=== PATIENT | female | born 1965 | race Caucasian/White ===

== ENCOUNTER 2019-11-20 12:14 | Observation (INO) | payer OTHER, MEDICARE, SELFPAY ==
[2019-09-19 11:06] VITALS: BMI 29.0
[2019-11-15 15:40] VITALS: BMI 29.0
--- NOTE | 2019-11-19 19:29 | HP.PCM_ITS ---
History and Physical Date of Admission: 11/20/19 HISTORY OF PRESENT ILLNESS 53 year old woman presents with complaints of bilateral macromastia as well as associated painful symptomatology of neck pain, thoracic back pain, bilateral shoulder pain from shoulder grooving from the weight of her breasts on her bra straps, and inframammary intertrigo for which she uses powders for relief. She denies any trauma to her breasts. Denies any nipple discharge. She has seen a Chiropractor in the past without much relief in her back pain. She has seen a Physical Therapist in the past without much relief in her back pain. She has a family history of breast cancer. The breast reduction mammaplasty procedure was approved by her insurance company. She had a recent mammogram on 09/25/19. She had a benign density in the right breast. There also are benign calcifications in both breasts. No significant masses, calcifications, or other findings are seen in either breast. Recommend 1 year screening next year. Her insurance company has approved the surgery. It is scheduled for 11/20/19. She presents today for a preop visit to answer any remaining questions and to sign her consent. PAST MEDICAL HISTORY Asthma COPD (chronic obstructive pulmonary disease) PAST SURGICAL HISTORY excision of lesion ALLERGIES No Known Allergies MEDICATIONS Albuterol Inhaler [Ventolin Hfa] Aspirin FAMILY HISTORY Other - Asthma SOCIAL HISTORY Smoking Status: Never smoker alcohol intake: never substance use type: does not use REVIEW OF SYSTEMS General - Denies fever, fatigue, and weight loss. Eyes - Denies cataracts and glaucoma. ENT - Denies nasal congestion and sore throat. Endocrine - Denies excessive thirst and urination. Skin - Denies suspicious lesions and skin cancer. Has inframammary intertrigo for which she uses powders for relief. Musculoskeletal - Denies joint pain, joint stiffness, weakness of muscles and joints, and arthritis. Has neck pain and back pain. Her neck and back pain involve cervical and thoracic area. Has bilateral shoulder pain from shoulder grooving from the weight of her breasts on her bra straps. Neuro - Denies headaches. Cardiovascular - Denies chest pain, fatigue, and shortness of breath with exertion. Psych - Denies anxiety. Has depression. Respiratory - Denies shortness of breath and chronic cough. Gastrointestinal - Denies nausea, vomiting, diarrhea, and constipation. Hematologic - Denies abnormal bruising and bleeding. Genitourinary - Denies hematuria and urinary frequency. PHYSICAL EXAMINATION General - Alert and oriented. Patient's bra size is DDD. HEENT - PERRL. EOMI. Throat is clear. Neck - Supple. No bony tenderness. There is some pericervical soft tissue tenderness. Lungs- Clear to auscultation. Heart - Regular rate and rhythm. Breasts - Patient has bilateral macromastia. No breast masses palpable. No axillary adenopathy noted. Distance from midclavicular line on the left to the nipple is 31 cm and from the nipple to the inframammary fold is 10 cm. Distance from midclavicular line on the right to the nipple is 30 cm and from nipple to the inframammary fold is 11 cm. Nipple areolar complex diameter is 7 cm bilaterally. No active inframammary int ertrigo noted at this time. Abdomen - Soft and non distended. Back - No bony tenderness noted. There is perivertebral soft tissue tenderness in the upper thoracic area. Extremities - FROM. No axillary adenopathy. Radial pulses are palpable. There is some bilateral shoulder tenderness with shoulder grooving from the weight of her breasts on her bra straps. Neuro - CN II-XII grossly intact. Psych - Normal and mood and affect. ASSESSMENT 1. Bilateral macromastia. 2. Neck pain. 3. Thoracic back pain. 4. Bilateral shoulder pain from shoulder grooving from the weight of the breasts on her bra straps. 5. Inframammary intertrigo. 6. Family history of breast cancer. PLAN Discussed with the patient the procedure of breast reduction mammoplasty. I feel this procedure would be beneficial in this patient as it would help relieve her painful symptomatology. Her insurance company has approved the surgery. It is scheduled for 11/20/2019. Her last mammogram was 09/25/19 which was negative for malignancy. I would remove approximately 500 g of breast tissue per side. We will send the tissue to pathology for analysis to rule out carcinoma. Discussed with patient the extent of scarring for this procedure. The biggest risk for wound healing problems is the T-zone area. Usually wound care and sometimes antibiotics are necessary for healing in this area. She would have drains in for a few days depending on the amount of tissue that is removed. She will be on antibiotics until the drains are removed. In general, the final breast size ranges from a high B to a low C cup. Patient voices understanding. Surgery will be done under general anesthesia with a surgical observation overnight stay in the hospital. Patient was informed of the risks and complications of the procedure including alternatives to surgery. These were discussed with her personally. She voices understanding and wishes to proceed. Some of the risks and complications were included in a form from the [employer]. She had some preop questions that were answered personally and to her satisfaction. Her office breast reduction consent was signed.
[2019-11-20] VITALS (14 sets, daily range): BP systolic 96–156; BP diastolic 54–99; PULSE 65–80; RESP 14–18; TEMP 36.1–36.9; O2SAT 16–100; BMI 29.0
--- NOTE | 2019-11-20 05:32 | EKG12_ITS ---
Test Reason : PRE OP Blood Pressure : / mmHG Vent. Rate : 075 BPM Atrial Rate : 075 BPM P-R Int : 148 ms QRS Dur : 086 ms QT Int : 396 ms P-R-T Axes : 050 060 055 degrees QTc Int : 442 ms Normal sinus rhythm with sinus arrhythmia Normal ECG Confirmed by PILAR ANGELA, JONN ([id number]), assignment desk editor PEPPER DIAMOND ([id number]) on 11/21/2019 11:14:46 AM Referred By: Diallo Bañuelos Confirmed By:JONN QUEZADA MD
[2019-11-20 06:05] LABS: Bedside Glucose 108 mg/dL (70-110)
[2019-11-20] MEDS: Lactated Ringers 1,000 ML 60 ML IV ×3 (06:15→13:01)
[2019-11-20] MEDS: Acetaminophen 500 MG Tablet 1000 MG PO ×2 (06:19→17:11)
[2019-11-20] MEDS: Scopolamine 1mg/72hr Patch 1 PATCH TD (06:30)
[2019-11-20] MEDS: Cefazolin 2 GM in 0.9% Normal Saline 100 ML IV (07:30)
--- NOTE | 2019-11-20 07:30 | BR_PTH ---
PATIENT: LUCIANO LOCO LOC: MS3 U#:[id number] AGE/SX: 53/F ROOM: [facility] [place] RE11/20/[address]: Dr. Diallo Bañuelos MD : 1965 BED: 1 DIS: 11/21/2019 SPEC #: [id number] RECD: 11/20/19 13:57 STATUS: VERÓNICA PAGE #: [id number] JESSICA: 11/20/19 07:[address]: Diallo Bañuelos DEPT: SURGICAL PATHOLOGY RECD BY: Ovi Lang ENTERED: 11/21/19 10:43 SP TYPE: MAMOPLASTY OTHR DR: Dr. Nayely Villalobos, DO Tissues: A - Right breast, NOS B - Left breast, NOS Procedures: Surgery Specimen Level IV HEADER OPERATION: Breast reduction mammoplasty PRE-OP DIAGNOSIS: Bilateral macromastia, neck pain, thoracic back pain, bilateral shoulder pain, inframammary intertrigo TISSUE SUBMITTED: A. Right breast tissue, B. Left breast tissue MICROSCOPIC DIAGNOSIS A. Right breast tissue, reduction mammoplasty: Fragments of benign breast tissue (535 gm). Skin, no pathologic diagnosis. B. Left breast tissue, reduction mammoplasty: Fragments of benign breast tissue (561 gm). Skin, no pathologic diagnosis. SJ:garret 11/22/19 MICROSCOPIC DESCRIPTION Slides are reviewed. GROSS DESCRIPTION A - Received in fixative is one container labeled with the patient's name and designated right breast. The specimen consists of 12 fragments of segura-yellow fibrofatty tissue ranging in size from 1 cm to 13 cm and weighing 535 gm. The larger fragment contains grossly unremarkable skin. The fragments are segura-yellow in appearance. Cut surfaces reveal mostly yellow tissue with focal white, firm tissue. No distinct mass lesion is identified. [employer] Worker sections are submitted in five cassettes. / AM:garret 11/21/19 B - Received in fixative is one container labeled with the patient's name and designated left breast tissue. The specimen consists of pieces of fibroadipose tissue with a few of the pieces showing overlying skin piece weighing in aggregate 561 gm and measuring 23 x 21 x 8 cm. Sections reveal yellow adipose cut surfaces mixed with segura-white fibrous area. No obvious mass lesion is identified. No skin lesion is identified. [employer] Worker sections are submitted in six cassettes. Cassette 6 contains the skin piece. / SJ:garret 11/21/19 TC:5 CPT: 56067 x2
--- NOTE | 2019-11-20 12:07 | OP.PCM_ITS ---
Report of Operation Date of Procedure: 11/20/19 Pre-Operative Diagnosis: 1. Bilateral macromastia. 2. Neck pain. 3. T horacic back pain. 4. Bilateral shoulder pain from shoulder grooving from the weight of the breasts on her bra straps. 5. Inframammary intertrigo. 6. Family history of breast cancer. Post-Operative Diagnosis: Same. Surgery/Procedure Performed:: Bilateral breast reduction mammaplasty. Description of Surgical Findings:: 53 year old woman presents with complaints of bilateral macromastia as well as associated painful symptomatology of neck pain, thoracic back pain, bilateral shoulder pain from shoulder grooving from the weight of her breasts on her bra straps, and inframammary intertrigo for which she uses powders for relief. She denies any trauma to her breasts. Denies any nipple discharge. She has seen a Chiropractor in the past without much relief in her back pain. She has seen a Physical Therapist in the past without much relief in her back pain. She has a family history of breast cancer. The breast reduction mammaplasty procedure was approved by her insurance company. She had a recent mammogram on 09/25/19. She had a benign density in the right breast. There also are benign calcifications in both breasts. No significant masses, calcifications, or other findings are seen in either breast. Recommend 1 year screening next year. Her insurance company has approved the surgery. Patient was informed of the risks and complications of the procedure including alternatives to surgery. These were discussed with the patient personally. Patient voices understanding and wishes to proceed. Some of the risks and complications were included in a form from the [place] [employer] [employer]. IV Fluids - 2000 ml. Urine Output - 600 ml. Tissue removed from the left breast - 544 grams. Tissue removed from the right breast - 542 grams. I used David absorbable hemostat, (I used 4 vials, 2 in each breast). Reference Number - [id number]. Lot Number - [id number]. Expiration - July 11, 2024, (2 vials in left breast). Reference Number - [id number]. Lot Number - [id number]. Expiration - September 10, 2023, (2 vials in right breast). pilot fuel engineer: Aj Pride. Type of Anesthesia:: General Specimen's removed: 1. Left breast tissue to Pathology. 2. Right breast tissue to Pathology. Drains: Sameer x2 (one in each breast). Estimated Blood Loss (mL): 250 ml. Fluids Replaced: 2600 ml (IV Fluids 2000 ml, Urine Output 600 ml). Description of Procedure: In the preop area, the patient was placed in the sitting position and preoperative markings were made. The sternum midline was marked down to the umbilicus. The inframammary folds were marked bilaterally. The midclavicular line was then marked down to the nipple, then from the nipple to the inframammary fold. The inframammary fold was then superimposed on the midclavicular line and I made a point 1 cm below that to be the new position of the nipple-areolar complex. 7 cm lines were then drawn divergent from that point to encompass the nipple-areolar complex. The distance between the divergent lines was 9 cm. The patient was then placed in the supine position and taken to the operating room and placed under general anesthesia and her breasts were prepped and draped in usual fashion. Ioban draping was also used. SCDs were placed for DVT prophylaxis. Perioperative antibiotics were given intravenously. A Girard catheter was also placed. I then tattooed the preoperative markings with methylene blue and 25-gauge needle. I also tattooed the 12 o'clock position of the nipple-areolar complex to help with positioning of the nipple-areolar complex when it is brought through the keyhole incision at the end of the procedure to minimize kinking and twisting of the central breast mound pedicle. I then bandar straight lines down from the lines drawn divergent around the nipple-areolar complex down to the inframammary fold. The width of the pedicle is 9 cm. I then used a 42 mm circular template for a new size of the nipple-areolar complex. The central markings were infiltrated with Xylocaine and epinephrine. The central skin was then deepithelialized. I started on the right side first and then went to the left side. I then mobilized medial and lateral breast flaps at the level of Naheed's fascia down to within a centimeter of the chest wall. This was met in the midline of the breast with dissection at the level of Naheed's fascia down to within a centimeter of the chest wall. Once the central breast mound pedicle was from the skin envelope, the reduction was then begun. Most of the tissue was removed from the superior aspect of the breast and the lateral aspect of the breast. I then sutured the leading edge of the medial and lateral breast flaps to the midline of the inframammary fold with 2-0 Vicryl suture. The vertical incision was approximated using surgical clips. The excess tissue from the medial and lateral breast flaps were excised and the horizontal incision was approximated using surgical clips. The patient was then placed in a sitting position. Using a vertical limb length of 4.5 cm, I bandar the new position of the new nipple-areolar complexes on both breasts. They were in good position on the central aspect of the breast mound. Good symmetry was noted between the left breast and the right breast. Good shape and contour and projection was noted and appeared clinically to be a C cup. The patient was then placed back in the supine position and the surgical clips were removed. The breast wounds were then irrigated with Irrisept 0.05% Chlorhexidine solution which was followed by saline irrigation. Hemostasis was obtained using electrocautery. The tissue removed from the left breast was 544 grams. The tissue removed from the right breast was 542 grams. The tissue that was removed from the breasts was sent to Pathology for analysis to rule out carcinoma. After hemostasis was obtained using electrocautery, I then sprayed David absorbable hemostat into both breast wounds. I used two vials for each side. I then placed a size 15 Sameer drain into each breast wound to be brought through the lateral aspect of the horizontal incision. I then closed the breast wounds by first approximating the leading edge of the medial and lateral breast flaps to the midline of the inframammary fold with 2-0 Vicryl suture. The deep dermis and subcutaneous tissue of the vertical incision and the horizontal incisions were approximated using 3-0 Monocryl interrupted sutures. The horizontal incision was then approximated using 4-0 V-Loc unidirectional barbed running subcuticular suture. I also placed a few 4-0 Prolene vertical mattress interrupted sutures at the level of the Tzone. The vertical incision was then closed on the skin with 4-0 Prolene interrupted sutures. With a vertical limb length of 4.5 cm, I bandar a circular incision where the nipple-areolar complex would be brought through this keyhole incision. Incisions were made and the nipple areolar complex was brought through the keyhole incision. The 12 o'clock position of the nipple- areolar complex was lined up with the 12 o'clock position of the breast skin. The nipple-areolar complex was secured to the breast skin using 3-0 Monocryl interrupted sutures for deep dermis and subcutaneous tissue. The skin was approximated using 4-0 Prolene simple interrupted sutures. This was then covered with Histoacryl skin tissue adhesive. I sutured the drain to the skin using 3-0 nylon suture. At the end of the procedure, the breasts were soft with no evidence of vascular compromise. No evidence of hematomas were noted. The nipples were viable. I then dressed the breasts with a Kerlix gauze and a surgical bra. The patient tolerated the procedure well and will be sent to the recovery room in satisfactory condition. She will be admitted for surgical observation overnight stay. She will go home tomorrow once she is tolerating oral pain medication. I will remove the drains in a few days. She will be maintained on antibiotics until the drains are removed. She will keep her head elevated during the initial postoperative period. She will be maintained on a lifting restriction and keep her head elevated during the initial postoperative period. Postoperatively, she may get a compression sports bra as well. She will have the Girard removed in the morning. She will be sent home on antibiotics and pain medicine. Sutures will be removed in 1-2 weeks. Grafts/Implants Used: None. - Complications None. - Admit VTE Documentation VTE Present on Admission: No VTE Mechan Device Prophylaxis: SCD's VTE Pharm Prophylaxis ordered?: Yes Code Visit Surgery Charges CPT - 53463 ICD-10 - N62, M54.2, M54.6, M25.519, L30.4, Z80.3 40254-52 N62, M54.2, M54.6, M25.519, L30.4, Z80.3
[2019-11-20] MEDS: Cefazolin 1 GM/50 ML BAG IV ×2 (15:32→21:22)
[2019-11-20] MEDS: Ensure Surgery 237 ML LIQUID PO (17:10)
[2019-11-20] MEDS: Docusate Sodium 100 MG Capsule PO (21:22)
[2019-11-21] MEDS: Acetaminophen 500 MG Tablet 1000 MG PO ×3 (00:17→11:58)
[2019-11-21 02:15] VITALS: BP 98/59; PULSE 88; RESP 18; TEMP 36.8; O2SAT 94
[2019-11-21] MEDS: oxyCODONE 5 MG Tablet PO (02:19)
[2019-11-21] MEDS: Lactated Ringers 1,000 ML 60 ML IV (02:20)
[2019-11-21] MEDS: Cefazolin 1 GM/50 ML BAG IV (05:04)
[2019-11-21 05:17] LABS: Hemoglobin 9.8 g/dL (12.0-15.0); Mean Corp Hgb Conc 31.6 g/dL (32-36); Mean Corpuscular Hgb 28.4 pg (27.0-32.0); Mean Corpuscular Volume 89.9 fL (81-99); Mean Platelet Vol. 9.8 fl (6.2-12.0); Platelet Count 258 K/mm3 (150-450); RBC Distribution Width CV 13.2 % (11.6-14.6); RBC Distribution Width SD 42.9 fl (35.1-43.9); Red Blood Count 3.45 M/mm3 (4.2-5.4); White Blood Count 12.4 K/mm3 (4.4-11.0)
[2019-11-21 05:37] LABS: Anion Gap 4 (5-15); BUN 10 mg/dL (7-18); Calcium,Total 7.6 mg/dL (8.5-10.1); Chloride 106 mmol/L (98-107); EST Glomerular Filtration Rate 69 mL/min (>60); Est Glom Filt Rate - Afr Amer 84 mL/min (>60); Estimated Creatinine Clearance 57.83 ml/min; Glucose 117 mg/dL (74-106); Potassium 3.9 mmol/L (3.5-5.1); Prealbumin 18.2 mg/dL (20.0-40.0); Sodium Level 139 mmol/L (136-145)
[2019-11-21 07:50] VITALS: O2SAT 93
[2019-11-21] MEDS: Docusate Sodium 100 MG Capsule PO (08:19)
[2019-11-21] MEDS: Ensure Surgery 237 ML LIQUID PO ×2 (08:20→11:58)
[2019-11-21 08:24] VITALS: BP 112/72; PULSE 95; RESP 16; TEMP 36.8; O2SAT 96
[2019-11-21 11:54] VITALS: BP 105/65; PULSE 96; RESP 16; TEMP 37.1; O2SAT 96
--- NOTE | 2019-11-21 12:17 | PN.SURG_ITS ---
Subjective: Postop #1 Has incisional pain. Tolerating po analgesia. - Physical Exam Vitals/I&O's: Vital Signs Temp Pulse Resp BP Pulse Ox 98.7 F 96 16 105/65 96 11/21/19 11:54 11/21/19 11:54 11/21/19 11:54 11/21/19 11:54 11/21/19 11:54 Oxygen Flow Rate (L/min) 6 Oxygen Delivery Method Room Air Weight: 158 lb 15.253 oz Body Mass Index (BMI) 29.0 Intake and Output for Last 24 Hours 11/19/19 11/20/19 11/21/19 23:59 23:59 23:59 Intake Total 3063 / 3063 656 / 656 Output Total 959 / 1229 680 / 680 Balance 2104 / 1834 -24 / -24 Drainage from yesterday 134 ml, 180 ml today. General: Alert, Oriented x3 HEENT: PERRLA, EOMI Oral: Moist Mucosa Neck: Supple Abdomen: Soft, Non-Distended Skin: Incision - breast incisions are dry and intact. Breasts are soft and symmetrical. Good breast contour noted. Nipples are viable. Neurological: Cranial nerves II-XII grossly intact Psych/Mental Status: Normal Affect, Appropriate Laboratory Results 11/21/19 04:48: Sodium 139, Potassium 3.9, Chloride 106, Carbon Dioxide 29.0, A nion Gap 4 L, BUN 10, Creatinine 0.90, Estim Creat Clear Calc 57.83, Est GFR (MDRD) Af Amer 84, Est GFR (MDRD) Non-Af 69, BUN/Creatinine Ratio 11.0, Glucose 117 H, Calcium 7.6 L, Prealbumin 18.2 L 11/21/19 04:48: WBC 12.4 H, RBC 3.45 L, Hgb 9.8 L, Hct 31.0 L, MCV 89.9, MCH 28.4, MCHC 31.6 L, RDW Std Deviation 42.9, RDW Coeff of Ana Maria 13.2, Plt Count 258, MPV 9.8 Current Medications Acetaminophen (Tylenol) 1,000 mg PO Q6 CLARISA Last Admin: 11/21/19 11:58 Dose: 1,000 mg Documented by: Albuterol Sulfate (Ventolin Aerosols) 2.5 mg INHALATION Q4H PRN PRN Reason: Wheezing Docusate Sodium (Colace) 100 mg PO BID [facility] Last Admin: 11/21/19 08:19 Dose: 100 mg Documented by: Enteral Nutritional Formula (Ensure Surgery) 237 ml PO TIDCM [facility] Last Admin: 11/21/19 11:58 Dose: 237 ml Documented by: Gabapentin (Neurontin) 200 mg PO TIDCM [facility] Last Admin: 11/21/19 11:56 Dose: Not Given Documented by: Hydromorphone HCl (Dilaudid Inj) 0.5 - 1 mg IV Q3H PRN PRN PRN Reason: Pain Score 6-10/10 Cefazolin Sodium () 1 gm in 50 mls @ 100 mls/hr IV Q8 [facility] Last Infusion: 11/21/19 05:34 Dose: Infused Documented by: Magnesium Oxide (Mag-Ox 400) 400 mg PO BID PRN PRN PRN Reason: Constipation Ondansetron HCl (Zofran Odt) 4 mg PO Q6H PRN PRN PRN Reason: NAUSEA Oxycodone HCl (Oxyir) 5 - 10 mg PO Q4H PRN PRN PRN Reason: Pain Score 4-10/10 Last Admin: 11/21/19 02:19 Dose: 5 mg Documented by: Scopolamine HBr (Transderm-Scop) 1 patch TD Q3D [facility] Stop: 11/21/19 13:06 Last Admin: 11/20/19 06:30 Dose: 1 patch Documented by: Sodium Chloride () 10 - 40 ml IV UD PRN PRN Reason: SALINE FLUSH Medical Necessity - Tobacco Use Smoking Status: Never smoker Tobacco Use: Non-smoker Assessment/Plan 1. Bilateral macromastia. 2. Neck pain. 3. Thoracic back pain. 4. Bilateral shoulder pain from shoulder grooving from the weight of the breasts on her bra straps. 5. Inframammary intertrigo. 6. Family history of breast cancer. 7. s/p bilateral breast reduction mammaplasty. Has incisional pain. Tolerating po analgesia. Prealbumin was 18.2. Encourage nutritional supplementation with protein to help the healing process. Will remove the drains in the office. Discharge home today. Followup office Tuesday11/26/19. Keep head elevated and maintain lifting restriction. Continue surgical bra. Wrote script for Cefadroxil until the drains are removed. Wrote script for Percocet (40 tabs). Wrote scripts for Zofran for nausea (30 tabs) and a refill and for Colace for constipation (60 tabs).
--- NOTE | 2019-11-21 12:32 | DCINST_ITS ---
You will use the following diet at home:: No restrictions, Other - encourage nutritional supplementation with protein to help the healing process. Discharge Activity: May not drive while taking narcotic pain medications., May Not Shower - until the drains are removed., - - keep head elevated. no heavy lifting. May shower in (days): 5 - after the drains are removed in the office. May resume sexual activity in: No Restrictions Weight Bearing Status: Weight bearing as tolerated Lifting Restrictions: 20 lbs. Keep extremity elevated above heart level: - - elevate head. Call your doctor if your incision/area has: Continuous Slow Oozing, Sudden Increased Bleeding, Increased Pain/ Swelling, Increased Redness, Foul Smelling Discharge, Swelling at the incision site, - - black nipples. Call your doctor if you observe: Fever of 101 or Higher, Coldness, Increased Pain, Shortness of breath, Chest pain, Calf discomfort, Uncontrolled pain Suture Line Care: - - dry dressings every other day. Change Dressing in (Days):: 2 - dry dressings every other day. Cleanse incision/area with: - - may get incisions wet in the shower after the drains are removed in the office. Drain: Suction - jordyn drain x2 to bulb suction. empty and record drainage output daily. Allergies/Adverse Reactions: Allergies No Known Allergies Allergy (Verified 11/15/19 15:39) Medications to take at Discharge Albuterol Inhaler [Ventolin Hfa] 2 puff INHALATION Q6H PRN PRN 01/01/15 Cefadroxil [Duricef] 500 mg PO BID #10 cap 11/21/19 Docusate Sodium [Colace] 100 mg PO BID #60 cap 11/21/19 Ondansetron [Zofran Odt] 4 mg PO 4X/DAY PRN PRN #30 tab 11/21/19 Oxycodone HCl/Acetaminophen [Percocet 5/325] 1 tablet PO Q4H PRN PRN 7 Days #40 tablet 11/21/19 The following prescriptions were given: Docusate Sodium [Colace] 100 mg PO BID #60 cap Transmission Status: Pending to [facility]/pharmacy #[id number] Cefadroxil [Duricef] 500 mg PO BID #10 cap Transmission Status: Sent to [facility]/pharmacy #[id number] Oxycodone HCl/Acetaminophen [Percocet 5/325] 1 tablet PO Q4H PRN PRN 7 Days #40 tablet PRN Reason: Pain Score 4-5/10 Transmission Status: Received by [facility]/pharmacy #[id number] Ondansetron [Zofran Odt] 4 mg PO 4X/DAY PRN PRN #30 tab PRN Reason: NAUSEA Transmission Status: Pending to [facility]pharmacy #[id number] Primary Care Physician: Nayely Villalobos DO [Primary Care Provider] - Test Results: Test results from this visit will be discussed in further detail at your follow- up appointment, if applicable. Please Follow Up With: Diallo Bañuelos MD When: tuesday11/26/19. call [phone] for appt. Proposed Discharge Date: 11/21/19
--- NOTE | 2019-11-21 13:29 | CASEMGMT ---
ÁNGEL LOOMIS attempted to complete ANGUIANO form with patient. Patient has been discharged and has already left the hospital, unable to complete ANGUIANO form.
== END 2019-11-21 13:23 | disposition home or self-care (01) ==
LOC: MS3 20:27
PROVIDERS: Admitting Provider Surgery; Referring Provider Surgery; Visit Provider Surgery
PROC: 0H0U0ZZ Alteration of Left Breast, Open Approach (ICD-10-PCS; CPT 19318; principal; 2019-11-20 07:15)
DX: N62 Hypertrophy of breast (principal); M54.2 Cervicalgia; M54.6 Pain in thoracic spine; M25.512 Pain in left shoulder; M25.511 Pain in right shoulder; L30.4 Erythema intertrigo; Z80.3 Family history of malignant neoplasm of breast; Z79.82 Long term (current) use of aspirin; J44.9 Chronic obstructive pulmonary disease, unspecified
CPT/HCPCS: 19318; 36415; 80048; 82962; 84134; 85027; 88305; 93005; 96365; 96366; 99218; 99251; J7120; G0378; G0379; G0463; J2405; Q9968

== ENCOUNTER 2020-08-26 06:20 | Day surgery (SDC) | payer OTHER, MEDICARE, SELFPAY ==
[2020-07-24 15:31] VITALS: BMI 29.0
--- NOTE | 2020-08-25 21:18 | HP.PCM_ITS ---
History and Physical Date of Admission: 08/26/20 HISTORY OF PRESENT ILLNESS 54 year old woman presents with a painful actinic scar contour deformity right lower cheek after having surgery on 08/16/17 where she underwent excision 2.2 cm actinic lesion right lower cheek with rhomboid transposition skin flap reconstruction (12.5 cm2). At the medial edge of the healed incision there is a nodular scar contour deformity that has discomfort when she bumps it. She denies fever. She denies trauma. She presents at this time for further evaluation and treatment. PAST MEDICAL HISTORY Unspecified open wound of right cheek and temporomandibular area, sequela Actinic keratosis Intertrigo Shoulder pain Chronic thoracic back pain Chronic neck pain Macromastia Asthma COPD (chronic obstructive pulmonary disease) PAST SURGICAL HISTORY excision of lesion S/P bilateral breast reduction ALLERGIES No Known Allergies MEDICATIONS Albuterol Inhaler [Ventolin Hfa] Ondansetron [Zofran Odt] clopidogrel cyclobenzaprine metoprolol succinate FAMILY HISTORY Other - Asthma, Family history of skin cancer SOCIAL HISTORY Smoking Status: Never smoker alcohol intake: never substance use type: does not use REVIEW OF SYSTEMS General - Complains of fatigue, Denies fever and weight loss. Eyes - Denies eye pain, denies cataracts, denies glaucoma. ENT - Complains of decreased hearing, Denies nasal congestion and sore throat. CV - Complains of fatigue, Denies chest pain or discomfort, lightheadedness and shortness of breath with exertion. Resp - Denies cough and shortness of breath. GI - Denies nausea, vomiting, diarrhea and constipation. - Denies blood in urine and urinary frequency. MS - Denies joint pain, back pain, stiffness, muscle weakness and arthritis. Derm - Denies skin cancer. Has painful actinic scar contour deformity right lower cheek, has family history of skin cancer. Neuro - Denies headaches. Psych - Denies anxiety and depression. Endo - Denies excessive urination and excessive thirst. Heme - Denies bleeding and abnormal bruising. PHYSICAL EXAMINATION General - well developed, well nourished, in no acute distress. Head - normocephalic and atraumatic. on the right lower cheek is a 7 mm nodular scar contour deformity at the medial edge of previous scar from surgery in 08/30 where she underwent excision 2.2 cm actinic lesion right lower cheek with rhomboid transposition skin flap reconstruction (12.5 cm2). Slight discomfort when it is palpated. No ulceration. No discoloration noted. EENT - PERRL/EOM intact, conjunctiva and sclera clear. Throat is clear. She smiles symmetrically. No suspicious lesions noted Neck - no masses, thyromegaly, or abnormal cervical nodes. No suspicious lesions noted Lungs - clear bilaterally to auscultation. Heart - regular rate and rhythm. Pulses - radial pulses are palpable. Extremities - no clubbing, cyanosis, edema, or deformity noted with normal full range of motion of all joints. No suspicious lesions noted. Neurologic - cranial nerves II-XII grossly intact. Skin - no rashes. Cervical Nodes - no significant adenopathy. Axillary Nodes - no significant adenopathy. Psych - alert and cooperative; normal mood and affect; normal attention span and concentration. ASSESSMENT 1. 7 mm painful actinic scar contour deformity right lower cheek at medial edge of previous scar. 2. History of excision actinic keratosis right lower cheek with skin flap reconstruction. 3. Actinic keratosis right lower cheek. 4. Family history of skin cancer. PLAN Recommend excision of this painful actinic scar contour deformity right lower cheek at medial edge of previous scar and send the tissue to Pathology for analysis to rule out carcinoma. Surgery will be done under local anesthesia and IV sedation on an outpatient basis. She recently had cardiac stents placed and is on Plavix. Will check with her Bar Host/Hostess when it is safe to proceed with elective surgery after the stents were placed and if the Plavix can be stopped before the surgery. Patient was informed of the risks and complications of the procedure including alternatives to surgery. These were discussed with the patient personally. Patient voices understanding and wishes to proceed. Some of the risks and complications were included in a form from the [employer]. We discussed the current risks associated with COVID-19. While it is understood that there is a community spread of COVID-19, the risk of anna COVID-19 while at [facility] ([facility]) is very low; however, the risk cannot be completely mitigated because of the community spread of the disease. We discussed in detail the risk of exposure to and/or potential harm posed by the COVID-19 virus with having a surgery/procedure at this time versus the risk of delaying the surgery/procedure. It is not possible to know either the risk of delaying the surgery or procedure or chance of getting an infection with perfect accuracy, but a joint decision was made to proceed at this time with the scheduled surgery/procedure as indicated on the consent form. Patient was notified that we will need to comply with any screening or testing WC wishes to perform or that surgery may be delayed for any positive results. Discussed with the patient that I was tested for COVID-19 on 05/15/20 which was negative and on 05/29/20 which was negative and on 06/12/20 which was negative and on 06/26/20 which was negative and on 07/10/20 which was negative and on 07/31/20 which was negative and on 08/21/20 which was negative. My testing regimen at th is time is to be COVID-19 tested every 2 weeks or so. Procedure Criteria Procedure Type: Elective COVID Risk Discussion: The surgeon/proceduralist and patient have discussed in detail the risk of exposure to and/or potential harm posed by the COVID-19 virus with having a surgery/procedure at this time versus the risk of delaying the surgery/procedure. It is not possible to know either the risk of delaying the surgery or procedure or chance of getting an infection with perfect accuracy, but a joint decision was made between the patient and the surgeon/proceduralist to proceed at this time with the scheduled surgery/procedure as indicated on the consent form.
--- NOTE | 2020-08-26 | LES_PTH ---
PATIENT: LUCIANO LOCO LOC: [facility] [place] U#:[id number] AGE/SX: 54/F ROOM: RE08/26/[address]: Dr. Diallo Bañuelos MD : 1965 BED: DIS: 08/26/2020 SPEC #: [id number] RECD: 08/26/20 10:18 STATUS: VERÓNICA PAGE #: [id number] JESSICA: 08/26/20 00:[address]: Diallo Bañuelos DEPT: SURGICAL PATHOLOGY RECD BY: Rad Loaiza ENTERED: 08/26/20 10:19 SP TYPE: Lesion OTHR DR: Dr. Nayely Villalobos, Tissues: Skin of face, NOS Procedures: Surgery Specimen Level IV HEADER OPERATION: Excision painful scar contour deformity, medial cheek PRE-OP DIAGNOSIS: 7 mm painful actinic scar contour deformity right lower cheek at medial edge of previous scar TISSUE SUBMITTED: 7 mm painful actinic scar contour deformity right lower cheek at medial edge of previous scar, suture at 12 o'clock MICROSCOPIC DIAGNOSIS Right lower cheek, excision painful scar deformity: A piece of skin with focal dermal fibrosis consistent with scar and mild chronic inflammation. Negative for malignancy. MARCUS:garret 08/27/20 COMMENT Case has been reviewed in consultation with Dr. Herring who concurs with the above diagnosis. FAROOQ:SATINDER MICROSCOPIC DESCRIPTION Slides are reviewed. GROSS DESCRIPTION Received in fixative is one container labeled with the patient's name and designated right lower cheek. The specimen consists of an ellipse of light segura excised skin measuring 2 x 0.6 cm and a depth of excision measuring 0.5 cm. A suture is present at one tip. This tip and corresponding half is inked in yellow ink. The opposite half is inked in black ink. The specimen is serially sectioned and totally submitted in one cassette. / AM:garret 08/26/20 TC:5 CPT: 27990
[2020-08-26 06:48] VITALS: BP 146/92; PULSE 72; RESP 16; TEMP 36.6; O2SAT 96; BMI 29.0
[2020-08-26] MEDS: Lactated Ringers 1,000 ML 100 ML IV (07:10)
[2020-08-26] MEDS: Mupirocin Ointment 22gm Tube 1 APPLIC (09:43)
--- NOTE | 2020-08-26 09:49 | PCM.OPRPT ---
Report of Operation Date of Procedure: 08/26/20 Pre-Operative Diagnosis: 1. 7 mm painful actinic scar contour deformity right lower cheek at medial edge of previous scar. 2. History of excision actinic keratosis right lower cheek with skin flap reconstruction. 3. Actinic keratosis right lower cheek. 4. Family history of skin cancer. Post-Operative Diagnosis: Same. Surgery/Procedure Performed:: Surgical preparation right lower cheek at medial edge of previous scar with excisional debridement painful actinic scar contour deformity and 2.5 cm complex secondary wound closure. Description of Surgical Findings:: 54 year old woman presents with a painful actinic scar contour deformity right lower cheek after having surgery on 08/16/17 where she underwent excision 2.2 cm actinic lesion right lower cheek with rhomboid transposition skin flap reconstruction (12.5 cm2). At the medial edge of the healed incision there is a nodular scar contour deformity that has discomfort when she bumps it. She denies fever. She denies trauma. Patient was informed of the risks and complications of the procedure including alternatives to surgery. These were discussed with the patient personally. Patient voices understanding and wishes to proceed. Some of the risks and complications were included in a form from the [employer]. lead software developer: None Type of Anesthesia:: Local MAC - xylocaine with epinephrine and IV sedation. Specimen's removed: Painful actinic scar contour deformity right lower cheek at medial edge of previous scar to Pathology. Drains: None. Estimated Blood Loss (mL): 5 ml. Description of Procedure: Patient was taken to OR in supine position and was given IV sedation. The right face was prepped and draped in the usual fashion. SCD's were placed for DVT prophylaxis. Perioperative antibiotics were given intravenously. For the procedure, I wore an N95 mask and wore proper eyewear protection. The painful actinic scar contour deformity right lower cheek at medial edge of previous scar was infiltrated with xylocaine and epinephrine. After waiting 5 minutes for the anesthetic to take effect, I proceeded with surgical preparation right lower cheek at medial edge of previous scar with excisional debridement painful actinic scar contour deformity down into the subcutaneous tissue. A suture was marked at 12 oclock position for pathology orientation. The painful actinic scar contour deformity was sent to Pathology for analysis to rule out carcinoma. Hemostasis was obtained with electrocautery. A complex secondary wound closure was performed with 5-0 Monocryl interrupted sutures for the deep dermis and subcutaneous tissue. The skin was approximated with 6-0 Prolene simple interrupted sutures. Steri-strips were applied followed by antibiotic ointment. The length of the complex secondary wound closure was 2.5 cm. Patient tolerated the procedure well and was sent to PACU in satisfactory condition. Patient will be sent home on antibiotics and pain medication. She will keep her head elevated during the initial postoperative period. Patient will followup in a week for a wound check and for discussion of the pathology report and for removal of the sutures. Grafts/Implants Used: None. - Complications None. - Admit VTE Documentation VTE Present on Admission: No VTE Mechan Device Prophylaxis: SCD's VTE Pharm Prophylaxis ordered?: No Surgery Charges CPT - 81587 ICD-10 - S01.401S, L57.0, Z98.890, Z80.8 69188 S01.401S, L57.0, Z98.890, Z80.8
[2020-08-26 09:55] VITALS: BP 123/78; BP 146/92; PULSE 80; RESP 16; TEMP 36.6; O2SAT 97
[2020-08-26 10:00] VITALS: BP 133/80; BP 146/92; PULSE 74; RESP 16; O2SAT 95
--- NOTE | 2020-08-26 10:00 | DCINST_ITS ---
You will use the following diet at home:: No restrictions Discharge Activity: May not drive while taking narcotic pain medications., May Shower - in two days., - - keep head elevated. no heavy lifting. May shower in (days): 2 May resume sexual activity in: No Restrictions Ice area for (Minutes): 5 - as needed for facial swelling. Weight Bearing Status: Weight bearing as tolerated Lifting Restrictions: 20 lbs. Keep extremity elevated above heart level: - - elevate head. Call your doctor if your incision/area has: Continuous Slow Oozing, Sudden Increased Bleeding, Increased Pain/ Swelling, Increased Redness, Foul Smelling Discharge, Swelling at the incision site Call your doctor if you observe: Fever of 101 or Higher, Coldness, Increased Pain, Shortness of breath, Chest pain, Calf discomfort, Uncontrolled pain Suture Line Care: - - apply antibiotic ointment to suture line daily. Allergies/Adverse Reactions: Allergies No Known Allergies Allergy (Verified 08/26/20 06:46) Medications to take at Discharge Albuterol Inhaler [Ventolin Hfa] 2 puff INHALATION Q6H PRN PRN 01/01/15 Ondansetron [Zofran Odt] 4 mg PO 4X/DAY PRN PRN #30 tab 11/21/19 clopidogrel 75 mg tablet 75 mg PO DAILY 07/24/20 cyclobenzaprine 10 mg tablet 10 mg PO HS 07/24/20 metoprolol succinate 25 mg tablet,extended release 24 hr 25 mg PO DAILY 07/24/20 Clindamycin HCl [Cleocin] 300 mg PO TID #15 cap 08/26/20 Lactobacillus Acidophilus/Fos [Acidophilus Probiotic Tablet] 1 ea PO BID #20 tab 08/26/20 Oxycodone HCl/Acetaminophen [Percocet 5/325] 1 tablet PO Q6H PRN PRN 4 Days #20 tablet 08/26/20 The following prescriptions were given: Lactobacillus Acidophilus/Fos [Acidophilus Probiotic Tablet] 1 ea PO BID #20 tab Transmission Status: Pending to [id number] Clindamycin HCl [Cleocin] 300 mg PO TID #15 cap Transmission Status: Pending to [id number] Oxycodone HCl/Acetaminophen [Percocet 5/325] 1 tablet PO Q6H PRN PRN 4 Days #20 tablet PRN Reason: Pain Score 6-10 Transmission Status: Received by [id number] Primary Care Physician: Nayely Villalobos DO [Primary Care Provider] - Test Results: Test results from this visit will be discussed in further detail at your follow- up appointment, if applicable. Please Follow Up With: Diallo Bañuelos MD When: one week. call [phone] for appt. Proposed Discharge Date: 08/26/20
[2020-08-26 10:05] VITALS: BP 115/82; BP 146/92; PULSE 71; RESP 16; O2SAT 95
[2020-08-26 10:09] VITALS: BP 131/99; BP 146/92; PULSE 71; RESP 16; TEMP 36.2; O2SAT 96
[2020-08-26] MEDS: Acetaminophen 325 MG Tablet PO (10:45)
[2020-08-26] MEDS: oxyCODONE 5 MG Tablet PO (10:45)
[2020-08-26 11:10] VITALS: BP 142/83; BP 146/92; PULSE 72; RESP 16; TEMP 36.9; O2SAT 100
--- NOTE | 2020-08-27 16:48 | PCM.WORK.EX ---
Work/School Excuse Work/School Excuse for:: Caregiver/Parent/Family - Tl Hernandez, (spouse) Please excuse this person from:: Work From: 08/26/20 through: 08/27/20
== END 2020-08-26 11:10 | disposition home or self-care (01) ==
LOC: SDC 06:20 → AC 06:21
PROVIDERS: Anesthesiology; Referring Provider Surgery; Visit Provider Surgery
PROC: (CPT 13160; principal; 2020-08-26 08:30)
DX: L90.5 Scar conditions and fibrosis of skin (principal); S01.4 Open wound of cheek and temporomandibular area; L57.0 Actinic keratosis; Z98.890 Other specified postprocedural states; Z80.8 Family history of malignant neoplasm of other organs or systems; Z11.59 Encounter for screening for other viral diseases; I10 Essential (primary) hypertension; J44.9 Chronic obstructive pulmonary disease, unspecified; Z78.0 Asymptomatic menopausal state; Z95.5 Presence of coronary angioplasty implant and graft; Z79.02 Long term (current) use of antithrombotics/antiplatelets; Z79.899 Other long term (current) drug therapy
CPT/HCPCS: 00300; 13160; 15004; 87635; 88305; C9803; J7120; U0003

== ENCOUNTER 2021-08-10 06:52 | Day surgery (SDC) | payer MEDICARE, SELFPAY ==
[2021-08-10] VITALS (7 sets, daily range): BP systolic 119–155; BP diastolic 73–85; PULSE 59–66; RESP 18–20; TEMP 35.9–36.5; O2SAT 94–98; BMI 28.3
--- NOTE | 2021-08-10 | EGD_PTH ---
PATIENT: LUCIANO LOCO LOC: [facility] U#:[id number] AGE/SX: 55/F ROOM: RE08/10/[address]: Dr. Be Chapman DO : 1965 BED: DIS: 08/10/2021 SPEC #: [id number] RECD: 08/10/21 12:07 STATUS: VERÓNICA PAGE #: [id number] JESSICA: 08/10/21 00:[address]: Be Chapman DEPT: SURGICAL PATHOLOGY RECD BY: Rad Loaiza ENTERED: 08/10/21 12:07 SP TYPE: EGD BIOPSY MACI DR: Dr. Nayely Villalobos DO Tissues: A - Esophageal mucous membrane B - Gastric mucous membrane Procedures: Special Stain Group II Surgery Specimen Level IV Alcian Blue/PAS (control) HEADER OPERATION: EGD ([facility] [place]) PRE-OP DIAGNOSIS: GERD, hiatal hernia, dysphagia TISSUE SUBMITTED: A ? Distal esophagus biopsy, B ? Gastric body biopsy MICROSCOPIC DIAGNOSIS A. Distal esophagus, biopsy: Fragments of gastric mucosa with mild chronic inflammation. Intestinal metaplasia (goblet cell metaplasia) not identified. See comment. B. Gastric body, biopsy: Mild gastritis. See microscopic description and comment. SJ:garret 08/11/2021 COMMENT A. Alcian blue/PAS stain with matched control is used in the evaluation of the specimen. B. The results of immunohistochemistry for Helicobacter pylori will be reported separately ([id number]). MICROSCOPIC DESCRIPTION Slides are reviewed. GROSS DESCRIPTION A - Received in fixative is one container labeled with the patient's name and designated distal esophagus biopsy. The specimen consists of two irregular fragments of light segura soft tissue that in aggregate measure 0.6 x 0.3 x 0.1 cm. The specimen is totally submitted in one cassette. B - Received in fixative is one container labeled with the patient's name and designated gastric body biopsy. The specimen consists of multiple irregular fragments of light segura soft tissue that in aggregate measure 1.5 x 0.2 x 0.1 cm. The specimen is totally submitted in one cassette. / MARCUS:garret 08/10/21 TC:3 CPT: 86934 x2, 50785
[2021-08-10] MEDS: Lactated Ringers 1,000 ML 100 ML IV (07:22)
--- NOTE | 2021-08-10 08:25 | HP.PCM_ITS ---
HPI - General HPI Narrative HPI Details: LUCIANO LOCO, is a 55 F who presents to the office today for who presents to the office today for the evaluation of esophageal dysphagia. She has a history of a hiatal hernia resulting in a Schatzki's ring. She has undergone esophageal dilation 2 times. She also has a history of CAD status post PTCA with stents. She is not on Plavix or Brilinta. She does take a baby aspirin. She has no history of obstructive sleep apnea. She has no problems with anesthesia. She is mostly having her esophageal dysphagia with solids and pills. She has no esophageal dysphagia with liquids. She has no cough. She has no recent illnesses. She does take omeprazole 20 mg a day. She does not have any side effects from the medicine. She does on occasion have breakthrough heartburn. She denies any cough. She denies any abdominal pain. ROS Const Constitutional: No anorexia, fatigue, fever(s), weight change or sleep problems Eyes Eyes: No change in vision ENT ENT: No abnormal hearing, difficulty swallowing, mouth lesions, tongue swelling or throat swelling Resp Respiratory: No cough or shortness of breath Cardio Cardiology: No chest pain at rest, chest pain with exertion, shortness of breath or dyspnea on exertion Gastro GI: No difficulty swallowing Genitourinary-Female: No difficulty urinating or burning urination Musc Musculoskeletal: No joint pain, joint swelling, muscle weakness or decreased muscle mass Skin Skin: No hair loss in leg, yellowing of the eye, itchy eyes, rash, skin ulcer or skin swelling Neuro Neurology: No abnormal hearing, abnormal movements, confusion, unsteady gait/balance or memory loss Psych Psychiatric: No anxiety, No confusion and No memory loss Endo Endocrine: No fatigue or weight change Aller/Imm Allergy/Immunologic: No itchy eyes, throat swelling or tongue swelling Arsen/Lymp Hematologic/Lymphatic: No easy bleeding, easy bruising or enlarged lymph nodes Exam Const General: cooperative and comfortable Nutritional Appearance: average body habitus and well nourished HENND Head: normal to inspection Ears: hearing grossly normal bilaterally Nose: external nose normal Face and sinus: normal facial exam Mouth: oral mucosae normal Throat: posterior oropharynx normal Eyes General: appearance normal, both eyes and all related structures Neck Neck: normal visual inspection Chest Chest palpation & inspection: normal inspection of the chest and normal palpation of entire chest wall Resp Effort & Inspection: normal respiratory effort Auscultation: Bilateral: Clear to Auscultation Cardio Palpation: normal PMI Rate: regular rate Rhythm: regular rhythm GI Inspection: normal to inspection Auscultation: normal bowel sounds Percussion: normal to percussion Palpation: no hepatosplenomegaly Skin General: no rashes or lesions noted Neuro General: patient alert Extrem General: normal to inspection Psych Affect: normal affect Quality Reporting Tobacco Screening (CMS 138) Smoking Status: Never smoker Assessment and Plan Assessment and Plan (1) GERD (gastroesophageal reflux disease): Status: Acute Plan - Dr. Lr Friend, DO: Will not make any changes in her medications at this time. (2) Hiatal hernia: Status: Acute Plan - Dr. Lr Friend, DO: She will go endoscopic evaluation of her hiatal hernia. Regarding the size, depth and and if it is contributing to her esophageal dysphagia. (3) Dysphagia: Status: Acute Plan - Dr. Lr Friend, DO: She will undergo EGD with evaluation of her hiatal hernia and possible esophageal dilation. She was explained alternatives, risk, benefits including not withstanding bleeding, infection, sepsis, perforation, need for emergent surgery . She will have an ASA of 3. This is an updated H&P from when the patient was seen in office. Nothing has changed says that she was seen in the office. [facility] Medical History (Updated 08/05/21 @ 12:24 by Oneida Johnson) Actinic keratosis Asthma Cardiology follow-up encounter Chronic neck pain Chronic thoracic back pain COPD (chronic obstructive pulmonary disease) Difficulty chewing High cholesterol History of stress test Hypertension Intertrigo Macromastia Non-smoker Shoulder pain Status post placement of bone anchored hearing aid (BAHA) Unspecified open wound of right cheek and temporomandibular area, sequela Wears glasses Home Medications albuterol sulfate 2 puff INHALATION Q6H PRN PRN 01/01/15 [History Last Taken 08/26/20] metoprolol succinate 25 mg tablet,extended release 24 hr 25 mg PO DAILY 07/24/20 [History Last Taken 08/09/21] aspirin 81 mg PO DAILY 08/05/21 [History Last Taken 08/09/21] Allergy/AdvReac Type Severity Reaction Status Date / Time bee venom protein (honey bee) Allergy Intermediate Edema Verified 08/05/21 10:36 mushroom Allergy Intermediate Edema Verified 08/05/21 10:36 cat dander AdvReac Intermediate Itching Verified 08/05/21 10:36 and sneezing Family History Other Asthma Family history of skin cancer Surgical History (Updated 08/05/21 @ 12:24 by Oneida Johnson) History of bunionectomy History of cardiac catheterization History of coronary artery stent placement History of excision of lesion Hx of hysterectomy Hx of nasal septoplasty Hx of plastic surgery Hx of tonsillectomy S/P bilateral breast reduction Social History (Updated 09/07/20 @ 19:07 by Sneha Begum [employer]HE[employer]ICIAN [employer]GER [employer], [employer]HE[employer]IAN [employer]GER [employer]) Smoking Status: Never smoker alcohol intake: never substance use type: does not use additional social history: DOES NOT USE ASPIRIN DOES NOT USE IBUPROFEN Vital Signs Vital Signs Vital Signs: 08/10/21 07:24 08/10/21 07:26 Temperature 97.4 F L Temperature Source Temporal Pulse Rate 65 Respiratory Rate 20 H Respiratory Pattern Normal Blood Pressure 155/77 H Blood Pressure Mean 103 Blood Pressure Source Monitor Blood Pressure Position Semi-Fowlers Blood Pressure Location Left Arm Pulse Ox 97 Oxygen Delivery Method Room Air Weight Weight: 154 lb 15.759 oz Body Mass Index (BMI) 28.3
--- NOTE | 2021-08-10 08:30 | IMM_PTH ---
PATIENT: LUCIANO LOCO LOC: [facility] U#:[id number] AGE/SX: 55/F ROOM: RE08/10/[address]: Dr. Be Chapman DO : 1965 BED: DIS: 08/10/2021 SPEC #: [id number] RECD: 08/10/21 14:38 STATUS: VERÓNICA RESonia #: [id number] JESSICA: 08/10/21 08:[address]: Be Chapman DEPT: IMMUNOHISTOCHEMISTRY RECD BY: Nuria Minor ENTERED: 08/10/21 14:39 SP TYPE: IMMUNO OTHR DR: Dr. Nayely Villalobos DO Tissues: B - Stomach, NOS Procedures: H Pylori (initial) PHYSICIAN & INSTITUTION [place] [id number] SPECIMEN INFORMATION: Tissue Source: B ? Gastric body biopsy Clinical Info: GERD, hiatal hernia, dysphagia Specimen Number: [id number] CPT code: 01771 METHODOLOGY: Deparaffinized sections of prefer/formalin-fixed tissue or PAP/DQ stained slides are incubated with monoclonal/polyclonal antibodies/oligonucleotide probes. Localization is made via biotin free immunoperoxidase method. Appropriate controls are performed and reacted as expected. Results on target cell population are indicated in the following table: RESULTS: ANTIBODY / CLONE RESULT Block B H Pylori (polyclonal) negative These tests were developed and their performance characteristics determined by [facility]. They may not have been cleared or approved by the U.S. Food and Drug Administration. The FDA has determined that such clearance or approval is not necessary. INTERPRETATION: B. Gastric body, biopsy: Negative for Helicobacter pylori organisms. SJ:garret 08/11/2021
--- NOTE | 2021-08-10 08:54 | OP.EGD_ITS ---
Patient Name: Jazlyn Hernandez Procedure Date: 08/10/2021 8:26 AM Date of : 1965 Age: 55 Procedure: Upper GI endoscopy Indications: Dysphagia Providers: Be Chapman DO Referring MD: Be Chapman DO Medicines: Monitored Anesthesia Care Patient Profile: This is a 55 year old female. Refer to note in patient chart for documentation of history and physical. Patient has symptoms. The symptoms first began May. She is status post EGD for dilation within the past three years. Complications: No immediate complications. Procedure: Pre-Anesthesia Assessment: - Prior to the procedure, a History and Physical was performed, and patient medications and allergies were reviewed. The patient is competent. The risks and benefits of the procedure and the sedation options and risks were discussed with the patient. All questions were answered and informed consent was obtained. Patient identification and proposed procedure were verified by the physician in the pre-procedure area. Mental Status Examination: alert and oriented. Airway Examination: normal oropharyngeal airway and neck mobility. Respiratory Examination: clear to auscultation. CV Examination: normal. Prophylactic Antibiotics: The patient does not require prophylactic antibiotics. Prior Anticoagulants: The patient has taken no previous anticoagulant or antiplatelet agents. ASA Grade Assessment: II - A patient with mild systemic disease. After reviewing the risks and benefits, the patient was deemed in satisfactory condition to undergo the procedure. The anesthesia plan was to use moderate sedation / analgesia (conscious sedation). Immediately prior to administration of medications, the patient was re-assessed for adequacy to receive sedatives. The heart rate, respiratory rate, oxygen saturations, blood pressure, adequacy of pulmonary ventilation, and response to care were monitored throughout the procedure. The physical status of the patient was re-assessed after the procedure. After obtaining informed consent, the endoscope was passed under direct vision. Throughout the procedure, the patient's blood pressure, pulse, and oxygen saturations were monitored continuously. The Endoscope was introduced through the mouth, and advanced to the second part of duodenum. The upper GI endoscopy was accomplished without difficulty. The patient tolerated the procedure well. Moderate Sedation: Moderate (conscious) sedation was administered by the endoscopy nurse and supervised by the endoscopist. The patient's oxygen saturation, heart rate, blood pressure and response to care were monitored. Scope In: 8:37:15 AM Scope Out: 8:46:56 AM Total Procedure Duration Time 0 hours 9 minutes 41 seconds Findings: LA Grade B (one or more mucosal breaks greater than 5 mm, not extending between the tops of two mucosal folds) esophagitis was found. Biopsies were taken with a cold forceps for histology. Verification of patient identification for the specimen was done. Estimated blood loss was minimal. One benign-appearing, intrinsic stenosis was found 39 cm from the incisors. This stenosis was moderately severe and. The stenosis was traversed after dilation. The scope was withdrawn. Dilation was performed with a Sandoval dilator with mild resistance at 38 Fr. Segmental moderate inflammation characterized by erythema was found in the gastric body. Biopsies were taken with a cold forceps for histology. Verification of patient identification for the specimen was done. Estimated blood loss was minimal. The second portion of the duodenum was normal. Impression: - LA Grade B reflux esophagitis. Biopsied. - Benign-appearing esophageal stenosis. Dilated. - Chronic gastritis. Biopsied. - Normal second portion of the duodenum. - LA Grade B reflux esophagitis. Biopsied. - Benign-appearing esophageal stenosis. Dilated. - Chronic gastritis. Biopsied. - Normal second portion of the duodenum. [All Maneuvers]. Recommendation: - Discharge patient to home. - Resume previous diet. - Continue present medications. - Await pathology results. - Repeat upper endoscopy in 1 year for surveillance. - Return to GI office in 2 weeks. Procedure Code(s): --- Professional --- 61447, Esophagogastroduodenoscopy, flexible, transoral; with biopsy, single or multiple 74613, Dilation of esophagus, by unguided sound or bougie, single or multiple passes CPT copyright 2017 [employer]. All rights reserved. The codes documented in this report are preliminary and upon mash tub cooker review may be revised to meet current compliance requirements. Be Chapman DO 08/10/2021 8:54:11 AM This report has been signed electronically. Number of Addenda: 1 Note Initiated On: 08/10/2021 8:26 AM Addendum Number: 1 Addendum Date: 07/15/2022 4:04:52 PM MAC was used instead of moderate sedation for this patient. Be Chapman DO 07/15/2022 4:04:57 PM This report has been signed electronically.
--- NOTE | 2021-08-10 08:54 | OP.CCLET_ITS ---
07/15/2022 Nayely Villalobos Re : Upper GI endoscopy procedure for Jazlyn Hernandez Dear Wilfredo This procedure was performed on Tuesday, August 10, 2021. My impressions and recommendations are as follows: Impressions : - LA Grade B reflux esophagitis. Biopsied. - Benign-appearing esophageal stenosis. Dilated. - Chronic gastritis. Biopsied. - Normal second portion of the duodenum. - LA Grade B reflux esophagitis. Biopsied. - Benign-appearing esophageal stenosis. Dilated. - Chronic gastritis. Biopsied. - Normal second portion of the duodenum. [All Maneuvers]. Recommendations : - Discharge patient to home. - Resume previous diet. - Continue present medications. - Await pathology results. - Repeat upper endoscopy in 1 year for surveillance. - Return to GI office in 2 weeks. My findings are described in the full procedure note, which is enclosed. If I can be of further assistance, please feel free to contact me at . Sincerely, Be Chapman, 08/10/2021 8:54:11 AM This report has been signed electronically.
== END 2021-08-10 09:45 ==
LOC: EN 06:53 → AC 06:53
PROVIDERS: Referring Provider Internal Medicine Gastroenterology; Visit Provider Internal Medicine Gastroenterology
PROC: 0DJ08ZZ Inspection of Upper Intestinal Tract, Via Natural or Artificial Opening Endoscopic (ICD-10-PCS; CPT 43235; principal; 2021-08-10 08:25)
DX: K29.50 Unspecified chronic gastritis without bleeding (principal); K21.00 Gastro-esophageal reflux disease with esophagitis, without bleeding; K22.2 Esophageal obstruction; K44.9 Diaphragmatic hernia without obstruction or gangrene; I10 Essential (primary) hypertension; J44.9 Chronic obstructive pulmonary disease, unspecified; I25.10 Atherosclerotic heart disease of native coronary artery without angina pectoris; E78.00 Pure hypercholesterolemia, unspecified; G89.29 Other chronic pain; Z95.5 Presence of coronary angioplasty implant and graft; Z79.82 Long term (current) use of aspirin; Z79.899 Other long term (current) drug therapy
CPT/HCPCS: 43239; 43450; 87426; 88305; 88313; 88342; C9803; J7120; C1769; J2405

== ENCOUNTER 2022-06-24 08:27 | Day surgery (SDC) | payer MEDICARE, SELFPAY ==
[2022-06-24] VITALS (8 sets, daily range): BP systolic 130–161; BP diastolic 68–96; PULSE 55–68; RESP 16; TEMP 36–36.5; O2SAT 92–98; BMI 28.6
[2022-06-24] MEDS: Lactated Ringers 1,000 ML 15 ML IV ×2 (08:47→10:45)
[2022-06-24] MEDS: Cefazolin 2 GM in 0.9% Normal Saline 100 ML IV (10:48)
[2022-06-24] MEDS: Bupivacaine 0.25% 30 ML Vial (11:30)
--- NOTE | 2022-06-24 11:56 | DCINST_ITS ---
Discharge Instructions Follow Up Care Test Results: Test results from this visit will be discussed in further detail at your follow- up appointment, if applicable. Discharge Plan Admission Attending Provider: Kendell Aguiar Primary Care Provider: Nayely Villalobos Instructions Additional Instructions / Restrictions: Follow preprinted instructions from your surgeons office Discharge Orders/Prescriptions Prescriptions: New oxycodone 5 mg tablet 5 mg PO Q6H PRN (Reason: pain) 7 Days Qty: 28 0RF Rx Instructions: 1 to 2 tabs every 6 hours as needed pain Continued metoprolol succinate 25 mg tablet extended release 24 hr 25 mg PO DAILY albuterol sulfate 1 INHALER inhaler 2 puff INHALATION Q6H PRN PRN (Reason: Wheezing) Label Comments: ASTHMA aspirin 81 mg Tablet,Chewable 81 mg PO DAILY Label Comments: STOP ON HER OWN PRE-OP Referrals / Follow Up: Nayely Villalobos DO [Primary Care Provider] - Kendell Aguiar DO [Med Staff - Active Staff] - Within 2 Weeks Disposition Disposition (needs filled in before D/C Order can be placed): Home, Self Care
--- NOTE | 2022-06-24 11:56 | PCM.OPRPT ---
Report of Operation Date of Procedure: 06/24/22 Description of Surgical Findings:: Preoperative diagnosis: Left knee pain with suspected internal derangement Postoperative diagnosis: 1. Left knee degenerative medial meniscus tear 2. Left knee degenerative lateral meniscus tear 3. Hypertrophic fat pad with impingement left knee 4. 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 Primary Surgeon: Kendell Aguiar DO Reproduction Order Processor: None Anesthesia: General endotracheal Production Mechanic Tin Cans: Florentino Huerta CRNA Complications: None apparent Specimen: None Estimated blood loss: 10 cc IV fluids: Per anesthesia record Urine output: None Packing/drains: None Implants: None Intraoperative findings: 1. Left knee degenerative medial meniscus tear 2. Left knee degenerative lateral meniscus tear 3. Hypertrophic fat pad with impingement left knee 4. 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 She failed nonoperative management with NSAIDs, Tylenol, activity modification, bracing, physical therapy, and intra-articular corticosteroid injections. MRI was ordered of her left knee was unable to be completed due to a cochlear implant. I discussed possible diagnostic arthroscopy of the left knee given her failure of nonoperative measures. Her x-rays demonstrated minimal degenerative changes. We discussed that her exam was consistent with a medial meniscus tear and we would plan to proceed with partial medial meniscectomy versus repair depending on the intraoperative findings. The risk, benefits, alternatives to the procedure reviewed with the patient at length. She agreed to proceed. Risks included but were not limited to bleeding, flexion, loss of life or limb, need for additional surgery, persistent pain, nonhealing wounds, risk of anesthesia, postoperative stiffness. Patient expressed understanding and wished proceed. Informed consent obtained in the out patient setting. Description of procedure: Patient was identified the day of surgery by name, medical record number, date of in the preoperative holding area. The operative extremity was marked. All questions answered to the patient satisfaction. Informed site was confirmed. At time of her procedure, patient brought the operative suite positioned supine a standard operating table. General seizure was induced and endotracheal tube placed. All bony prominences were well-padded. A well-padded pneumatic tourniquet was applied to the left upper thigh. We then placed the left lower extremity in arthroscopic leg garcia. A well leg garcia was placed under the patient's nonoperative thigh. The foot of the bed was dropped 90 degrees. We then prepped and draped the left lower extremity in a normal, sterile orthopedic fashion. We performed a timeout with all parties in attendance in agreement with the side, site, operation to be performed. No concerns voiced elected proceed with surgery. 2 g Ancef was administered prior to incision by anesthesia staff. I first exsanguinated left lower extremity and Esmarch bandage. Tourniquet was inflated to 250 mmHg where it remained up for 30 minutes. Esmarch was removed. Standard anterolateral arthroscopic portal was established with 11 blade scalpel. Blunt tipped trocar and arthroscopic cannula was inserted into the patellofemoral joint. Trocar was exchanged for the arthroscope. Diagnostic arthroscopy was commenced. There were degenerative changes noted with hypertrophic fat pad in the patellofemoral joint. Grade III chondromalacia was noted on the patella. I turned my attention medially and laterally to the gutters. Gutters were unremarkable. I inserted the medial compartment with a valgus stress to the knee. I established an anterior medial portal under direct visualization with a spinal needle and subsequent 11 blade scalpel. Arthroscopic shaver was used to debride the fat pad that appeared to be impinging into the medial joint space. I then examined the medial meniscus and chondral surfaces. There was degenerative tearing of the medial meniscus noted which was taken to a stable rim with combination of meniscal biters and arthroscopic shaver. There is grade three 2 x 2 centimeter chondromalacia noted of the medial femoral condyle with unstable rim. The rim was debrided with a chondroplasty performed utilizing the arthroscopic shaver. I then turned my attention to the notch. Hypertrophic fat pad was debrided. ACL was probed and intact and functional. Lateral compartment was then entered after [id number] stress was applied to the knee. Lateral meniscal fraying was noted. This was debrided with a arthroscopic radial resector. The chondral surfaces appeared pristine. I then turned my attention to the anterior lateral fat pad which also appeared to be impinging into the joint space. This was debrided with a radial resector. I then turned my attention back to the patellofemoral joint. Fat pad was further debrided. No profound plica bands were encountered. No chondral flaps were found on the patella or trochlear groove. I then thoroughly lavaged the knee. Arthroscopic instruments were removed. I closed the portal sites with [id number] 4-0 nylon suture. Portal sites and knee capsule were anesthetized with 30 cc 0.25% plain bupivacaine. Sterile compression dressing was applied. Tourniquet was deflated. Patient was brought back in the supine position and out of the arthroscopic leg garcia. She was safely extubated in the operative suite. She was transferred to her gurney and subsequently to PACU in stable condition. Patient tolerated procedure well without apparent complication. Postoperative plan: Patient be discharged home today with weightbearing as tolerated to the operative lower extremity. Ice and elevation recommended. Aspirin 81 mg twice daily to start tomorrow for DVT prophylaxis. Prescription for oxycodone was sent to the pharmacy today. Follow-up in 2 weeks as previously scheduled for suture removal. Written instructions provided.
== END 2022-06-24 14:01 | disposition home or self-care (01) ==
LOC: SDC 08:28 → AC 08:29
PROVIDERS: Referring Provider Student in an Organized Health Care Education/Training Program; Visit Provider Student in an Organized Health Care Education/Training Program
PROC: (CPT 29870; principal; 2022-06-24 10:20)
DX: S83.282A Other tear of lateral meniscus, current injury, left knee, initial encounter (principal); J44.9 Chronic obstructive pulmonary disease, unspecified; M17.11 Unilateral primary osteoarthritis, right knee; I25.10 Atherosclerotic heart disease of native coronary artery without angina pectoris; I10 Essential (primary) hypertension; G47.30 Sleep apnea, unspecified; K21.9 Gastro-esophageal reflux disease without esophagitis; E78.00 Pure hypercholesterolemia, unspecified; Z79.899 Other long term (current) drug therapy; Z79.82 Long term (current) use of aspirin; Z95.5 Presence of coronary angioplasty implant and graft; S83.242A Other tear of medial meniscus, current injury, left knee, initial encounter; X58.XXXA Exposure to other specified factors, initial encounter; M25.862 Other specified joint disorders, left knee; M22.42 Chondromalacia patellae, left knee
CPT/HCPCS: 29880; 01400; J7120; J2405

== ENCOUNTER 2022-10-20 06:24 | Day surgery (SDC) | payer MEDICARE, SELFPAY ==
[2022-10-20] VITALS (7 sets, daily range): BP systolic 131–147; BP diastolic 83–95; PULSE 60–68; RESP 16–18; TEMP 36.2–36.9; O2SAT 96–98; BMI 28.6
--- NOTE | 2022-10-20 | ESO_PTH ---
PATIENT: LUCIANO LOCO LOC: [facility] U#:[id number] AGE/SX: 56/F ROOM: RE10/20/[address]: Dr. Be Chapman DO : 1965 BED: DIS: 10/20/2022 SPEC #: [id number] RECD: 10/20/22 09:39 STATUS: VERÓNICA PAGE #: [id number] JESSICA: 10/20/22 00:[address]: Be Chapman DEPT: SURGICAL PATHOLOGY RECD BY: Rad Loaiza ENTERED: 10/20/22 09:39 SP TYPE: ALFREDO LUX DR: Dr. Nayely Villalobos DO Tissues: Esophagus, NOS Procedures: Special Stain Group II Surgery Specimen Level IV Alcian Blue/PAS (control) HEADER OPERATION: EGD ([facility] [place]) with dilation, biopsy PRE-OP DIAGNOSIS: Dysphagia TISSUE SUBMITTED: Distal esophagus biopsy MICROSCOPIC DIAGNOSIS Distal esophagus, biopsy: Fragments of gastroesophageal mucosa with chronic inflammation. Intestinal metaplasia (goblet cell metaplasia) not identified. See comment. MARCUS:garret 10/21/2022 COMMENT Alcian blue/PAS stain with matched control is used in the evaluation of the specimen. MICROSCOPIC DESCRIPTION Slides are reviewed. GROSS DESCRIPTION Received in fixative is one container labeled with the patient's name and designated distal esophagus biopsy. The specimen consists of multiple irregular fragments of light segura soft tissue that in aggregate measure 1.5 x 0.5 x 0.1 cm. The specimen is totally submitted in one cassette. / MARCUS:garret 10/20/2022 TC:3 CPT: 96751, 88604
--- NOTE | 2022-10-20 06:30 | PCM.HP.BLA ---
History and Physical Date of Admission: 10/20/22 LUCIANO LOCO, is a 56 F who presents to the office today for recurrence of difficulty swallowing.? She reports having trouble swallowing meat and pills.? She has to swallow multiple times followed by liquid to get meat and pills to pass.? She recalls dysphagia recurring soon after EGD last year.? EGD on 08/10/21 showed LA grade B esophagitis, esophageal stenosis which was dilated to 38 [place] with resistance, negative Staples's.? Her last office visit was one year ago, plan was to complete 8 wks of omeprazole 40 mg twice daily then decrease to once daily dosing, with the possibility of adding [id number]. She has discontinued PPI therapy, unclear when that occurred; she states cardiology took her off PPI.? She is not interested in an H2 terry.? She denies heartburn, acid reflux, chest pain, abdominal pain, nausea, vomiting.? No ED visits for food bolus stuck in esophagus.? She has asthma, she states her asthma is controlled as long as she does not eat meat, she equates meat sticking in the esophagus with airway closing with asthma. ? ROS Const Constitutional: No fatigue ENT ENT: Positive for difficulty swallowing Gastro GI: Positive for difficulty swallowing; No abdominal pain, belching, bloating, change in bowel habits, change in stool character, coffee ground emesis, constipation, cramping, diarrhea, heartburn, feeling full early, excessive flatus, incontinent of stools, Vomiting blood/hematemesis, Blood in stool, loose stools, Black,tarry stools, nausea/dyspepsia, pain with swallowing, vomiting or other Musc Musculoskeletal: No joint pain Skin Skin: No yellowing of the eye or itchy eyes Psych Psychiatric: No anxiety and No depression Endo Endocrine: No fatigue Aller/Imm Allergy/Immunologic: No itchy eyes Arsen/Lymp Hematologic/Lymphatic: No easy bleeding or easy bruising Exam Const General: cooperative and comfortable Nutritional Appearance: overweight Orientation: alert, awake and oriented x3 Quality Reporting Tobacco Screening ([facility] 138) Smoking Status: Never smoker Assessment and Plan Assessment and Plan (1) Dysphagia: ?Status:?Acute ?Plan: Recurrence of dysphagia. Hx of hiatal hernia, GERD, esophagitis, esophageal stentosis. We will schedule her for EGD. She reports cardiology took her off PPI therapy. She declines rx for famotidine today. I have examined the patient and the H&P has been reviewed. There are no clinical changes since date of exam.
--- NOTE | 2022-10-20 07:52 | OP.EGD_ITS ---
Patient Name: Jazlyn Hernandez Procedure Date: 10/20/2022 7:29 AM Date of : 1965 Age: 56 Procedure: Upper GI endoscopy Indications: Dysphagia Providers: Be Chapman DO Referring MD: Nayely Villalobos Medicines: Monitored Anesthesia Care Patient Profile: This is a 56 year old female. Refer to note in patient chart for documentation of history and physical. Patient has symptoms of chronic dysphagia. Complications: No immediate complications. Procedure: Pre-Anesthesia Assessment: - Prior to the procedure, a History and Physical was performed, and patient medications and allergies were reviewed. The risks and benefits of the procedure and the sedation options and risks were discussed with the patient. All questions were answered and informed consent was obtained. Patient identification and proposed procedure were verified by the physician in the pre-procedure area. Mental Status Examination: alert and oriented. Airway Examination: normal oropharyngeal airway and neck mobility. Respiratory Examination: clear to auscultation. CV Examination: normal. Prophylactic Antibiotics: The patient does not require prophylactic antibiotics. Prior Anticoagulants: The patient has taken no previous anticoagulant or antiplatelet agents. ASA Grade Assessment: II - A patient with mild systemic disease. After reviewing the risks and benefits, the patient was deemed in satisfactory condition to undergo the procedure. The anesthesia plan was to use monitored anesthesia care (MAC). Immediately prior to administration of medications, the patient was re-assessed for adequacy to receive sedatives. The heart rate, respiratory rate, oxygen saturations, blood pressure, adequacy of pulmonary ventilation, and response to care were monitored throughout the procedure. The physical status of the patient was re-assessed after the procedure. After obtaining informed consent, the endoscope was passed under direct vision. Throughout the procedure, the patient's blood pressure, pulse, and oxygen saturations were monitored continuously. The gastroscope was introduced through the mouth, and advanced to the second part of duodenum. The upper GI endoscopy was accomplished without difficulty. The patient tolerated the procedure well. Scope In: 7:39:25 AM Scope Out: 7:45:30 AM Total Procedure Duration Time 0 hours 6 minutes 5 seconds Findings: The distal esophagus was grossly tortuous. The Z-line was irregular and was found 37 cm from the incisors. Biopsies were taken with a cold forceps for histology. Verification of patient identification for the specimen was done. Estimated blood loss was minimal. No gross lesions were noted in the entire examined stomach. A small hiatal hernia was present. No gross lesions were noted in the first portion of the duodenum. One benign-appearing, intrinsic stenosis was found 34 to 36 cm from the incisors. This stenosis was moderately severe and. The stenosis was traversed. A guidewire was placed and the scope was withdrawn. Dilation was performed with a Savary dilator with no resistance at 60 Fr. The dilation site was examined and showed moderate improvement in luminal narrowing. Estimated blood loss was minimal. Impression: - Tortuous esophagus. - Z-line irregular, 37 cm from the incisors. Biopsied. - No gross lesions in the stomach. - Small hiatal hernia. - No gross lesions in the first portion of the duodenum. Recommendation: - Discharge patient to home. - Resume previous diet. - Continue present medications. - Await pathology results. Procedure Code(s): --- Professional --- 11823, Esophagogastroduodenoscopy, flexible, transoral; with insertion of guide wire followed by passage of dilator(s) through esophagus over guide wire 99312, 59,51, Esophagogastroduodenoscopy, flexible, transoral; with biopsy, single or multiple CPT copyright 2017 [employer]. All rights reserved. The codes documented in this report are preliminary and upon fire officer review may be revised to meet current compliance requirements. Be Chapman DO 10/20/2022 7:52:11 AM This report has been signed electronically. Number of Addenda: 0 Note Initiated On: 10/20/2022 7:29 AM
--- NOTE | 2022-10-20 07:52 | OP.CCLET_ITS ---
10/20/2022 Nayely Villalobos Re : Upper GI endoscopy procedure for Jazlyn Hernandez Dear Wilfredo This procedure was performed on Thursday, October 20, 2022. My impressions and recommendations are as follows: Impressions : - Tortuous esophagus. - Z-line irregular, 37 cm from the incisors. Biopsied. - No gross lesions in the stomach. - Small hiatal hernia. - No gross lesions in the first portion of the duodenum. Recommendations : - Discharge patient to home. - Resume previous diet. - Continue present medications. - Await pathology results. My findings are described in the full procedure note, which is enclosed. If I can be of further assistance, please feel free to contact me at . Sincerely, Be Chapman, 10/20/2022 7:52:11 AM This report has been signed electronically.
== END 2022-10-20 08:58 | disposition home or self-care (01) ==
LOC: EN 06:25 → AC 06:26
PROVIDERS: Visit Provider Internal Medicine Gastroenterology
PROC: 0DJ08ZZ Inspection of Upper Intestinal Tract, Via Natural or Artificial Opening Endoscopic (ICD-10-PCS; CPT 43235; principal; 2022-10-20 07:40)
DX: K21.00 Gastro-esophageal reflux disease with esophagitis, without bleeding (principal); J44.9 Chronic obstructive pulmonary disease, unspecified; I10 Essential (primary) hypertension; K44.9 Diaphragmatic hernia without obstruction or gangrene; K22.2 Esophageal obstruction; G89.29 Other chronic pain; Z95.5 Presence of coronary angioplasty implant and graft; Z79.82 Long term (current) use of aspirin; Z79.899 Other long term (current) drug therapy
CPT/HCPCS: 43248; 43239; 88305; 88313; J7120; C1769; J2405

== ENCOUNTER 2023-06-06 08:20 | Day surgery (SDC) | payer MEDICARE, SELFPAY ==
[2023-06-06 08:58] VITALS: BP 109/69; PULSE 65; RESP 16; TEMP 36.3; O2SAT 95; BMI 28.8
[2023-06-06] MEDS: Lactated Ringers 1,000 ML 15 ML IV (09:05)
--- NOTE | 2023-06-06 10:00 | ESO_PTH ---
PATIENT: LUCIANO LOCO LOC: JOHN U#:[id number] AGE/SX: 57/F ROOM: RE06/06/[address]: Dr. Be Chapman DO : 1965 BED: DIS: 06/06/2023 SPEC #: [id number] RECD: 06/06/23 11:21 STATUS: VERÓNICA PAGE #: [id number] JESSICA: 06/06/23 10:[address]: Be Chapman DEPT: SURGICAL PATHOLOGY RECD BY: Ovi Lang ENTERED: 06/06/23 13:21 SP TYPE: ALFREDO LUX DR: DO Keara Echeverria NP-Geeta Tissues: Esophagus, NOS Procedures: Surgery Specimen Level IV HEADER OPERATION[place] [place] with dilation, biopsy PRE-OP DIAGNOSIS: Dysphagia TISSUE SUBMITTED: Distal esophagus biopsy MICROSCOPIC DIAGNOSIS Distal esophagus, biopsy: Fragments of squamous mucosa with chronic inflammation and changes consistent with gastroesophageal reflux disease. See comment. MARCUS:garret 06/07/2023 COMMENT Focal mild increased number of eosinophils (about 15 per high power field) are noted suggestive of eosinophilic esophagitis. Correlation with clinical, endoscopic findings and appropriate follow-up are necessary. MICROSCOPIC DESCRIPTION Slides are reviewed. GROSS DESCRIPTION Received in fixative is one container labeled with the patient's name and designated distal esophagus. The specimen consists of multiple irregular fragments of light segura soft tissue that in aggregate measure 1.0 x 0.5 x 0.1 cm. The specimen is totally submitted in one cassette. / MARCUS:garret 06/06/2023 TC:3 CPT: 08588
--- NOTE | 2023-06-06 10:07 | PCM.HP.BLA ---
History and Physical Date of Admission: 06/06/23 56 F who presents to the office today for recurrence of difficulty swallowing.? She reports having trouble swallowing meat and pills.? She has to swallow multiple times followed by liquid to get meat and pills to pass.? She recalls dysphagia recurring soon after EGD last year.? EGD on 08/10/21 showed LA grade B esophagitis, esophageal stenosis which was dilated to 38 Croatian with resistance, negative Staples's.? Her last office visit was one year ago, plan was to complete 8 wks of omeprazole 40 mg twice daily then decrease to once daily dosing, with the possibility of adding [id number]. She has discontinued PPI therapy, unclear when that occurred; she states cardiology took her off PPI.? She is not interested in an H2 terry.? She denies heartburn, acid reflux, chest pain, abdominal pain, nausea, vomiting.? No ED visits for food bolus stuck in esophagus.? She has asthma, she states her asthma is controlled as long as she does not eat meat, she equates meat sticking in the esophagus with airway closing with asthma. ? ROS Const Constitutional: No fatigue ENT ENT: Positive for difficulty swallowing Gastro GI: Positive for difficulty swallowing; No abdominal pain, belching, bloating, change in bowel habits, change in stool character, coffee ground emesis, constipation, cramping, diarrhea, heartburn, feeling full early, excessive flatus, incontinent of stools, Vomiting blood/hematemesis, Blood in stool, loose stools, Black,tarry stools, nausea/dyspepsia, pain with swallowing, vomiting or other Musc Musculoskeletal: No joint pain Skin Skin: No yellowing of the eye or itchy eyes Psych Psychiatric: No anxiety and No depression Endo Endocrine: No fatigue Aller/Imm Allergy/Immunologic: No itchy eyes Arsen/Lymp Hematologic/Lymphatic: No easy bleeding or easy bruising Exam Const General: cooperative and comfortable Nutritional Appearance: overweight Orientation: alert, awake and oriented x3 Quality Reporting Tobacco Screening ([facility] 138) Smoking Status: Never smoker Assessment and Plan Assessment and Plan (1) Dysphagia: ?Status:?Acute ?Plan: Recurrence of dysphagia. Hx of hiatal hernia, GERD, esophagitis, esophageal stentosis. We will schedule her for EGD. She reports cardiology took her off PPI therapy. She declines rx for famotidine today. I have examined the patient and the H&P has been reviewed. There are no clinical changes since date of exam. I have examined the patient and the H&P has been reviewed. There are no clinical changes since date of exam.
[2023-06-06 10:26] VITALS: BP 109/69; BP 93/65; PULSE 80; RESP 16; TEMP 36.8; O2SAT 97
--- NOTE | 2023-06-06 10:28 | OP.CCLET_ITS ---
06/06/2023 Nayely Villalobos Re : Upper GI endoscopy procedure for Jazlyn Hernandez Dear Wilfredo This procedure was performed on Tuesday, June 06, 2023. My impressions and recommendations are as follows: Impressions : - LA Grade A reflux esophagitis. Biopsied. - Moderate Schatzki ring. Dilated. - Moderate Schatzki ring. Dilated. - Small hiatal hernia. - Normal duodenal bulb. Recommendations : - Discharge patient to home. - Resume previous diet. - Continue present medications. - Await pathology results. My findings are described in the full procedure note, which is enclosed. If I can be of further assistance, please feel free to contact me at . Sincerely, Be Chapman, 06/06/2023 10:27:57 AM This report has been signed electronically.
--- NOTE | 2023-06-06 10:28 | OP.EGD_ITS ---
Patient Name: Jazlyn Hernandez Procedure Date: 06/06/2023 10:04 AM Date of : 1965 Age: 57 Procedure: Upper GI endoscopy Indications: Dysphagia Providers: Be Chapman DO Referring MD: Nayely Villalobos Medicines: Monitored Anesthesia Care Patient Profile: This is a 57 year old female. Refer to note in patient chart for documentation of history and physical. Patient has symptoms of chronic dysphagia and dysphagia with solids. Complications: No immediate complications. Procedure: Pre-Anesthesia Assessment: - Prior to the procedure, a History and Physical was performed, and patient medications and allergies were reviewed. The patient is competent. The risks and benefits of the procedure and the sedation options and risks were discussed with the patient. All questions were answered and informed consent was obtained. Patient identification and proposed procedure were verified by the physician. Mental Status Examination: normal. Respiratory Examination: clear to auscultation. CV Examination: normal. Prophylactic Antibiotics: The patient does not require prophylactic antibiotics. Prior Anticoagulants: The patient has taken no previous anticoagulant or antiplatelet agents. After reviewing the risks and benefits, the patient was deemed in satisfactory condition to undergo the procedure. The anesthesia plan was to use minimal sedation / analgesia (anxiolysis). Immediately prior to administration of medications, the patient was re-assessed for adequacy to receive sedatives. The heart rate, respiratory rate, oxygen saturations, blood pressure, adequacy of pulmonary ventilation, and response to care were monitored throughout the procedure. The physical status of the patient was re-assessed after the procedure. After obtaining informed consent, the endoscope was passed under direct vision. Throughout the procedure, the patient's blood pressure, pulse, and oxygen saturations were monitored continuously. The gastroscope was introduced through the mouth, and advanced to the second part of duodenum. The upper GI endoscopy was accomplished without difficulty. The patient tolerated the procedure well. Scope In: Scope Out: 10:20:46 AM Findings: LA Grade A (one or more mucosal breaks less than 5 mm, not extending between tops of 2 mucosal folds) esophagitis with no bleeding was found 38 to 39 cm from the incisors. Biopsies were taken with a cold forceps for histology. Verification of patient identification for the specimen was done. Estimated blood loss was minimal. A moderate Schatzki ring was found in the upper third of the esophagus. A guidewire was placed and the scope was withdrawn. Dilation was performed with a Savary dilator with no resistance at 54 Fr. The dilation site was examined and showed moderate improvement in luminal narrowing. Estimated blood loss was minimal. A moderate Schatzki ring was found in the lower third of the esophagus. A guidewire was placed and the scope was withdrawn. Dilation was performed with a Savary dilator with no resistance at 54 Fr. The dilation site was examined and showed moderate improvement in luminal narrowing. Estimated blood loss: none. A small hiatal hernia was present. The exam of the stomach was otherwise normal. The duodenal bulb was normal. Impression: - LA Grade A reflux esophagitis. Biopsied. - Moderate Schatzki ring. Dilated. - Moderate Schatzki ring. Dilated. - Small hiatal hernia. - Normal duodenal bulb. Recommendation: - Discharge patient to home. - Resume previous diet. - Continue present medications. - Await pathology results. Procedure Code(s): --- Professional --- 90395, Esophagogastroduodenoscopy, flexible, transoral; with insertion of guide wire followed by passage of dilator(s) through esophagus over guide wire 92385, 59,51, Esophagogastroduodenoscopy, flexible, transoral; with biopsy, single or multiple CPT copyright 2017 [employer]. All rights reserved. The codes documented in this report are preliminary and upon outpatient coder review may be revised to meet current compliance requirements. Be Chapman DO 06/06/2023 10:27:57 AM This report has been signed electronically. Number of Addenda: 0 Note Initiated On: 06/06/2023 10:04 AM
[2023-06-06 10:30] VITALS: BP 109/69; BP 85/66; PULSE 78; RESP 16; O2SAT 99
[2023-06-06 10:35] VITALS: BP 109/69; BP 84/63; PULSE 81; RESP 16; O2SAT 98
[2023-06-06 10:40] VITALS: BP 109/69; BP 92/62; PULSE 82; RESP 16; TEMP 36.6; O2SAT 99
[2023-06-06 10:56] VITALS: BP 109/69
== END 2023-06-06 11:27 | disposition home or self-care (01) ==
LOC: EN 08:21 → AC 08:24
PROVIDERS: Visit Provider Internal Medicine Gastroenterology
PROC: 0DJ08ZZ Inspection of Upper Intestinal Tract, Via Natural or Artificial Opening Endoscopic (ICD-10-PCS; CPT 43235; principal; 2023-06-06 09:55)
DX: K44.9 Diaphragmatic hernia without obstruction or gangrene (principal); K21.00 Gastro-esophageal reflux disease with esophagitis, without bleeding; R13.10 Dysphagia, unspecified
CPT/HCPCS: 43239; 43248; 88305; J7120; C1769; J2405

== ENCOUNTER 2023-08-04 12:37 | Day surgery (SDC) | payer MEDICARE, SELFPAY ==
--- NOTE | 2023-07-26 08:14 | EKG12_ITS ---
Test Reason : PREOP Blood Pressure : / mmHG Vent. Rate : 054 BPM Atrial Rate : 054 BPM P-R Int : 116 ms QRS Dur : 088 ms QT Int : 432 ms P-R-T Axes : 055 047 053 degrees QTc Int : 409 ms Sinus bradycardia Otherwise normal ECG Confirmed by KWADWO ANGELA, TENA ([id number]), technical writer and editor RADHA GUTIERREZ ([id number]) on 07/28/2023 1:32:30 PM Referred By: Kendell Aguiar Confirmed By:TENA BURKETT MD
[2023-07-26 08:53] LABS: Absolute Lymphocyte Count 2.28 X10^3/uL (0.83-4.51); Absolute Neutrophil Count 3.4 X10^3/uL (2.0-7.7); Basophil# 0.06 X10^3/uL; Basophil% 0.9 % (0-1); Eosinophil# 0.58 X10^3/uL; Eosinophils% 8.3 % (0-5); Hematocrit 41.4 % (37-47); Hemoglobin 13.1 g/dL (12.0-15.0); Lymphocyte # 2.28 X10^3/ul (0.83-4.51); Lymphocyte % 32.4 % (19-41); Mean Corp Hgb Conc 31.6 g/dL (32-36); Mean Corpuscular Hgb 28.4 pg (27.0-32.0); Mean Corpuscular Volume 89.8 fL (81-99); Monocyte# 0.72 X10^3/uL; Monocyte% 10.2 % (0-10); NRBC Flagged by Analyzer 0 % (0-5); Neutrophil # 3.37 X10^3/uL (2.7-7.7); Neutrophil % 47.9 % (47-70); Platelet Count 318 K/mm3 (150-450); RBC Distribution Width CV 12.9 % (11.6-14.6); RBC Distribution Width SD 42.1 fl (35.1-43.9); Red Blood Count 4.61 M/mm3 (4.2-5.4)
[2023-07-26 09:25] LABS: Anion Gap 3 (5-15); BUN 6 mg/dL (7-18); BUN/Creat Ratio 6.7 RATIO (10-20); Calcium,Total 8.7 mg/dL (8.5-10.1); Chloride 108 mmol/L (98-107); EST Glomerular Filtration Rate 69 mL/min (>60); Est Glom Filt Rate - Afr Amer 83 mL/min (>60); Glucose 112 mg/dL (74-106); Potassium 3.4 mmol/L (3.5-5.1); Sodium Level 141 mmol/L (136-145)
[2023-08-04] MEDS: Lactated Ringers 1,000 ML 15 ML IV (13:24)
[2023-08-04 13:26] VITALS: BP 149/86; PULSE 56; RESP 18; TEMP 36.7; O2SAT 98; BMI 28.1
[2023-08-04] MEDS: Cefazolin 2 GM in 0.9% Normal Saline (100mL Bag) 100 ML IV (15:25)
[2023-08-04 16:17] VITALS: BP 112/78; BP 149/86; PULSE 59; RESP 16; TEMP 36.3; O2SAT 93
[2023-08-04] MEDS: Lidocaine 1% /Epi 1:100 (20ml) 20 ML Vial (16:17)
--- NOTE | 2023-08-04 16:17 | PCM.DC ---
Discharge Instructions Follow Up Care Test Results: Test results from this visit will be discussed in further detail at your follow-up appointment, if applicable. Discharge Plan Admission Attending Provider: Kendell Aguiar Primary Care Provider: Nayely Villalobos Consulting Providers: Keara Frey LAND SURVEYOR ASSISTANT Discharge Orders/Prescriptions Prescriptions: New hydrocodone-acetaminophen 5-325 mg tablet 1 tab PO Q6H PRN (Reason: pain) 3 Days Qty: 12 0RF Continued metoprolol succinate 25 mg tablet extended release 24 hr 25 mg PO DAILY albuterol sulfate 1 INHALER inhaler 2 puff INHALATION Q6H PRN PRN (Reason: Wheezing) Patient Comments: ASTHMA aspirin 81 mg Tablet,Chewable 81 mg PO DAILY Patient Comments: STOP ON HER OWN PRE-OP Referrals / Follow Up: Nayely Villalobos, [Primary Care Provider] - Disposition Disposition (needs filled in before D/C Order can be placed): Home, Self Care
[2023-08-04 16:20] VITALS: BP 109/78; BP 149/86; PULSE 58; RESP 16; O2SAT 93
[2023-08-04 16:25] VITALS: BP 111/76; BP 149/86; PULSE 57; RESP 16; O2SAT 93
[2023-08-04] MEDS: Ketorolac 30 MG/ML Syringe IV (16:28)
[2023-08-04 16:35] VITALS: BP 132/86; BP 149/86; PULSE 54; RESP 16; O2SAT 97
[2023-08-04 16:40] VITALS: BP 120/80; BP 149/86; PULSE 56; RESP 16; TEMP 37.1; O2SAT 93
--- NOTE | 2023-08-04 17:33 | PCM.OPRPT ---
Report of Operation Date of Procedure: 08/04/23 Description of Surgical Findings:: Preoperative diagnosis: Right carpal tunnel syndrome Postoperative diagnosis: Right carpal tunnel syndrome Procedure: Right open carpal tunnel release Primary Surgeon: Kendell Aguiar DO Anesthesia: MAC with Bradly block [employer] Department Manager: Florentino Huerta CRNA Complications: None apparent IV fluids: 500 cc Estimated blood loss: 5 cc Specimen: None Packing/drains: None Implants: None Urine output: None recorded Preoperative indications: This is a 57-year-old female seen in the outpatient setting for right hand pain and paresthesias. She was diagnosed carpal tunnel syndrome. She failed nighttime bracing and oral anti-inflammatories. I recommend surgical intervention in the form of right endoscopic carpal tunnel release with possible open release. The risks, benefits, alternatives of procedure were reviewed with patient at length and she agreed to proceed. Risks included but were not limited to bleeding, infection, loss of life or limb, nonhealing wounds, worsening of carpal tunnel syndrome, persistent paresthesias, persistent pain, stiffness, neurovascular injury, DVT or PE. She expressed understanding of these risks and wished to proceed with surgery. Description of procedure: Patient was identified the preoperative holding area by name, medical record number, and date of . The operative extremity was marked. All questions were answered to patient satisfaction. Informed consent was confirmed with the patient. At time of the procedure, patient brought the operative suite and positioned supine on a standard operating table and hand table was attached to the patient's operative side. Prior to prepping, a well-padded pneumatic tourniquet was applied to the operative forearm. Utilizing a dorsal hand vein, a Bradly block was administered by anesthesia staff in standard fashion. While assembling the endoscopic carpal tunnel device, it was noted a adapter for the light cord was absent. After approximately 20 minutes of searching for the adapter it was not identified. I discussed with the patient's significant other that we should proceed with open carpal tunnel release versus awaken the patient and return to the operative suite at a later time. He wished to proceed with open release. I then proceeded with standard carpal tunnel release. A standard longitudinal was made in line with the fourth ray proximal to Avendano's cardinal line and distal to the wrist crease. Full-thickness skin flaps were developed sharply down to level palmar fascia. Heiss retractor was placed. Palmar fascia was split in line with the incision. Heiss retractor was taken deeper. Transverse carpal ligament was identified and split in line with the incision along its ulnar border. Proximal and distal releases were completed. Identification of perivascular fat was noted distally. No aberrancies in the median nerve were noted. The wound was copiously irrigated with normal saline solution. Tourniquet was deflated. Hemostasis was achieved with bipolar cautery. Skin was reapproximated with interrupted horizontal mattress 4-0 nylon suture. A bulky dressing was applied. She tolerated procedure well without apparent complication. Patient was transferred back to same-day surgery in stable condition. Postoperative plan: Patient be discharged home today after meeting same-day surgery criteria. Patient will be weightbearing less than 3 pounds to the operative hand. She will follow-up in 10 to 14 days days for suture removal and wound check. Active range of motion encouraged. Short prescription of [place] provided, encouraged to take [id number] analgesics primarily for pain. Ice and elevation encouraged.
== END 2023-08-04 17:16 | disposition home or self-care (01) ==
LOC: SDC 12:38 → AC 12:40
PROVIDERS: Referring Provider Student in an Organized Health Care Education/Training Program; Visit Provider Student in an Organized Health Care Education/Training Program
PROC: (CPT 64721; principal; 2023-08-04 14:45)
DX: G56.01 Carpal tunnel syndrome, right upper limb (principal); J44.9 Chronic obstructive pulmonary disease, unspecified; J45.909 Unspecified asthma, uncomplicated; Z79.82 Long term (current) use of aspirin; Z80.3 Family history of malignant neoplasm of breast; Z80.8 Family history of malignant neoplasm of other organs or systems; E78.5 Hyperlipidemia, unspecified; I25.10 Atherosclerotic heart disease of native coronary artery without angina pectoris; R20.2 Paresthesia of skin; E66.3 Overweight; I10 Essential (primary) hypertension; Z68.28 Body mass index [BMI] 28.0-28.9, adult
CPT/HCPCS: 64721; 01810; 36415; 80048; 85025; 93005; J7120; J2405

== ENCOUNTER → 2023-12-14 | Outpatient (CLI) | payer MEDICARE, SELFPAY ==
--- NOTE | 2023-12-14 07:49 | NM_ITS ---
CLINICAL: 58-year-old female with history of midthoracic spine compression fracture. WHOLE BODY 99m Tc MDP RADIONUCLIDE BONE SCINTIGRAPHY COMPARISON: None available FINDINGS: Following the intravenous administration of 26.7 mCi of 99m Tc MDP, whole body bone images reveal: 1. Facilitated uptake is identified in the right elbow, the wrist articulations bilaterally, the patellofemoral compartments of both knees, lateral tibial compartment of the right knee, anterior midline compartment of the left knee, the acromioclavicular compartment of the right shoulder. 2. The remaining skeletal structures are scintigraphically unremarkable with normal-appearing renal images and urinary bladder activity identified. Meticulous attention paid to the region of the fifth-sixth thoracic vertebra demonstrates no evidence of increased tracer uptake. NM/Bone Scan Whole Body IMPRESSION: 1. The increase in tracer uptake defined in the right shoulder, right elbow, the bilateral wrists and knee articulations bilaterally is commensurate with degenerative arthrosis. 2. Special attention given to the thoracic spine demonstrates no evidence of abnormal increased uptake indicative of trauma-fracture on the present examination. Electronically Signed: Jesus Caldera DO at 9:25 EST ,
--- OUTSIDE RECORDS SUMMARY | 2023-12-14 08:18 | XMS RPT_ITS | CCD ---
Author Name Unknown Address [id number] [place] [address] Organization [facility] Care Team Providers Care Floor Layer Apprentice Name Role Phone Edda ANGELA, Diallo Tesfaye Unavailable Ashley Bear Unavailable Unavailable Ashley Bear Unavailable Unavailable KRISS CAUSEY, DR MARTINEZ Primary Care Physician [phone] KRISS CAUSEY, DR MARTINEZ Primary Care Physician KRISS CAUSEY, DR MARTINEZ Attending Unavailable KRISS CAUSEY, DR MARTINEZ Primary Care Unavailable KRISS CAUSEY, DR MARTINEZ Attending Unavailable KRISS CAUSEY, DR MARTINEZ Primary Care Unavailable EDISON DONG Attending Yoko MONTERROSO DO, DR MARTINEZ Primary Care Unavailable Allergies Allergy Classification Reported Allergen(s) Allergy Type Date of Onset Reaction(s) Facility (6 sources) Bee/Wasp/Ant venom Drug allergy [facility] (9 sources) Cat Allergy to substance [facility] (6 sources) Ethinyl Estradiol / Levonorgestrel; Translations: [ethinyl estradiol-steve orgestrel] Drug Allergy [facility] (6 sources) Mushroom (edible) Food allergy Pharyngeal swelling (finding) [facility] (6 sources) Grass Allergy to substance Itching of skin (finding) [facility] (1 source) detergent, TIDE Allergy to substance Weal (disorder) [facility] Medications Current Medications Medication Drug Class(es) Dates Sig (Normalized) Sig (Original) albuterol MDI (90 mcg/inh) CFC free inhalation aerosol (6 sources) Start: 09-06-2023 take 2 puff(s) by inhalation every four hours as needed for wheezing albuterol MDI (90 mcg/inh) CFC free inhalation aerosol 2 puff(s), Inhalation, q4h, PRN as needed for wheezing, # 1 EA, 1 Refill(s), Pharmacy: [facility]/pharmacy #[id number], 155, cm, 06/09/23 10:10:00 EDT, Height, kg, 06/09/23 10:10:00 EDT, Dosing Weight Start Date: 09/06/23 Status: Ordered Completed/Discontinued Medications Medication Drug Class(es) Dates Sig (Normalized) Sig (Original) diphenhydrAMINE / phenylephrine (5 sources) Histamine-1 Receptor Antagonist, alpha-1 Adrenergic Agonist take 1 tablet by mouth once daily RA ALLERGY PLUS SINUS TABS One tablet by mouth daily DIPHENHYDRAMINE- PHENYLEPHRINE TABS [id number] Ashley Bear predniSONE 10 mg oral tablet (6 sources) Corticosteroid Start: 06-09-2023 End: 06-15-2023 prednisone 10mg tab (TAPER) Taper 72-03-34-30-20-1 0 x 1 day, Oral, qAM, # 21 tab(s), 0 Refill(s), Pharmacy: [facility]pharmacy #[id number], Carpal tunnel syndrome, right, 155, cm, 06/09/23 10:10:00 EDT, Height, kg, 06/09/23 10:10:00 EDT, Dosing Weight Start Date: 06/09/23 Stop Date: 06/15/23 Status: Ordered Problems Active Problems Problem Classification Problem Date Documented Date Episodic/Chronic Asthma (6 sources) Asthma 02-27-2014 Chronic Biliary tract disease (2 sources) Gallstone 12-27-2020 Episodic Coronary atherosclerosis and other heart disease (6 sources) Coronary arteriosclerosis 05-01-2020 Chronic Coronary atherosclerosis and other heart disease (6 sources) Patient post percutaneous transluminal coronary angioplasty 07-02-2020 Episodic Disorders of lipid metabolism (8 sources) Hyperlipidemia 02-27-2014 Chronic Essential hypertension (6 sources) Hypertensive disorder 10-17-2020 Chronic Malaise and fatigue (6 sources) Fatigue 04-01-2020 Episodic Nonspecific chest pain (6 sources) Chest pain 04-01-2020 Episodic Osteoarthritis (6 sources) Osteoarthritis of knee 04-03-2021 Chronic Other non-traumatic joint disorders (3 sources) Arthritis of knee 03-25-2022 Chronic Other non-traumatic joint disorders (5 sources) Pain in wrist 01-02-2022 Episodic Residual codes; unclassified (6 sources) Obstructive sleep apnea syndrome 05-01-2020 Chronic Residual codes; unclassified (6 sources) Postoperative state 01-28-2021 Episodic Residual codes; unclassified (6 sources) Uterine cervix absent 03-26-2021 Episodic Unclassified (1 source) No current problems or disability 08-01-2017 Unclassified (1 source) Aftercare ; Translations: [Encounter for other specified surgical aftercare] Onset: 08-25-2017 10-01-2017 Unclassified (1 source) Vaccination needed 08-25-2023 Past or Other Problems Problem Classification Problem Date Documented Da te Episodic/Chronic Neoplasms of unspecified nature or uncertain behavior (4 sources) Neoplasm of face; Translations: [Neoplasm of unspecified behavior of bone, soft tissue, and skin] Onset: 08-01-2017 08-16-2017 Episodic Other and unspecified benign neoplasm (1 source) Fibrous papule of face; Translations: [Melanocytic nevi of other parts of face] Onset: 08-25-2017 10-01-2017 Episodic Other skin disorders (1 source) Actinic keratosis; Translations: [Actinic keratosis] Onset: 08-25-2017 10-01-2017 Episodic Residual codes; unclassified (4 sources) Family history of malignant neoplasm of skin; Translations: [Family history of malignant neoplasm of other organs or systems] Onset: 08-01-2017 08-16-2017 Episodic Results Test Name Value Interpretation Reference Range Facil ity Vital Signs Date Time Vital Sign Value Performing Clinician Jerilyn matias 08-25-2017 14:57-0400 BMI (Body Mass Index) 27.75 kg/m2 [facility]: 08-25-2017 14:57-0400 Body Temperature 98.2 [degF] Diallo Bañuelos MD [facility] Work Phone: 08-25-2017 14:57-0400 BP Diastolic 89 mm[Hg] Diallo Bañuelos MD [facility] Work Phone: 08-25-2017 14:57-0400 BP Systolic 142 mm[Hg] Diallo Bañuelos MD [facility] Work Phone: 08-25-2017 14:57-0400 BSA (Body Surface Area) 1.78 m2 Diallo Bañuelos MD [facility] Work Phone: 08-25-2017 14:57-0400 Height 161.93 cm Diallo Bañuelos MD [facility] Work Phone: 08-25-2017 14:57-0400 Pulse (Heart Rate) 61 /min Diallo Bañuelos MD [facility] Work Phone: 08-25-2017 14:57-0400 Respiratory Rate 16 /min Diallo Bañuelos MD [facility] Work Phone: 08-25-2017 14:57-0400 Weight 72.76 kg Diallo Bañuelos MD [facility] Work Phone: 08-01-2017 15:32-0400 BMI (Body Mass Index) 27.57 kg/m2 Ashleypadmini [facility] Work Phone: 08-01-2017 15:32-0400 Body Temperature 97.6 [degF] Ashleypadmini Bear [facility] Work Phone: 08-01-2017 15:32-0400 BP Diastolic 88 mm[Hg] Ashley Bear [facility] Work Phone: 08-01-2017 15:32-0400 BP Systolic 158 mm[Hg] Ashleypadmini Bear [facility] Work Phone: 08-01-2017 15:32-0400 Height 161.93 cm Ashleypadmini Bear [facility] Work Phone: 08-01-2017 15:32-0400 Pulse (Heart Rate) 80 /min Ashley [facility] Work Phone: 08-01-2017 15:32-7397 Respiratory Rate 16 /min Ashley [facility] Work Phone: 08-01-2017 15:32-9392 Weight 72.3 kg Ashley [facility] Work Phone: Encounters Encounter Date Encounter Type Care Provider Facility Start: 11-24-2023 End: 11-25-[address] MICHELLE MONTERROSO DO Facility:[facility] Start: 11-24-2023 End: 11-24-[address] MICHELLE MONTERROSO DO [facility] Start: 01-21-2023 End: 01-22-[address] MICHELLE MONTERROSO DO Facility:[facility] Start: 01-21-2023 End: 01-21-[address] MICHELLE MONTERROSO DO [facility] Start: 12-10-2022 End: 12-11-2022 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 Facility:[facility] Start: 05-27-2022 End: 05-27-2022 Patient encounter procedure MILY GIBSON DO [facility] Start: 03-02-2022 End: 03-02-[address] MICHELLE MONTERROSO DO [facility] Start: 01-02-2022 End: 01-02-2022 Patient encounter procedure LISA DEAN DO [facility] Start: 11-03-2021 End: 11-03-2021 Patient encounter procedure ENOCH NGUYEN MD [facility] Procedures Date Procedure Procedure Detail Performing Clinician Start: 06-24-2022 Knee region structur e (body structure) DR MICHELLE MONTERROSO DO Plan of Treatment Date Care Activity Detail Author Start: 08-25-2017 End: 08-25-2017 Appointment Appointment [facility] Work Phone: Start: 08-25-2017 End: 10-01-2017 Follow up Appt 3 weeks Follow up Appt 3 weeks [facility] Work Phone: Start: 08-16-2017 End: 08-16-2017 Appointment Appointment [facility] Work Phone: Start: 08-01-2017 End: 08-01-2017 Appointment Appointment [facility] Work Phone: Start: 08-01-2017 End: 08-16-2017 Follow Up Appt Other Follow Up Appt Other [facility] Work Phone: Immunizations Immunization Date Immunization Notes Care Provider Fa [facility] 08-25-2023 influenza, injectabl e, quadrivalent, contains preservative; Translations: [Fluarix PF Quadrivalent ] DR MICHELLE MONTERROSO DO [facility] 07-30-2022 COVID-19, mRNA, LNP- S, bivalent booster, PF, 30 mcg/0.3 mL dose; Translations: [[employer]haali COVID-19 (12y+) Bivalent Booster Vaccine PF] DR MICHELLE MONTERROSO DO [facility] Payers Date Payer Category Payer Private Health Insurance [id number] 1965 Unknown [id number] 1965 Unknown [id number] 1965 Unknown [id number] Social History Date Type Detail Facility Start: 08-14-2019 Never smoked t obacco (finding) [facility] Sex Assigned At Female [facility] Clinical Notes 01-02-2022 to 05-27-2022 RadiologyRadiologyRadiology Note Date & Type Note Facility 05-27-2022 Note ORIGINAL EXAMINATION: TWO XRAY VIEWS OF THE CHEST05/27/2022 10:45 am COMPARISON: CT abdomen and pelvis dated 07/30/2021 HISTORY: ORDERING SYSTEM PROVIDED HISTORY: Reason for Exam: pre op, history of asthma FINDINGS: Cardiomediastinal contours are within normal limits. No focal consolidation or pulmonary edema. No pneumothorax or pleural effusion. No acute osseous abnormalities. Degenerative changes of the spine, bilateral AC, and glenohumeral joints.. Surgical clips in the right upper quadrant. IMPRESSION: No acute cardiopulmonary process. I have personally reviewed the images of this examination and agree with the resident's findings and interpretations. Interpreted by: Manuel Coombs MD Preliminary Report By: Hadley Conley Electronically signed By Manuel Coombs MD Dictated Date: 05/27/2022 10:55:32 AM Prelim Date: 05/27/2022 11:04:12 AM Sign Date: 05/27/2022 11:04:12 AM Ordering Provider: MILY GIBSON [facility] 05-27-2022 Note ORIGINAL EXAMINATION: TWO XRAY VIEWS OF THE CHEST05/27/2022 10:45 am COMPARISON: CT abdomen and pelvis dated 07/30/2021 HISTORY: ORDERING SYSTEM PROVIDED HISTORY: Reason for Exam: pre op, history of asthma FINDINGS: Cardiomediastinal contours are within normal limits. No focal consolidation or pulmonary edema. No pneumothorax or pleural effusion. No acute osseous abnormalities. Degenerative changes of the spine, bilateral AC, and glenohumeral joints.. Surgical clips in the right upper quadrant. IMPRESSION: No acute cardiopulmonary process. I have personally reviewed the images of this examination and agree with the resident's findings and interpretations. Interpreted by: Manuel Coombs MD Preliminary Report By: Hadley Conley Electronically signed By Manuel Coombs MD Dictated Date: 05/27/2022 10:55:32 AM Prelim Date: 05/27/2022 11:04:12 AM Sign Date: 05/27/2022 11:04:12 AM Ordering Provider: MILY GIBSON [facility] 01-02-2022 Evaluation + Plan note Future Scheduled TestsXR Wrist Minimum 3 Views Left 01/02/22XR Wrist Minimum 3 Views Left 01/02/22 [facility] 01-02-2022 Evaluation + Plan note Future Scheduled TestsXR Wrist Minimum 3 Views Left 01/02/22XR Wrist Minimum 3 Views Left 01/02/22 [facility] Evaluation + Plan note Future Appointments Appointment Date:11/16/2021 09:00:00 AM Scheduled Provider: Location:[facility] Appointment Type:COVID AMB VACCINE Appointment Date:12/10/2021 09:15:00 AM Scheduled Provider:RAISSA CAMPOS Location:[facility] Appointment Type:CV OV [facility] Evaluation + Plan note Future Appointments Appointment Date:06/08/2022 08:00:00 AM Scheduled Provider:MICHELLE MONTERROSO DO Location:[facility] Appointment Type:PC OV Pre Op Appointment Date:09/21/2022 10:15:00 AM Scheduled Provider: Location:[facility] Appointment Type:COVID AMB VACCINE Appointment Date:2022 10:00:00 AM Scheduled Provider:RAISSA CAMPOS Location:[facility] Appointment Type:CV OV Future Scheduled TestsXR Wrist Minimum 3 Views Left 01/02/22XR Wrist Minimum 3 Views Left 01/02/22 [facility] Evaluation + Plan note Future Appointments Appointment Date:06/09/2023 10:00:00 AM Scheduled Provider:RAISSA CAMPOS Location:[facility] Appointment Type:CV OV [facility] Evaluation + Plan note Future Appointments Appointment Date:01/04/2024 09:15:00 AM Scheduled Provider:RAISSA CAMPOS Location:[facility] Appointment Type:CV OV [facility] Hospital course Narrative No data available for this section [facility] Hospital Discharge instructions No data available for this section [facility] Progress note No data available for this section [facility] Summary Purpose Family History No Family History Records Found Advance Directives No Advanced Directives Records Found Additional Source Comments Care Team (unrecognized sect ion and content) Personnel Name: MICHELLE MONTERROSO DO Address: [address] [place] [address] Care Team Personnel Name: MICHELLE MONTERROSO DO Position: P4 Physician - Primary Care Member Role: Primary Care Physician Address: Address: [address] [place] [address] Care Team Related Persons Name: ENID LOCO Address: Home [address] [place], [place] [id number] Address: Temporary [address] [place], [place] [id number] Care Team (unrecognized sect ion and content) Care Team Personnel Name: MICHELLE MONTERROSO DO Position: P4 Physician - Primary Care Med Service: Active Provider Member Role: Primary Care Physician Address: Address: [address] [place] [address] Care Team Related Persons Name: ENID LOCO Address: Home [address] [id number] Address: Temporary [address] [place], [place] [id number] Care Team Personnel Name: MICHELLE MONTERROSO DO Position: P4 Physician - Primary Care Member Role: Primary Care Physician Address: Address: [address] [place] [address] Care Team Related Persons Name: ENID LOCO Address: Home [address] [place], [place] [id number] Address: Temporary [address] [place], [place] [id number] INFORMATION SOURCE (unrecogn ized section and content) FOR RECORDS PERTAINING TO PATIENTS WHO ARE OR HAVE BEEN ENROLLED IN A CHEMICAL DEPENDENCY/SUBSTANCEABUSE PROGRAM, SOME INFORMATION MAY BE OMITTED. This clinical summary was aggregated from multiple sources. Caution should be exercised in using it in the provision of clinical care. This summary normalizes information from multiple sources, and as a consequence, information in this document may materially change the coding, format and clinical context of patient data. In addition, data may be omitted in some cases. CLINICAL DECISIONS SHOULD BE BASED ON THE PRIMARY CLINICAL RECORDS. [facility] [employer] [facility]. provides no warranty or guarantee of the accuracy or completeness of information in this document.
== END | disposition home or self-care (01) ==
LOC: NM 07:48
PROVIDERS: Referring Provider Orthopaedic Surgery; Visit Provider Orthopaedic Surgery
DX: S22.050A Wedge compression fracture of T5-T6 vertebra, initial encounter for closed fracture (principal); M85.88 Other specified disorders of bone density and structure, other site
CPT/HCPCS: 78306; A9503

== ENCOUNTER → 2023-12-29 | Outpatient (CLI) | payer MEDICARE, SELFPAY ==
--- NOTE | 2023-12-29 11:44 | RAD_ITS ---
PROCEDURE: LUMBAR MYELOGRAM DATE OF EXAMINATION: December 29, 2023. INDICATION: Female, 58 years old. Low back pain. PHYSICIAN: Clifford Goldstein M.D. CONSENT: The patient''s history and physical findings were reviewed. The lumbar myelogram procedure was discussed with the patient prior to signing a consent. SEDATION: Local anesthesia with 3 mL of 1% lidocaine was used. FLUOROSCOPY TIME (if supplied): (0:38) minutes/seconds. 39.25 mGy Injection Information: 10 cc of Isovue M 200 Number of images obtained: 4 TECHNIQUE: Digital fluoroscopy was used to identify a safe approach for the lumbar myelogram. The back was prepped and draped in usual fashion. Local anesthesia was utilized. Under fluoroscopic guidance a 22-gauge spinal needle was inserted into the spinal canal at the L2-L3 level. Clear spinal fluid was seen. 10 mL of Isovue 200 M was injected into the spinal canal. There is good opacification of the spinal fluid. The nerve root sheaths are asymmetrically identified. There is no extradural defects. RAD/Lumbar Myelogram IMPRESSION: Normal lumbar myelogram. CT scan will follow. Electronically Signed: Clifford Goldstein MD at 13:07 EST ,
--- NOTE | 2023-12-29 11:44 | CT_ITS ---
STUDY: CT LUMBAR SPINE WITH INTRATHECAL CONTRAST (LUMBAR CT MYELOGRAM) REASON FOR EXAM: Female, 58 years old. SPINAL STENOSIS RADIATION DOSAGE (If Supplied By Facility): CTDIvol = ( 14.65 ) mGy, DLP = ( 414.83 ) mGycm TECHNIQUE: Transaxial images were obtained from the L1 vertebra through the S1, following intrathecal administration of 10 ml of Isovue-M 200 contrast material, performed by Dr. Goldstein. Please refer to this physicians technical notes for procedural details. Coronal and sagittal reconstructions were obtained. Individualized dose optimization techniques were used for this CT. COMPARISON: None. FINDINGS: Normal lumbar lordosis. There is no substantial scoliosis. Normal vertebrae of the lumbar spine. There is dependent layering of contrast material in the distal thecal sac. The conus medullaris terminates in a normal position at the L1-L2 level. There is no demonstrated cauda equina nerve root abnormality or intraspinal mass. L1-2: Normal endplates. Normal disc height and morphology. Normal bilateral facet joints. Normal central canal and bilateral lateral recesses. Normal bilateral intervertebral neural foramina. L2-3: Normal endplates. Normal disc height and morphology. Normal bilateral facet joints. Normal central canal and bilateral lateral recesses. Normal bilateral intervertebral neural foramina. L3-4: Normal endplates. Normal disc height and morphology. Normal bilateral facet joints. Normal central canal and bilateral lateral recesses. Normal bilateral intervertebral neural foramina. L4-5: Normal endplates. Normal disc height and morphology. Normal bilateral facet joints. Normal central canal and bilateral lateral recesses. Normal bilateral intervertebral neural foramina. L5-S1: Normal endplates. Normal disc height and morphology. Normal bilateral facet joints. Normal central canal and bilateral lateral recesses. Normal bilateral intervertebral neural foramina. Normal visualized sacroiliac joints. Normal visualized paraspinous soft tissue structures. CT/Spine Lumbar WITH Contrast IMPRESSION: Normal CT myelogram of the lumbar spine. Electronically Signed: Clifford Goldstein MD at 14:50 EST ,
[2023-12-29 12:07] VITALS: BP 160/85; PULSE 70; RESP 16; TEMP 36.1; O2SAT 97; BMI 23.8
[2023-12-29 12:45] VITALS: BP 160/85; PULSE 70; RESP 16; TEMP 36.1; O2SAT 97
[2023-12-29 14:11] VITALS: BP 167/63; PULSE 64; RESP 18; O2SAT 97
--- OUTSIDE RECORDS SUMMARY | 2023-12-29 17:36 | XMS RPT_ITS | CCD ---
Author Name Unknown Address [address] [place] [address] Organization [facility] Care Team Providers Care Market Relationship Manager Name Role Phone Edda ANGELA, Diallo Tesfaye Unavailable Ashley Bear Unavailable Unavailable Ashley Bear Unavailable Unavailable KRISS CAUSEY, DR MARTINEZ Primary Care Physician [phone] KRISS CAUSEY, DR MARTINEZ Primary Care Physician KRISS CAUSEY, DR MARTINEZ Attending Unavailable KRISS CAUSEY, DR MARTINEZ Primary Care Unavailable KRISS CAUSEY, DR MARTINEZ Attending Unavailable KRISS CAUSEY, DR MARTINEZ Primary Care Unavailable EDISON DONG Attending Yoko MONTERROSO DO, DR MARTINEZ Primary Care Unavailable Allergies Allergy Classification Reported Allergen(s) Allergy Type Date of Onset Reaction(s) Facility (6 sources) Bee/Wasp/Ant venom Drug allergy [facility] (3 sources) Cat Allergy to substance [facility] (6 sources) Ethinyl Estradiol / Levonorgestrel; Translations: [ethinyl estradiol-steve orgestrel] Drug Allergy [facility] (6 sources) Mushroom (edible) Food allergy Pharyngeal swelling (finding) [facility] (6 sources) Grass Allergy to substance Itching of skin (finding) [facility] (1 source) detergent, TIDE Allergy to substance Weal (disorder) [facility] [place] Medications Current Medications Medication Drug Class(es) Dates Sig (Normalized) Sig (Original) albuterol MDI (90 mcg/inh) CFC free inhalation aerosol (6 sources) Start: 09-06-2023 take 2 puff(s) by inhalation every four hours as needed for wheezing albuterol MDI (90 mcg/inh) CFC free inhalation aerosol 2 puff(s), Inhalation, q4h, PRN as needed for wheezing, # 1 EA, 1 Refill(s), Pharmacy: [facility]/pharmacy #[id number], 155, cm, 06/09/23 10:10:00 EDT, Height, kg, 06/09/23 10:10:00 EDT, Dosing Weight Start Date: 09/06/23 Status: Ordered Completed/Discontinued Medications Medication Drug Class(es) Dates Sig (Normalized) Sig (Original) diphenhydrAMINE / phenylephrine (5 sources) Histamine-1 Receptor Antagonist, alpha-1 Adrenergic Agonist take 1 tablet by mouth once daily RA ALLERGY PLUS SINUS TABS One tablet by mouth daily DIPHENHYDRAMINE- PHENYLEPHRINE TABS [id number] Ashley Bear predniSONE 10 mg oral tablet (6 sources) Corticosteroid Start: 06-09-2023 End: 06-15-2023 prednisone 10mg tab (TAPER) Taper 06-61-25-30-20-1 0 x 1 day, Oral, qAM, # 21 tab(s), 0 Refill(s), Pharmacy: [facility]/pharmacy #[id number], Carpal tunnel syndrome, right, 155, cm, [...] Body Temperature 98.2 [degF] Diallo Bañuelos MD [facility] Work Phone: 08-25-2017 14:57-0400 BP Diastolic 89 mm[Hg] Diallo Bañuelos MD [facility] Work Phone: 08-25-2017 14:57-0400 BP Systolic 142 mm[Hg] Diallo Bañuelos MD [facility] Work Phone: 08-25-2017 14:57-0400 BSA (Body Surface Area) 1.78 m2 Diallo Bañuelos MD [facility] Work Phone: 08-25-2017 14:57-0400 Height 161.93 cm Diallo Bañuelos MD [facility] Work Phone: 08-25-2017 14:57-0400 Pulse (Heart Rate) 61 /min Diallo Bañuelos MD [facility] Work Phone: 08-25-2017 14:57-0400 Respiratory Rate 16 /min Diallo Bañuelos MD [facility] Work Phone: 08-25-2017 14:57-0400 Weight [...] 15:32-0400 BP Systolic 158 mm[Hg] Ashleypadmini Bear [facility] Work Phone: 08-01-2017 15:32-0400 Height 161.93 cm Ashleypadmini Bear [facility] Work Phone: 08-01-2017 15:32-0400 Pulse (Heart Rate) 80 /min Ashley [facility] Work Phone: 08-01-2017 15:32-8897 Respiratory Rate 16 /min [facility] Work Phone: 08-01-2017 15:32-1187 Weight 72.3 kg Ashley [facility] Work Phone: Encounters Encounter Date Encounter Type Care Provider Facility Start: 11-24-2023 End: 11-25-[address] MICHELLE MONTERROSO DO Facility:[facility] Start: 11-24-2023 End: 11-24-[address] MICHELLE MONTERROSO DO [facility] Start: 01-21-2023 End: 01-22-[address] MICHELLE MONTERROSO DO Facility:[facility] Start: 01-21-2023 End: 01-21-[address] MICHELLE MONTERROSO DO [facility] Start: 12-10-2022 End: 12-11-2022 ambulatory EDISON NORMAN 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 Facility:[facility] Start: 05-27-2022 End: 05-27-2022 Patient encounter procedure MILY GIBSON DO [facility] Start: 03-02-2022 End: 03-02-[address] MICHELLE MONTERROSO DO [facility] Start: 01-02-2022 End: 01-02-2022 Patient encounter procedure LISA DEAN DO [facility] Start: 11-03-2021 End: 11-03-2021 Patient encounter procedure ENOCH NGUYEN MD [facility] Procedures Date Procedure Procedure Detail Performing Clinician Start: 06-24-2022 Knee region structur e (body structure) DR MICHELLE MONTERROSO DO Plan of Treatment Date Care Activity Detail Author Start: 08-25-2017 End: 08-25-2017 Appointment Appointment [facility] Work Phone: Start: 08-25-2017 End: 10-01-2017 Follow up Appt 3 weeks Follow up Appt 3 weeks [facility] Work Phone: Start: 08-16-2017 End: 08-16-2017 Appointment Appointment [facility] Work Phone: Start: 08-01-2017 End: 08-01-2017 Appointment Appointment [facility] Work Phone: Start: 08-01-2017 End: 08-16-2017 Follow Up Appt Other Follow Up Appt Other [facility] Work Phone: Immunizations Immunization Date Immunization Notes Care Provider [facility] 08-25-2023 influenza, injectabl e, quadrivalent, contains preservative; Translations: [Fluarix PF Quadrivalent ] DR MICHELLE MONTERROSO DO [facility] 07-30-2022 COVID-19, mRNA, LNP- S, bivalent booster, PF, 30 mcg/0.3 mL dose; Translations: [[employer] COVID-19 (12y+) Bivalent Booster Vaccine PF] DR MICHELLE MONTERROSO DO [facility] Payers Date Payer Category Payer Private Health Insurance [id number] 1965 Unknown [id number] 1965 Unknown [id number] 1965 Unknown [id number] Social History Date Type Detail Facility Start: 08-14-2019 Never smoked t obacco (finding) [facility] Sex Assigned At Female [facility] Clinical Notes 01-02-2022 to 05-27-2022 RadiologyRadiologyRadiology Note [...] 05/27/2022 11:04:12 AM Ordering Provider: MILY GIBSON [facility] 05-27-2022 Note ORIGINAL EXAMINATION: TWO XRAY VIEWS [...] 05/27/2022 11:04:12 AM Ordering Provider: MILY GIBSON [facility] 01-02-2022 Evaluation + Plan note Future Scheduled TestsXR Wrist Minimum 3 Views Left 01/02/22XR Wrist Minimum 3 Views Left 01/02/22 [facility] 01-02-2022 Evaluation + Plan note Future Scheduled TestsXR Wrist Minimum 3 Views Left 01/02/22XR Wrist Minimum 3 Views Left 01/02/22 [facility] Evaluation + Plan note Future Appointments Appointment Date:11/16/2021 09:00:00 AM Scheduled Provider: Location:[facility] Appointment Type:COVID AMB VACCINE Appointment Date:12/10/2021 09:15:00 AM Scheduled Provider:RAISSA CAMPOS Location:[facility] Appointment Type:CV OV [facility] Evaluation + Plan note Future Appointments Appointment Date:06/08/2022 08:00:00 AM Scheduled Provider:MICHELLE MONTERROSO DO Location:[facility] Appointment Type:PC OV Pre Op Appointment Date:09/21/2022 10:15:00 AM Scheduled Provider: Location:[facility] Appointment Type:COVID AMB VACCINE Appointment Date:2022 10:00:00 AM Scheduled Provider:RAISSA CAMPOS Location:[facility] Appointment Type:CV OV Future Scheduled TestsXR Wrist Minimum 3 Views Left 01/02/22XR Wrist Minimum 3 Views Left 01/02/22 [facility] Evaluation + Plan note Future Appointments Appointment Date:06/09/2023 10:00:00 AM Scheduled Provider:RAISSA CAMPOS Location:[facility] Appointment Type:CV OV [facility] Evaluation + Plan note Future Appointments Appointment Date:01/04/2024 09:15:00 AM Scheduled Provider:RAISSA CAMPOS Location:[facility] Appointment Type:CV OV [facility] Hospital course Narrative No data available for this section [facility] Hospital Discharge instructions No data available for this section [facility] Progress note No data available for this section [facility] Summary Purpose Family History No Family History Records Found Advance Directives No Advanced Directives Records Found Additional Source Comments Care Team (unrecognized sect ion and content) Personnel Name: MICHELLE MONTERROSO DO Address: [address] [place] [address] Care Team Personnel Name: MICHELLE MONTERROSO DO Position: P4 Physician - Primary Care Member Role: Primary Care Physician Address: Address: [address] [place] [address] Care Team Related Persons Name: ENID LOCO Address: Home [address] [place], [place] [id number] Address: Temporary [address] [place], [place] [id number] Care Team (unrecognized sect ion and content) Care Team Personnel Name: MICHELLE MONTERROSO DO Position: P4 Physician - Primary Care Med Service: Active Provider Member Role: Primary Care Physician Address: Address: [address] [place] [address] Care Team Related Persons Name: ENID LOCO Address: Home [address] [id number] Address: Temporary [address] [place], [place] [id number] Care Team Personnel Name: MICHELLE MONTERROSO DO Position: P4 Physician - Primary Care Member Role: Primary Care Physician Address: Address: [address] [place] [address] Care Team Related Persons Name: ENID LOCO Address: Home [address] [place], [place] [id number] Address: Temporary [address] [place], [place] [id number] INFORMATION SOURCE (unrecogn ized section and content) [...] BE BASED ON THE PRIMARY CLINICAL RECORDS. [facility]. provides no warranty or guarantee of the accuracy or completeness of information in this document.
== END | disposition home or self-care (01) ==
PROVIDERS: Referring Provider Orthopaedic Surgery; Visit Provider Orthopaedic Surgery
DX: M48.061 Spinal stenosis, lumbar region without neurogenic claudication (principal); M47.896 Other spondylosis, lumbar region; M51.36 Other intervertebral disc degeneration, lumbar region
CPT/HCPCS: 62284; 62304; 72132

== ENCOUNTER 2024-09-10 05:10 | Day surgery (SDC) | payer MEDICARE, SELFPAY ==
[2024-09-10] VITALS (8 sets, daily range): BP systolic 96–104; BP diastolic 67–80; PULSE 70–79; RESP 16; TEMP 36.6–37.1; O2SAT 96–98; BMI 29.2
--- NOTE | 2024-09-10 | IMM_PTH ---
PATHOLOGY RESULTS PATIENT: LUCIANO LOCO LOC: EN U#:[id number] AGE/SX: 58/F ROOM: RE09/10/[address]: Dr. Be Chapman DO : 1965 BED: DIS: 09/10/2024 SPEC #: [id number] RECD: 09/11/24 11:04 STATUS: VERÓNICA REQ #: [id number] JESSICA: 09/10/24 00:[address]: eB Chapman DEPT: IMMUNOHISTOCHEMISTRY RECD BY: Brendan Ribeiro ENTERED: 09/11/24 11:05 SP TYPE: IMMUNO MACI DR: Dr. Nayely Villalobos DO Tissues: Esophagus, NOS Procedures: P53 (initial) KI-67 (add) PHYSICIAN & INSTITUTION [place] [address] SPECIMEN INFORMATION: Tissue Source: Distal esophagus biopsy Clinical Info: Dysphagia Specimen Number: [id number] CPT code: 49821 METHODOLOGY: Deparaffinized sections of prefer/formalin-fixed tissue or PAP/DQ stained slides are incubated with monoclonal/polyclonal antibodies/oligonucleotide probes. Localization is made via biotin free immunoperoxidase method. Appropriate controls are performed and reacted as expected. Results on target cell population are indicated in the following table: RESULTS: ANTIBODY / CLONE RESULT P53 (DO-7) negative (null pattern) Ki-67 (30-9) positive, low These tests were developed and their performance characteristics determined by [facility]. They may not have been cleared or approved by the U.S. Food and Drug Administration. The FDA has determined that such clearance or approval is not necessary. The above immunohistochemical/dualISH markers are ordered and reviewed by the Pathologist. INTERPRETATION: Distal esophagus, biopsy: Negative for dysplasia. 09/12/2024
--- OUTSIDE RECORDS SUMMARY | 2024-09-10 05:13 | XMS RPT_ITS | CCD ---
Author Organization [facility] Care Team Providers Care Access Liaison Name Role Phone Edda ANGELA, Diallo Tesfaye Unavailable Ashley Bear Unavailable Unavailable Ashley Bear Unavailable Unavailable KRISS DO, DR MARTINEZ Primary Care Physician KRISS DO, DR MARTINEZ Primary Care Physician VIKTOR BARAKAT DO Attending Unavailable KRISS DO, DR MARTINEZ Primary Care Unavailable YOSI HERNANDEZ MD Consulting Unavailable KRISS DO, DR MARTINEZ Primary Care Unavailable BARAKAT DO, VIKTOR Admitting Unavailable BARAKAT DO, VIKTOR Attending Unavailable KENNEN UMBRELLA MENDER-TUG MASTER, MICHELLE Rendon Consulting Unaaga BARAKAT DO, VIKTOR Attending Unavailable KRISS DO, DR MARTINEZ Primary Care Unavailable KRISS DO, DR MARTINEZ Primary Care Unavailable BARAKAT DO, VIKTOR Attending Unavailable KRISS DO, DR MARTINEZ Primary Care Unavailable MAST UMBRELLA MENDER-TUG MASTERALPHONSO Attending Unavailabl e KRISS DO, DR MARTINEZ Primary Care Unavailable KRISS DO, DR MARTINEZ Attending Unavailable KRISS DO, DR MARTINEZ Primary Care Unavailable FISH UMBRELLA MENDER-TUG MASTER, RAISSA Attending Unavailab le KRISS DO, DR MARTINEZ Primary Care Unavailable AIMEE MOBLEY Attending Unavailable KRISS DO, DR MARTINEZ Primary Care Unavailable BARAKAT DO, VIKTOR Attending Unavailable KRISS DO, DR MARTINEZ Attending Unavailable KRISS DO, DR MARTINEZ Primary Care Unavailable Allergies Allergy Classification Reported Allergen(s) Allergy Type Date of Onset Reaction(s) Facility (12 sources) Bee/Wasp/Ant venom Drug allergy [facility] (12 sources) Cat Allergy to substance [facility] (12 sources) Ethinyl Estradiol / Levonorgestrel; Translations: [ethinyl estradiol-steve orgestrel] Drug Allergy [facility] (12 sources) Mushroom (edible) Food allergy Pharyngeal swelling (finding) [facility] (12 sources) Grass Allergy to substance Itching of skin (finding) [facility] (7 sources) detergent, TIDE Allergy to substance Weal (disorder) [facility] [place] Medications Current Medications Medication Drug Class(es) Dates Sig (Normalized) Sig (Original) acetaminophen 325 mg / HYDROcodone bitartrate 5 mg oral tablet (1 source) Opioid Agonist Start: 04-04-2024 End: 04-11-2024 take 1 tablet by mouth every six hours as needed for pain Cecil 325- 5 mg oral tablet Dose = 1 tab(s), Oral, q6h, PRN for pain, X 7 day(s), # 28 tab(s), 0 Refill(s), Pharmacy: [facility]/pharmacy #[id number], Lumbar spondylosis, 157.8, cm, 04/04/24 9:00:00 EDT, Height, 59.09, kg, 04/04/24 9:00:00 EDT, Dosing Weight Start Date: 04/04/24 Stop Date: 04/11/24 Status: Ordered albuterol MDI (90 mcg/inh) CFC free inhalation aerosol (12 sources) Start: 04-13-2024 take 2 puff(s) by inhalation every four hours as needed for wheezing albuterol MDI (90 mcg/inh) CFC free inhalation aerosol 2 puff(s), Inhalation, q4h, PRN as needed for wheezing, # 1 EA, 1 Refill(s), Pharmacy: [facility], 157.8, cm, 04/04/24 13:59:00 EDT, Height, kg, 04/04/24 13:59:00 EDT, Dosing Weight Start Date: 04/13/24 Status: Ordered Start: 02-24-2024 take 2 puff(s) by in halation every four hours as needed for wheezing albuterol MDI (90 mcg/inh) CFC free inhalation aerosol 2 puff(s), Inhalation, q4h, PRN as needed for wheezing, # 1 EA, 1 Refill(s), Pharmacy: [facility]/pharmacy #[id number], 155, cm, 02/17/24 13:51:00 EDT, Height, kg, 02/17/24 13:51:00 EDT, Dosing Weight Start Date: 02/24/24 Status: Ordered Start: 09-06-2023 take 2 puff(s) by in halation every four hours as needed for wheezing albuterol MDI (90 mcg/inh) CFC free inhalation aerosol 2 puff(s), Inhalation, q4h, PRN as needed for wheezing, # 1 EA, 1 Refill(s), Pharmacy: [facility]/pharmacy #[id number], 155, cm, 06/09/23 10:10:00 EDT, Height, kg, 06/09/23 10:10:00 EDT, Dosing Weight Start Date: 09/06/23 Status: Ordered Start: 10-12-2022 take 2 puff(s) by in halation every four hours as needed for wheezing albuterol MDI (90 mcg/inh) CFC free inhalation aerosol 2 puff(s), Inhalation, q4h, PRN as needed for wheezing, # 1 EA, 1 Refill(s), Pharmacy: [facility]/pharmacy #[id number], 157, cm, 08/31/22 9:13:00 EDT, Height, kg, 08/31/22 9:13:00 EDT, Dosing Weight Start Date: 10/12/22 Status: Ordered Start: 08-06-2021 take 2 puff(s) by in halation every four hours as needed for wheezing albuterol MDI (90 mcg/inh) CFC free inhalation aerosol 2 puff(s), Inhalation, q4h, PRN as needed for wheezing, # 1 EA, 1 Refill(s), Pharmacy: [facility]/pharmacy #[id number], 157.1, cm, 07/10/21 14:12:00 EDT, Height, kg, 07/10/21 14:12:00 EDT, Dosing Weight Start Date: 08/06/21 Status: Ordered aspirin 81 mg delayed release oral tablet (15 sources) Nonsteroidal Anti-inflammatory Drug Start: 04-17-2020 aspirin 81 mg ora l delayed release tablet Dose : 81 mg = 1 tab(s), Oral, qDay Start Date: 04/17/20 Status: Ordered Start: 04-17-2020 aspirin 81 mg oral delayed release tablet Dose : 81 mg = 1 tab(s), Oral, qDay Start Date: 04/17/20 Status: Ordered ASPIRIN LOW DOSE CHEW as needed ASPIRIN CHEW [id number] Ashley Bear ASPIRIN LOW DOSE CHEW as needed ASPIRIN CHEW [id number] Ashley Bear [facility]ME [facility] (2 sources) Start: 04-20-2024 DME MISCellane ous See Instructions, Spacer for inhaler. Use daily with Symbicort inhaler to take medication, # 1 EA, 0 Refill(s), Pharmacy: [facility]/pharmacy #[id number], 157.8, cm, 04/04/24 13:59:00 EDT, Height, 59.09, kg, 04/04/24 13:59:00 EDT, Dosing Weight Start Date: 04/20/24 Status: Ordered Start: 03-25-2022 DME MISCellane ous See Instructions, left knee J brace 1 EA right knee J brace 1 EA length of need= 99 Dx M17.10, # 1 EA, 0 Refill(s), Patellofemoral arthritis, 74.2 Start Date: 03/25/22 Status: Ordered ibuprofen 800 mg oral tablet (2 sources) Nonsteroidal Anti-inflammatory Drug Start: 02-13-2024 ibuprofen 800 mg oral tablet Dose : 800 mg = 1 tab(s), Oral, TID, PRN as needed for pain, # 30 tab(s), 0 Refill(s) Start Date: 02/13/24 Status: Ordered 24 hr isosorbide mononitrate 60 mg extended release oral tablet (12 sources) Nitrate Vasodilator Start: 04-13-2024 isosorbide mononitrate 60 mg oral tablet, extended release Dose : 60 mg = 1 tab(s), Oral, qAM, # 30 tab(s), 5 Refill(s), Pharmacy: [facility], 157.8, cm, 04/04/24 13:59:00 EDT, Height, kg, 04/04/24 13:59:00 EDT, Dosing Weight Start Date: 04/13/24 Status: Ordered Start: 2021 isosorbide mon onitrate 60 mg oral tablet, extended release Dose : 60 mg = 1 tab(s), Oral, qAM, # 30 tab(s), 5 Refill(s), [id number] 157.7, cm, 11/30/21 10:22:00 EST, Height, kg, 11/30/21 10:22:00 EST, Dosing Weight Start Date: 11/30/21 Status: Ordered Start: 05-22-2020 isosorbide mon onitrate 30 mg oral tablet, extended release Dose : 30 mg = 1 tab(s), Oral, qAM, # 30 tab(s), 5 Refill(s), [id number], 157.3, cm, 05/15/20 13:10:00 EDT, Height, kg, 05/15/20 13:10:00 EDT, Dosing Weight Start Date: 05/22/20 Status: Ordered Lopressor 25mg--USE metoprolol tartrate 25 mg oral tablet (8 sources) Start: 04-13-2024 take 1 tablet by mouth twice daily Lopressor 25mg--USE metoprolol tartrate 25 mg oral tablet 1 tab(s), Oral, BID, # 60 tab(s), 11 Refill(s), Pharmacy: [facility], 157.8, cm, 04/04/24 13:59:00 EDT, Height, kg, 04/04/24 13:59:00 EDT, Dosing Weight Start Date: 04/13/24 Status: Ordered Start: 06-21-2022 take 1 tablet by bogdan th twice daily Lopressor 25mg--USE metoprolol tartrate 25 mg oral tablet 1 tab(s), Oral, BID, # 60 tab(s), 11 Refill(s), Pharmacy: [facility] [id number], 157.5, cm, 06/08/22 8:01:00 EDT, Height, kg, 06/08/22 8:01:00 EDT, Dosing Weight Start Date: 06/21/22 Status: Ordered loratadine 10 mg oral tablet (6 sources) Start: 03-26-2021 Claritin 10 mg oral tablet Dose : 10 mg = 1 tab(s), Oral, qDay, # 90 tab(s), 1 Refill(s), [id number], 157.5, cm, 03/26/21 10:22:00 EDT, Height, kg, 03/26/21 10:22:00 EDT, Dosing Weight Start Date: 03/26/21 Status: Ordered Medrol Dosepak 4 mg oral tablet (1 source) Start: 10-30-2021 End: 11-05-2021 Medrol Dosepak 4 mg oral tablet Per Dosepak Instructions, Oral, Daily, as directed on package labeling, X 6 day(s), # 1 packet(s), 0 Refill(s), 11/05/21 10:25:00 EST, [id number], Left wrist pain, 157.1, cm, 10/30/21 9:39:00 EST, Height, kg, 10/30/21 9:39:00 EST, Do... Start Date: 10/30/21 Stop Date: 11/05/21 Status: Ordered meloxicam 15 mg oral tablet (2 sources) Nonsteroidal Anti-inflammatory Drug Start: 07-11-2024 End: 07-25-2024 Mobic 15 mg oral tablet Dose : 15 mg = 1 tab(s), Oral, qDay, # 14 tab(s), 0 Refill(s), [id number], 157, cm, 07/11/24 7:45:00 EDT, Height, kg, 07/11/24 7:45:00 EDT, Dosing Weight Start Date: 07/11/24 Stop Date: 07/25/24 Status: Ordered Start: 11-24-2023 End: 12-08-2023 meloxicam 7.5 mg oral tablet Dose : 7.5 mg = 1 tab(s), Oral, qDay, # 14 tab(s), 0 Refill(s), [id number], 155, cm, 11/24/23 10:14:00 EST, Height, kg, 11/24/23 10:14:00 EST, Dosing Weight Start Date: 11/24/23 Stop Date: 12/08/23 Status: Ordered metoprolol tartrate 25 mg oral tablet (4 sources) beta-Adrenergic Roberth Start: 05-27-2022 metopr olol tartrate 25 mg oral tablet Dose : 25 mg = 1 tab(s), Oral, BID, # 60 tab(s), 11 Refill(s), Pharmacy: [facility]/pharmacy #[id number], 157, cm, 05/27/22 10:51:00 EDT, Height, kg, 05/27/22 10:51:00 EDT, Dosing Weight Start Date: 05/27/22 Status: Ordered Start: 02-02-2021 metoprolol tar trate 25 mg oral tablet Dose : 25 mg = 1 tab(s), Oral, BID, # 60 tab(s), 5 Refill(s), [id number], 157.5, cm, 01/21/21 13:48:00 EST, Height, kg, 01/21/21 13:48:00 EST, Dosing Weight Start Date: 02/02/21 Status: Ordered omeprazole 20 mg delayed release oral capsule (5 sources) Proton Pump Inhibitor Start: 04-26-2024 omeprazo le 20 mg oral delayed release capsule Dose : 20 mg = 1 cap(s), Oral, qDay, # 90 cap(s), 1 Refill(s), Pharmacy: [facility], 157.8, cm, 04/04/24 13:59:00 EDT, Height, kg, 04/04/24 13:59:00 EDT, Dosing Weight Start Date: 04/26/24 Status: Ordered Start: 06-29-2021 omeprazole 20 mg oral delayed release tablet Dose : 20 mg = 1 tab(s), Oral, qDay, # 30 tab(s), 0 Refill(s), Pharmacy: [facility]/pharmacy #[id number], GERD with esophagitis, 157.1, cm, 06/29/21 14:31:00 EDT, Height, kg, 06/29/21 14:31:00 EDT, Dosing Weight Start Date: 06/29/21 Status: Ordered omeprazole 20 mg oral delayed release tablet (2 sources) Start: 06-29-2021 omeprazole 20 mg oral delayed release tablet Dose : 20 mg = 1 tab(s), Oral, qDay, # 30 tab(s), 0 Refill(s), [id number], GERD with esophagitis, 157.1, cm, 06/29/21 14:31:00 EDT, Height, kg, 06/29/21 14:31:00 EDT, Dosing Weight Start Date: 06/29/21 Status: Ordered rosuvastatin calcium 40 mg oral tablet (7 sources) HMG-CoA Reductase Inhibitor Start: 04-13-2024 take 1 tablet by mouth once daily rosuvastatin 40 mg oral tablet 1 tab(s), Oral, qDay, # 100 tab(s), 3 Refill(s), Pharmacy: [facility], 157.8, cm, 04/04/24 13:59:00 EDT, Height, kg, 04/04/24 13:59:00 EDT, Dosing Weight Start Date: 04/13/24 Status: Ordered Start: 07-05-2023 take 1 tablet by bogdan th once daily rosuvastatin 40 mg oral tablet 1 tab(s), Oral, qDay, # 100 tab(s), 3 Refill(s), [id number] 155, cm, 06/09/23 10:10:00 EDT, Height, kg, 06/09/23 10:10:00 EDT, Dosing Weight Start Date: 07/05/23 Status: Ordered simvastatin 40 mg oral tablet (5 sources) HMG-CoA Reductase Inhibitor Start: 06-15-2021 simvastatin 40 mg oral tablet Dose : 40 mg = 1 tab(s), Oral, qHS, # 30 tab(s), 11 Refill(s), Pharmacy: [facility]/pharmacy #[id number], 157.1, cm, 06/10/21 13:45:00 EDT, Height, kg, 06/10/21 13:45:00 EDT, Dosing Weight Start Date: 06/15/21 Status: Ordered Splint, wrist (2 sources) Start: 10-30-2021 Splint, wrist See Instructions, pt given medium left wrist splint in office, # 1 EA, 0 Refill(s), samples given to patient (Rx), Left wrist pain, 72.2 Start Date: 10/30/21 Status: Ordered Symbicort 80 mcg-4.5 mcg/inh Inhaler (1 source) Start: 04-13-2024 take 1 dose by inhalation twice daily Symbicort 80 mcg-4.5 mcg/inh Inhaler Dose = 2 puff(s), Inhalation, BID, # 10.2 gram(s), 1 Refill(s), Pharmacy: [facility], 157.8, cm, 04/04/24 13:59:00 EDT, Height, kg, 04/04/24 13:59:00 EDT, Dosing Weight Start Date: 04/13/24 Status: Ordered Completed/Discontinued Medications Medication Drug Class(es) Dates Sig (Normalized) Sig (Original) diphenhydrAMINE / phenylephrine (5 sources) Histamine-1 Receptor Antagonist, alpha-1 Adrenergic Agonist take 1 tablet by mouth once daily RA ALLERGY PLUS SINUS TABS One tablet by mouth daily DIPHENHYDRAMINE- PHENYLEPHRINE TABS [id number] Ashley Bear predniSONE 10 mg oral tablet (6 sources) Corticosteroid Start: 06-09-2023 End: 06-15-2023 prednisone 10mg tab (TAPER) Taper 49-86-53-30-20-1 0 x 1 day, Oral, qAM, # 21 tab(s), 0 Refill(s), Pharmacy: [facility]/pharmacy #[id number], Carpal tunnel syndrome, right, 155, cm, 06/09/23 10:10:00 EDT, Height, kg, 06/09/23 10:10:00 EDT, Dosing Weight Start Date: 06/09/23 Stop Date: 06/15/23 Status: Ordered PREDNISONE 20 MG TABS 2 tabs every day for 5 days PREDNISONE [id number] Ashley Bear Problems Active Problems Problem Classification Problem Date Documented Date Episodic/Chronic Asthma (13 sources) Asthma; Translations: [Unspecified asthma, uncomplicated] Onset: 04-05-2024 02-27-2014 Chronic Biliary tract disease (2 sources) Gallstone 12-27-2020 Episodic Coronary atherosclerosis and other heart disease (12 sources) Coronary arteriosclerosis 05-01-2020 Chronic Coronary atherosclerosis and other heart disease (12 sources) Patient post percutaneous transluminal coronary angioplasty 07-02-2020 Episodic Diseases of white blood cells (1 source) Leukocytosis; Translations: [Elevated white blood cell count, unspecified] Onset: 04-05-2024 Chronic Disorders of lipid metabolism (20 sources) Hyperlipidemia 02-27-2014 Chronic Essential hypertension (13 sources) Hypertensive disorder; Translations: [Essential hypertension] Onset: 04-05-2024 10-17-2020 Chronic Malaise and fatigue (12 sources) Fatigue 04-01-2020 Episodic Nonspecific chest pain (12 sources) Chest pain 04-01-2020 Episodic Osteoarthritis (12 sources) Osteoarthritis of knee 04-03-2021 Chronic Other non-traumatic joint disorders (9 sources) Arthritis of knee 03-25-2022 Chronic Other non-traumatic joint disorders (11 sources) Pain in wrist 01-02-2022 Episodic Other non-traumatic joint disorders (1 source) Knee pain 07-11-2024 Episodic Other non-traumatic joint disorders (1 source) Unstable knee 07-11-2024 Episodic Residual codes; unclassified (13 sources) Obstructive sleep apnea syndrome; Translations: [Obstructive sleep apnea (adult) (pediatric)] Onset: 04-05-2024 05-01-2020 Chronic Residual codes; unclassified (12 sources) Postoperative state 01-28-2021 Episodic Residual codes; unclassified (12 sources) Uterine cervix absent 03-26-2021 Episodic Unclassified (1 source) No current problems or disability 08-01-2017 Unclassified (1 source) Aftercare ; Translations: [Encounter for other specified surgical aftercare] Onset: 08-25-2017 10-01-2017 Unclassified (7 sources) Vaccination needed 08-25-2023 Past or Other Problems [...] Results Test Name Value Interpretation Reference Range Facility XR KNEE THREE VIEWS RIGHTon 07-11-2024 XR KNEE THREE VIEWS RIGHT ORIGINAL EXAMINATION: THREE XRAY VIEWS OF THE RIGHT KNEE07/11/2024 8:38 am COMPARISON: November 13, 2018 HISTORY: ORDERING SYSTEM PROVIDED HISTORY: Reason for Exam: right knee instability IMPRESSION: No acute fracture or dislocation. Mild tricompartmental osteoarthritis. Quadriceps enthesopathy. No significant knee joint effusion. Nonspecific subtle area of increased lucency best appreciated on lateral view of the patella measuring 6 mm, possibly related to focal osteopenia, subchondral cystic change. Interpreted by: Swathi Osman Preliminary Report By: Bruce Sagastume MD Electronically signed By Swathi Osman Dictated Date: 07/11/2024 8:40:23 AM Prelim Date: 07/11/2024 11:15:04 AM Sign Date: 07/11/2024 11:15:04 AM Ordering Provider: ALPHONSO Gipson Count Includes [facility] ([place]) .Auto Diffon 04-05-2024 Basophil, Absolute 0.0 10 3/mcL Normal 0.0-0.2 [facility] ([place]) Comment on above: Performed By: #### A DIFF, CBC, ANEU #### [address] [address] Basophils/100 WBC (Bld) 0.1 % Normal 0.0-2.5 Count Includes [facility] ([place]) Comment on above: Performed By: #### A DIFF, CBC, ANEU #### [address] [address] Eosinophil, Absolute 0.0 10 3/mcL Normal 0.0-0.4 [facility] ([place]) Comment on above: Performed By: #### A DIFF, CBC, ANEU #### [address] [address] Eosinophils/100 WBC (Bld) 0.0 % Normal 0.0-7.0 Count Includes [facility] ([place]) Comment on above: Performed By: #### A DIFF, CBC, ANEU #### [address] [address] Lymphocyte, Absolute 1.7 10 3/mcL Normal 0.8-3.9 [facility] ([place]) Comment on above: Performed By: #### A DIFF, CBC, ANEU #### [address] [address] Lymphocytes/100 WBC (Bld) 8.7 % Low 10.0-50.0 Count Includes [facility] ([place]) Comment on above: Performed By: #### A DIFF, CBC, ANEU #### [address] [address] Monocyte, Absolute 2.0 10 3/mcL High 0.2-1.0 [facility] ([place]) Comment on above: Performed By: #### A DIFF, CBC, ANEU #### [address] [address] Monocytes/100 WBC (Bld) 10.1 % Normal 1.7-13.0 Count Includes [facility] ([place]) Comment on above: Performed By: #### A DIFF, CBC, ANEU #### [address] [address] Neutrophils/100 WBC (Bld) 81.1 % High 37.0-80.0 Count Includes [facility] ([place]) Comment on above: Performed By: #### A DIFF, CBC, ANEU #### [address] [address] .GFRon 04-05-2024 GFR 78 ml/min/1.73sqm Normal Count Includes [facility] ([place]) Comment on above: Result Comment: GFR Population mean for , Non- Americans Ages 20-29 = 116 mL/min/1.73 sq.m. Ages 30-39 = 107 mL/min/1.73 sq.m. Ages 40-49 = 99 mL/min/1.73 sq.m. Ages 50-59 = 93 mL/min/1.73 sq.m. Ages 60-69 = 85 mL/min/1.73 sq.m. Ages 70+ = 75 mL/min/1.73 sq.m. Chronic Kidney Disease: Less than 60 mL/min/1.73 square meters End Stage Renal Disease: Less than 15 mL/min/1.73 square meters Performed By: #### A DIFF, CBC, ANEU #### [address] [address] GFR Non- 65 ml/min/1.73sqm Normal Count Includes [facility] ([place]) Comment on above: Result Comment: GFR Population mean for , Non- Americans Ages 20-29 = 116 mL/min/1.73 sq.m. Ages 30-39 = 107 mL/min/1.73 sq.m. Ages 40-49 = 99 mL/min/1.73 sq.m. Ages 50-59 = 93 mL/min/1.73 sq.m. Ages 60-69 = 85 mL/min/1.73 sq.m. Ages 70+ = 75 mL/min/1.73 sq.m. Chronic Kidney Disease: Less than 60 mL/min/1.73 square meters End Stage Renal Disease: Less than 15 mL/min/1.73 square meters Performed By: #### A DIFF, CBC, ANEU #### [address] [address] .NEUABSon 04-05-2024 Neutrophil, Absolute 15.9 10 3/mcL High 2.9-6.2 A [facility] ([place]) Comment on above: Performed By: #### A DIFF, CBC, ANEU #### [address] [address] BMPon 04-05-2024 BUN/Creatinine Ratio 9 ratio Normal 7-27 [facility] ([place]) Comment on above: Performed By: #### A DIFF, CBC, ANEU #### [address] [address] Calcium [Mass/Vol] 8.6 mg/dL Normal 8.4-10.2 [facility] ([place]) Comment on above: Performed By: #### A DIFF, CBC, ANEU #### [address] [address] Chloride [Moles/Vol] 107 mmol/L Normal 98-107 [facility] ([place]) Comment on above: Performed By: #### A DIFF, CBC, ANEU #### [address] [address] CO2 [Moles/Vol] 27 mmol/L Normal 22-29 [facility] ([place]) Comment on above: Performed By: #### A DIFF, CBC, ANEU #### [address] [address] Creatinine [Mass/Vol] 0.90 mg/dL Normal 0.55-1.02 [facility] ([place]) Comment on above: Performed By: #### A DIFF, CBC, ANEU #### [address] [address] Electrolyte Balance 9.0 mEq/L Normal 4.0-15.0 [facility] ([place]) Comment on above: Performed By: #### A DIFF, CBC, ANEU #### [address] [address] Glucose [Mass/Vol] 126 mg/dL High 70-105 [facility] ([place]) Comment on above: Performed By: #### A DIFF, CBC, ANEU #### [address] [address] Potassium [Moles/Vol] 4.1 mmol/L Normal 3.5-5.1 [facility] ([place]) Comment on above: Performed By: #### A DIFF, CBC, ANEU #### [address] [address] Sodium [Moles/Vol] 143 mmol/L Normal 136-145 [facility] ([place]) Comment on above: Performed By: #### A DIFF, CBC, ANEU #### [address] [address] Urea nitrogen [Mass/Vol] 8 mg/dL Normal 7-18 Count Includes [facility] ([place]) Comment on above: Performed By: #### A DIFF, CBC, ANEU #### [address] [address] CBCon 04-05-2024 Erythrocyte distribution width (RBC) [Ratio] 13.7 % Normal 11.5-14.5 Count Includes [facility] ([place]) Comment on above: Performed By: #### A DIFF, CBC, ANEU #### [address] [address] Hematocrit (Bld) [Volume fraction] 33.5 % Low 37.0-47.0 Count Includes [facility] ([place]) Comment on above: Performed By: #### A DIFF, CBC, ANEU #### [address] [address] Hgb 11.6 G/dL Low 12.0-16.0 Count Includes [facility] ([place]) Comment on above: Performed By: #### A DIFF, CBC, ANEU #### [address] [address] MCH (RBC) [Entitic mass] 28.9 pg Normal 27.0-31.2 Count Includes [facility] ([place]) Comment on above: Performed By: #### A DIFF, CBC, ANEU #### [address] [address] MCHC 34.6 G/dL Normal 33.0-37.0 Count Includes [facility] ([place]) Comment on above: Performed By: #### A DIFF, CBC, ANEU #### [address] [address] MCV (RBC) [Entitic vol] 83.4 fL Normal 80.0-94.0 Count Includes [facility] ([place]) Comment on above: Performed By: #### A DIFF, CBC, ANEU #### [address] [address] Platelet 308 10 3/mcL Normal 130-400 [facility] ([place]) Comment on above: Performed By: #### A DIFF, CBC, ANEU #### [address] [address] Platelet mean volume (Bld) [Entitic vol] 8.0 fL Normal 7.4-10.4 [facility] ([place]) Comment on above: Performed By: #### A DIFF, CBC, ANEU #### [address] [address] RBC 4.02 10 6/mcL Low 4.20-5.40 [facility] ([place]) Comment on above: Performed By: #### A DIFF, CBC, ANEU #### [address] [place], [place] [address] WBC 19.6 10 3/mcL High 4.6-10.8 [facility] ([place]) Comment on above: Performed By: #### A DIFF, CBC, ANEU #### [address] [place], [place] [address] LABORATORYOrdered By: SYSTEM SYSTEM on 04-05-2024 Basophil, Absolute 0.0 103/mcL Normal 0.0 - 0.2 10^3/mcL AO Workflow SS Basophils/100 WBC (Bld) 0.1 % Normal 0.0 - 2.5 % AO Workflow SS Calcium [Mass/Vol] 8.6 mg/dL Normal 8.4 - 10. 2 mg/dL AO ADM SS Chloride [Moles/Vol] 107 mmol/L Normal 98 - 10 7 mmol/L AO ADM SS CO2 [Moles/Vol] 27 mmol/L Normal 22 - 29 mmol/L AO ADM SS Creatinine [Mass/Vol] 0.90 mg/dL Normal 0.55 - 1.02 mg/dL AO ADM SS Electrolyte Balance 9.0 mEq/L Normal 4.0 - 15 .0 mEq/L AO ADM SS Eosinophil, Absolute 0.0 103/mcL Normal 0.0 - 0 .4 10^3/mcL AO Workflow SS Eosinophils/100 WBC (Bld) 0.0 % Normal 0.0 - 7.0 % AO Workflow SS Erythrocyte distribution width (RBC) [Ratio] 13.7 % Normal 11.5 - 14.5 % AO Workflow SS GFR/1.73 sq M.predicted among blacks MDRD (S/P/Bld) [Vol rate/Area] 78 ml/min/1.73sqm Invalid Interpretation Code AO Chemistry S Comment on above: Interpretive Data: GFR Population mean for , Non- Americans Ages 20-29 = 116 mL/min/1.73 sq.m. Ages 30-39 = 107 mL/min/1.73 sq.m. Ages 40-49 = 99 mL/min/1.73 sq.m. Ages 50-59 = 93 mL/min/1.73 sq.m. Ages 60-69 = 85 mL/min/1.73 sq.m. Ages 70+ = 75 mL/min/1.73 sq.m. Chronic Kidney Disease: Less than 60 mL/min/1.73 square meters End Stage Renal Disease: Less than 15 mL/min/1.73 square meters GFR/1.73 sq M.predicted among non-blacks MDRD (S/P/Bld) [Vol rate/Area] 65 ml/min/1.73sqm Invalid Interpretation Code AO Chemistry S Comment on above: Interpretive Data: GFR Population mean for , Non- Americans Ages 20-29 = 116 mL/min/1.73 sq.m. Ages 30-39 = 107 mL/min/1.73 sq.m. Ages 40-49 = 99 mL/min/1.73 sq.m. Ages 50-59 = 93 mL/min/1.73 sq.m. Ages 60-69 = 85 mL/min/1.73 sq.m. Ages 70+ = 75 mL/min/1.73 sq.m. Chronic Kidney Disease: Less than 60 mL/min/1.73 square meters End Stage Renal Disease: Less than 15 mL/min/1.73 square meters Glucose [Mass/Vol] 126 mg/dL High 70 - 105 mg/dL AO ADM SS Hematocrit (Bld) [Volume fraction] 33.5 % Low 37.0 - 47.0 % AO Workflow SS Hemoglobin (Bld) [Mass/Vol] 11.6 G/dL Low 12.0 - 16.0 G/dL AO Workflow SS Lymphocyte, Absolute 1.7 103/mcL Normal 0.8 - 3 .9 10^3/mcL AO Workflow SS Lymphocytes/100 WBC (Bld) 8.7 % Low 10.0 - 50.0 % AO Workflow SS MCH (RBC) [Entitic mass] 28.9 pg Normal 27.0 - 31.2 pg AO Workflow SS MCHC 34.6 G/dL Normal 33.0 - 37.0 G/dL AO Workflow SS MCV (RBC) [Entitic vol] 83.4 fL Normal 80.0 - 94.0 fL AO Workflow SS Monocyte, Absolute 2.0 103/mcL High 0.2 - 1.0 10^3/mcL AO Workflow SS Monocytes/100 WBC (Bld) 10.1 % Normal 1.7 - 13.0 % AO Workflow SS Neutrophil, Absolute 15.9 103/mcL High 2.9 - 6 .2 10^3/mcL AO Workflow SS Neutrophils/100 WBC (Bld) 81.1 % High 37.0 - 80.0 % AO Workflow SS Platelet mean volume (Bld) [Entitic vol] 8.0 fL Normal 7.4 - 10.4 fL AO Workflow SS Platelets (Bld) [#/Vol] 308 103/mcL Normal 130 - 400 10^3/mcL AO Workflow SS Potassium [Moles/Vol] 4.1 mmol/L Normal 3.5 - 5.1 mmol/L AO ADM SS RBC (Bld) [#/Vol] 4.02 106/mcL Low 4.20 - 5.4 0 10^6/mcL AO Workflow SS Sodium [Moles/Vol] 143 mmol/L Normal 136 - 145 mmol/L AO ADM SS Urea nitrogen [Mass/Vol] 8 mg/dL Normal 7 - 18 mg/dL AO ADM SS Urea nitrogen/Creatinine [Mass ratio] 9 ratio Normal 7 - 27 ratio AO ADM SS WBC (Bld) [#/Vol] 19.6 103/mcL High 4.6 - 10.8 10^3/mcL AO Workflow SS XR FLUORO 1-2 HRS TECH TIMEo n 04-04-2024 XR FLUORO 1-2 HRS TECH TIME ORIGINAL Images acquired, not reported on this accession number. Normal Count Includes [facility] ([place]) APTTon 03-26-2024 aPTT Coag (Bld) [Time] 30.9 s Normal 25.0-35.0 Count Includes [facility] ([place]) Comment on above: Result Comment: For Heparin anticoagulation therapy, the recommended therapeutic range is: 50.6-87.4 seconds. Patients on heparin therapy may have an extreme result. Performed By: #### A DIFF, CBC, ANEU #### [address] [address] Heparin dose (APTT) Unknown Normal [facility] ([place]) Comment on above: Performed By: #### A DIFF, CBC, ANEU #### [address] [address] PROon 03-26-2024 PT Coag (PPP) [Time] 11.4 s Normal 9.0-14.4 [facility] ([place]) Comment on above: Performed By: #### A DIFF, CBC, ANEU #### [address] [address] PT International Ratio 1.0 Normal Count Includes [facility] ([place]) Comment on above: Result Comment: [employer] (CHEST, 1992, 102:312S-25S) recommended therapeutic range for oral anticoagulant therapy is: LOW RISK: Prophylaxis of venous thrombosis INR: 2.0-3.0 Treatment of pulmonary embolism 2.0-3.0 Prevention of systemic embolism 2.0-3.0 HIGH RISK: Mechanical prosthetic valves 2.5-3.5 Performed By: #### A DIFF, CBC, ANEU #### [address] [address] XR CHEST 2 VIEWSon XR CHEST 2 VIEWS ORIGINAL EXAMINATION: TWO XRAY VIEWS OF THE CHEST 03/22/2024 9:28 am COMPARISON: Chest x-ray on 02/13/2024 HISTORY: ORDERING SYSTEM PROVIDED HISTORY: Reason for Exam: Pre-admission testing FINDINGS: The heart size and mediastinal contours are normal. There is no lung infiltrate or edema. No pneumothorax or pleural fluid is present. The skeletal structures are unremarkable. IMPRESSION: No acute cardiopulmonary process. Interpreted by: Chris Knowles MD Preliminary Report By: Chris Knowles MD Electronically signed By Chris Knowles MD Dictated Date: 03/23/2024 1:54:08 AM Prelim Date: 03/23/2024 1:55:35 AM Sign Date: 03/23/2024 1:55:35 AM Ordering Provider: VIKTOR BARAKAT Normal Count Includes [facility] ([place]) .Auto Diffon 03-22-2024 Basophil, Absolute 0.1 10 3/mcL Normal 0.0-0.2 [facility] ([place]) Comment on above: Performed By: #### G FR, BMP, CBC, ADIFF, ANEU #### [address] [address] Basophils/100 WBC (Bld) 1.0 % Normal 0.0-2.5 Count Includes [facility] ([place]) Comment on above: Performed By: #### G FR, BMP, CBC, ADIFF, ANEU #### [address] [address] Eosinophil, Absolute 0.6 10 3/mcL High 0.0-0.4 [facility] ([place]) Comment on above: Performed By: #### G FR, BMP, CBC, ADIFF, ANEU #### [address] [address] Eosinophils/100 WBC (Bld) 8.7 % High 0.0-7.0 Count Includes [facility] ([place]) Comment on above: Performed By: #### G FR, BMP, CBC, ADIFF, ANEU #### [address] [address] Lymphocyte, Absolute 1.9 10 3/mcL Normal 0.8-3.9 [facility] ([place]) Comment on above: Performed By: #### G FR, BMP, CBC, ADIFF, ANEU #### [address] [address] Lymphocytes/100 WBC (Bld) 27.1 % Normal 10.0-50.0 Count Includes [facility] ([place]) Comment on above: Performed By: #### G FR, BMP, CBC, ADIFF, ANEU #### [address] [address] Monocyte, Absolute 0.8 10 3/mcL Normal 0.2-1.0 [facility] ([place]) Comment on above: Performed By: #### G FR, BMP, CBC, ADIFF, ANEU #### [address] [address] Monocytes/100 WBC (Bld) 11.6 % Normal 1.7-13.0 Count Includes [facility] ([place]) Comment on above: Performed By: #### G FR, BMP, CBC, ADIFF, ANEU #### [address] [address] Neutrophils/100 WBC (Bld) 51.6 % Normal 37.0-80.0 Count Includes [facility] ([place]) Comment on above: Performed By: #### G FR, BMP, CBC, ADIFF, ANEU #### [address] [address] .GFRon 03-22-2024 GFR 81 ml/min/1.73sqm Normal Count Includes [facility] ([place]) Comment on above: Result Comment: GFR Population mean for , Non- Americans Ages 20-29 = 116 mL/min/1.73 sq.m. Ages 30-39 = 107 mL/min/1.73 sq.m. Ages 40-49 = 99 mL/min/1.73 sq.m. Ages 50-59 = 93 mL/min/1.73 sq.m. Ages 60-69 = 85 mL/min/1.73 sq.m. Ages 70+ = 75 mL/min/1.73 sq.m. Chronic Kidney Disease: Less than 60 mL/min/1.73 square meters End Stage Renal Disease: Less than 15 mL/min/1.73 square meters Performed By: #### G FR, BMP, CBC, ADIFF, ANEU #### [address] [address] GFR Non- 67 ml/min/1.73sqm Normal Count Includes [facility] ([place]) Comment on above: Result Comment: GFR Population mean for , Non- Americans Ages 20-29 = 116 mL/min/1.73 sq.m. Ages 30-39 = 107 mL/min/1.73 sq.m. Ages 40-49 = 99 mL/min/1.73 sq.m. Ages 50-59 = 93 mL/min/1.73 sq.m. Ages 60-69 = 85 mL/min/1.73 sq.m. Ages 70+ = 75 mL/min/1.73 sq.m. Chronic Kidney Disease: Less than 60 mL/min/1.73 square meters End Stage Renal Disease: Less than 15 mL/min/1.73 square meters Performed By: #### G FR, BMP, CBC, ADIFF, ANEU #### [address] [address] .NEUABSon 03-22-2024 Neutrophil, Absolute 3.5 10 3/mcL Normal 2.9-6.2 [facility] ([place]) Comment on above: Performed By: #### G FR, BMP, CBC, ADIFF, ANEU #### [address] [address] BMPon 03-22-2024 BUN/Creatinine Ratio 9 ratio Normal 7-27 [facility] ([place]) Comment on above: Performed By: #### G FR, BMP, CBC, ADIFF, ANEU #### [address] [address] Calcium [Mass/Vol] 8.7 mg/dL Normal 8.4-10.2 [facility] ([place]) Comment on above: Performed By: #### G FR, BMP, CBC, ADIFF, ANEU #### [address] [address] Chloride [Moles/Vol] 105 mmol/L Normal 98-107 [facility] ([place]) Comment on above: Performed By: #### G FR, BMP, CBC, ADIFF, ANEU #### [address] [address] CO2 [Moles/Vol] 29 mmol/L Normal 22-29 [facility] ([place]) Comment on above: Performed By: #### G FR, BMP, CBC, ADIFF, ANEU #### [address] [address] Creatinine [Mass/Vol] 0.87 mg/dL Normal 0.55-1.02 [facility] ([place]) Comment on above: Performed By: #### G FR, BMP, CBC, ADIFF, ANEU #### [address] [address] Electrolyte Balance 9.0 mEq/L Normal 4.0-15.0 [facility] ([place]) Comment on above: Performed By: #### G FR, BMP, CBC, ADIFF, ANEU #### [address] [address] Glucose [Mass/Vol] 91 mg/dL Normal 70-105 [facility] ([place]) Comment on above: Performed By: #### G FR, BMP, CBC, ADIFF, ANEU #### [address] [address] Potassium [Moles/Vol] 3.9 mmol/L Normal 3.5-5.1 [facility] ([place]) Comment on above: Performed By: #### G FR, BMP, CBC, ADIFF, ANEU #### [address] [address] Sodium [Moles/Vol] 143 mmol/L Normal 136-145 [facility] ([place]) Comment on above: Performed By: #### G FR, BMP, CBC, ADIFF, ANEU #### [place] [id number] Urea nitrogen [Mass/Vol] 8 mg/dL Normal 7-18 Count Includes [facility] ([place]) Comment on above: Performed By: #### G FR, BMP, CBC, ADIFF, ANEU #### [address] [address] CBCon 03-22-2024 Erythrocyte distribution width (RBC) [Ratio] 14.5 % Normal 11.5-14.5 Count Includes [facility] ([place]) Comment on above: Order Comment: Pre-A dmission Testing Performed By: #### G FR, BMP, CBC, ADIFF, ANEU #### [address] [address] Hematocrit (Bld) [Volume fraction] 38.8 % Normal 37.0-47.0 Count Includes [facility] ([place]) Comment on above: Order Comment: Pre-A dmission Testing Performed By: #### G FR, BMP, CBC, ADIFF, ANEU #### [address] [address] Hgb 13.1 G/dL Normal 12.0-16.0 Count Includes [facility] ([place]) Comment on above: Order Comment: Pre-A dmission Testing Performed By: #### G FR, BMP, CBC, ADIFF, ANEU #### [address] [address] MCH (RBC) [Entitic mass] 29.1 pg Normal 27.0-31.2 Count Includes [facility] ([place]) Comment on above: Order Comment: Pre-A dmission Testing Performed By: #### G FR, BMP, CBC, ADIFF, ANEU #### [address] [address] MCHC 33.7 G/dL Normal 33.0-37.0 Count Includes [facility] ([place]) Comment on above: Order Comment: Pre-A dmission Testing Performed By: #### G FR, BMP, CBC, ADIFF, ANEU #### [address] [address] MCV (RBC) [Entitic vol] 86.3 fL Normal 80.0-94.0 Count Includes [facility] ([place]) Comment on above: Order Comment: Pre-A dmission Testing Performed By: #### G FR, BMP, CBC, ADIFF, ANEU #### [address] [address] Platelet 306 10 3/mcL Normal 130-400 [facility] ([place]) Comment on above: Order Comment: Pre-A dmission Testing Performed By: #### G FR, BMP, CBC, ADIFF, ANEU #### [address] [address] Platelet mean volume (Bld) [Entitic vol] 7.3 fL Low 7.4-10.4 [facility] ([place]) Comment on above: Order Comment: Pre-A dmission Testing Performed By: #### G FR, BMP, CBC, ADIFF, ANEU #### [address] [address] RBC 4.49 10 6/mcL Normal 4.20-5.40 [facility] ([place]) Comment on above: Order Comment: Pre-A dmission Testing Performed By: #### G FR, BMP, CBC, ADIFF, ANEU #### [address] [address] WBC 6.8 10 3/mcL Normal 4.6-10.8 [facility] ([place]) Comment on above: Order Comment: Pre-A dmission Testing Performed By: #### G FR, BMP, CBC, ADIFF, ANEU #### [place] [address] [place] [address] LABORATORYOrdered By: SYSTEM SYSTEM on 03-22-2024 Basophil, Absolute 0.1 103/mcL Normal 0.0 - 0.2 10^3/mcL AO Workflow SS Basophils/100 WBC (Bld) 1.0 % Normal 0.0 - 2.5 % AO Workflow SS Calcium [Mass/Vol] 8.7 mg/dL Normal 8.4 - 10. 2 mg/dL AO ADM SS Chloride [Moles/Vol] 105 mmol/L Normal 98 - 10 7 mmol/L AO ADM SS CO2 [Moles/Vol] 29 mmol/L Normal 22 - 29 mmol/L AO ADM SS Creatinine [Mass/Vol] 0.87 mg/dL Normal 0.55 - 1.02 mg/dL AO ADM SS Electrolyte Balance 9.0 mEq/L Normal 4.0 - 15 .0 mEq/L AO ADM SS Eosinophil, Absolute 0.6 103/mcL High 0.0 - 0 .4 10^3/mcL AO Workflow SS Eosinophils/100 WBC (Bld) 8.7 % High 0.0 - 7.0 % AO Workflow SS Erythrocyte distribution width (RBC) [Ratio] 14.5 % Normal 11.5 - 14.5 % AO Workflow SS GFR/1.73 sq M.predicted among blacks MDRD (S/P/Bld) [Vol rate/Area] 81 ml/min/1.73sqm Invalid Interpretation Code AO Chemistry S Comment on above: Interpretive Data: GFR Population mean for , Non- Americans Ages 20-29 = 116 mL/min/1.73 sq.m. Ages 30-39 = 107 mL/min/1.73 sq.m. Ages 40-49 = 99 mL/min/1.73 sq.m. Ages 50-59 = 93 mL/min/1.73 sq.m. Ages 60-69 = 85 mL/min/1.73 sq.m. Ages 70+ = 75 mL/min/1.73 sq.m. Chronic Kidney Disease: Less than 60 mL/min/1.73 square meters End Stage Renal Disease: Less than 15 mL/min/1.73 square meters GFR/1.73 sq M.predicted among non-blacks MDRD (S/P/Bld) [Vol rate/Area] 67 ml/min/1.73sqm Invalid Interpretation Code AO Chemistry S Comment on above: Interpretive Data: GFR Population mean for , Non- Americans Ages 20-29 = 116 mL/min/1.73 sq.m. Ages 30-39 = 107 mL/min/1.73 sq.m. Ages 40-49 = 99 mL/min/1.73 sq.m. Ages 50-59 = 93 mL/min/1.73 sq.m. Ages 60-69 = 85 mL/min/1.73 sq.m. Ages 70+ = 75 mL/min/1.73 sq.m. Chronic Kidney Disease: Less than 60 mL/min/1.73 square meters End Stage Renal Disease: Less than 15 mL/min/1.73 square meters Glucose [Mass/Vol] 91 mg/dL Normal 70 - 105 mg/dL AO ADM SS Hematocrit (Bld) [Volume fraction] 38.8 % Normal 37.0 - 47.0 % AO Workflow SS Hemoglobin (Bld) [Mass/Vol] 13.1 G/dL Normal 12.0 - 16.0 G/dL AO Workflow SS Lymphocyte, Absolute 1.9 103/mcL Normal 0.8 - 3 .9 10^3/mcL AO Workflow SS Lymphocytes/100 WBC (Bld) 27.1 % Normal 10.0 - 50.0 % AO Workflow SS MCH (RBC) [Entitic mass] 29.1 pg Normal 27.0 - 31.2 pg AO Workflow SS MCHC 33.7 G/dL Normal 33.0 - 37.0 G/dL AO Workflow SS MCV (RBC) [Entitic vol] 86.3 fL Normal 80.0 - 94.0 fL AO Workflow SS Monocyte, Absolute 0.8 103/mcL Normal 0.2 - 1.0 10^3/mcL AO Workflow SS Monocytes/100 WBC (Bld) 11.6 % Normal 1.7 - 13.0 % AO Workflow SS Neutrophil, Absolute 3.5 103/mcL Normal 2.9 - 6 .2 10^3/mcL AO Workflow SS Neutrophils/100 WBC (Bld) 51.6 % Normal 37.0 - 80.0 % AO Workflow SS Platelet mean volume (Bld) [Entitic vol] 7.3 fL Low 7.4 - 10.4 fL AO Workflow SS Platelets (Bld) [#/Vol] 306 103/mcL Normal 130 - 400 10^3/mcL AO Workflow SS Potassium [Moles/Vol] 3.9 mmol/L Normal 3.5 - 5.1 mmol/L AO ADM SS RBC (Bld) [#/Vol] 4.49 106/mcL Normal 4.20 - 5.4 0 10^6/mcL AO Workflow SS Sodium [Moles/Vol] 143 mmol/L Normal 136 - 145 mmol/L AO ADM SS Urea nitrogen [Mass/Vol] 8 mg/dL Normal 7 - 18 mg/dL AO ADM SS Urea nitrogen/Creatinine [Mass ratio] 9 ratio Normal 7 - 27 ratio AO ADM SS WBC (Bld) [#/Vol] 6.8 103/mcL Normal 4.6 - 10.8 10^3/mcL AO Workflow SS XR CHEST 2 VIEWSon 4 XR CHEST 2 VIEWS ORIGINAL EXAMINATION: TWO XRAY VIEWS OF THE CHEST02/13/2024 8:48 am COMPARISON: 05/27/2022 HISTORY: ORDERING SYSTEM PROVIDED HISTORY: Reason for Exam: PRE-OP, ASTHMA FINDINGS: The heart size is normal. There is no pulmonary consolidation. No pneumothorax or pleural effusion. No aggressive osseous lesions identified. Spurring noted in the spine. Surgical clips seen in the upper abdomen. IMPRESSION: No acute radiographic findings. Interpreted by: Charlie Riley MD Preliminary Report By: Charlie Riley MD Electronically signed By Charlie Riley MD Dictated Date: 02/13/2024 9:08:57 AM Prelim Date: 02/13/2024 9:13:26 AM Sign Date: 02/13/2024 9:13:26 AM Ordering Provider: VIKTOR Gipson Count Includes [facility] ([place]) A1Con 01-31-2024 HbA1c (Bld) [Mass fraction] 5.5 % Normal 4.3-6.4 Count Includes [facility] ([place]) Comment on above: Performed By: #### A DIFF, CBC, ANEU #### [place] [address] LABORATORYOrdered By: SYSTEM SYSTEM on 01-31-2024 HbA1c (Bld) [Mass fraction] 5.5 % Normal 4.3 - 6.4 % AO ADM SS .Auto Diffon 01-30-2024 Basophil, Absolute 0.0 10 3/mcL Normal 0.0-0.2 [facility] ([place]) Comment on above: Performed By: #### B MP, CBC, GFR, ADIFF, PRO, ANEU #### [address] [address] Basophils/100 WBC (Bld) 0.6 % Normal 0.0-2.5 Count Includes [facility] ([place]) Comment on above: Performed By: #### B MP, CBC, GFR, ADIFF, PRO, ANEU #### [address] [address] Eosinophil, Absolute 0.4 10 3/mcL Normal 0.0-0.4 [facility] ([place]) Comment on above: Performed By: #### B MP, CBC, GFR, ADIFF, PRO, ANEU #### [address] [address] Eosinophils/100 WBC (Bld) 5.6 % Normal 0.0-7.0 Count Includes [facility] ([place]) Comment on above: Performed By: #### B MP, CBC, GFR, ADIFF, PRO, ANEU #### [address] [address] Lymphocyte, Absolute 2.0 10 3/mcL Normal 0.8-3.9 [facility] ([place]) Comment on above: Performed By: #### B MP, CBC, GFR, ADIFF, PRO, ANEU #### [address] [address] Lymphocytes/100 WBC (Bld) 27.9 % Normal 10.0-50.0 Count Includes [facility] ([place]) Comment on above: Performed By: #### B MP, CBC, GFR, ADIFF, PRO, ANEU #### [address] [address] Monocyte, Absolute 0.7 10 3/mcL Normal 0.2-1.0 [facility] ([place]) Comment on above: Performed By: #### B MP, CBC, GFR, ADIFF, PRO, ANEU #### [address] [address] Monocytes/100 WBC (Bld) 9.5 % Normal 1.7-13.0 Count Includes [facility] ([place]) Comment on above: Performed By: #### B MP, CBC, GFR, ADIFF, PRO, ANEU #### [address] [address] Neutrophils/100 WBC (Bld) 56.4 % Normal 37.0-80.0 Count Includes [facility] ([place]) Comment on above: Performed By: #### B MP, CBC, GFR, ADIFF, PRO, ANEU #### [address] [address] .GFRon 01-30-2024 GFR 82 ml/min/1.73sqm Normal Count Includes [facility] ([place]) Comment on above: Result Comment: GFR Population mean for , Non- Americans Ages 20-29 = 116 mL/min/1.73 sq.m. Ages 30-39 = 107 mL/min/1.73 sq.m. Ages 40-49 = 99 mL/min/1.73 sq.m. Ages 50-59 = 93 mL/min/1.73 sq.m. Ages 60-69 = 85 mL/min/1.73 sq.m. Ages 70+ = 75 mL/min/1.73 sq.m. Chronic Kidney Disease: Less than 60 mL/min/1.73 square meters End Stage Renal Disease: Less than 15 mL/min/1.73 square meters Performed By: #### A DIFF, CBC, ANEU #### [address] [address] GFR Non- 68 ml/min/1.73sqm Normal Count Includes [facility] ([place]) Comment on above: Result Comment: GFR Population mean for , Non- Americans Ages 20-29 = 116 mL/min/1.73 sq.m. Ages 30-39 = 107 mL/min/1.73 sq.m. Ages 40-49 = 99 mL/min/1.73 sq.m. Ages 50-59 = 93 mL/min/1.73 sq.m. Ages 60-69 = 85 mL/min/1.73 sq.m. Ages 70+ = 75 mL/min/1.73 sq.m. Chronic Kidney Disease: Less than 60 mL/min/1.73 square meters End Stage Renal Disease: Less than 15 mL/min/1.73 square meters Performed By: #### A DIFF, CBC, ANEU #### [address] [address] .NEUABSon 01-30-2024 Neutrophil, Absolute 4.1 10 3/mcL Normal 2.9-6.2 [facility] ([place]) Comment on above: Performed By: #### A DIFF, CBC, ANEU #### [address] [address] APTTon 01-30-2024 aPTT Coag (Bld) [Time] 33.2 s Normal 25.0-35.0 Count Includes [facility] ([place]) Comment on above: Result Comment: For Heparin anticoagulation therapy, the recommended therapeutic range is: 50.6-87.4 seconds. Patients on heparin therapy may have an extreme result. Performed By: #### A DIFF, CBC, ANEU #### [address] [address] Heparin dose (APTT) Unknown Normal [facility] ([place]) Comment on above: Performed By: #### A DIFF, CBC, ANEU #### [address] [address] BMPon 01-30-2024 BUN/Creatinine Ratio 9 ratio Normal 7-27 [facility] ([place]) Comment on above: Performed By: #### A DIFF, CBC, ANEU #### [address] [address] Calcium [Mass/Vol] 8.8 mg/dL Normal 8.4-10.2 [facility] ([place]) Comment on above: Performed By: #### A DIFF, CBC, ANEU #### [address] [address] Chloride [Moles/Vol] 105 mmol/L Normal 98-107 [facility] ([place]) Comment on above: Performed By: #### A DIFF, CBC, ANEU #### [address] [address] CO2 [Moles/Vol] 31 mmol/L High 22-29 [facility] ([place]) Comment on above: Performed By: #### A DIFF, CBC, ANEU #### [address] [address] Creatinine [Mass/Vol] 0.86 mg/dL Normal 0.55-1.02 [facility] ([place]) Comment on above: Performed By: #### A DIFF, CBC, ANEU #### [address] [address] Electrolyte Balance 7.0 mEq/L Normal 4.0-15.0 [facility] ([place]) Comment on above: Performed By: #### A DIFF, CBC, ANEU #### [address] [address] Glucose [Mass/Vol] 108 mg/dL High 70-105 [facility] ([place]) Comment on above: Performed By: #### A DIFF, CBC, ANEU #### [address] [address] Potassium [Moles/Vol] 4.1 mmol/L Normal 3.5-5.1 [facility] ([place]) Comment on above: Performed By: #### A DIFF, CBC, ANEU #### [address] [address] Sodium [Moles/Vol] 143 mmol/L Normal 136-145 [facility] ([place]) Comment on above: Performed By: #### A DIFF, CBC, ANEU #### [address] [address] Urea nitrogen [Mass/Vol] 8 mg/dL Normal 7-18 Count Includes [facility] ([place]) Comment on above: Performed By: #### A DIFF, CBC, ANEU #### [address] [address] CBCon 01-30-2024 Erythrocyte distribution width (RBC) [Ratio] 13.6 % Normal 11.5-14.5 Count Includes [facility] ([place]) Comment on above: Performed By: #### B MP, CBC, GFR, ADIFF, PRO, ANEU #### [address] [address] Hematocrit (Bld) [Volume fraction] 39.6 % Normal 37.0-47.0 Count Includes [facility] ([place]) Comment on above: Performed By: #### B MP, CBC, GFR, ADIFF, PRO, ANEU #### [address] [address] Hgb 13.3 G/dL Normal 12.0-16.0 Count Includes [facility] ([place]) Comment on above: Performed By: #### B MP, CBC, GFR, ADIFF, PRO, ANEU #### [address] [address] MCH (RBC) [Entitic mass] 29.0 pg Normal 27.0-31.2 Count Includes [facility] ([place]) Comment on above: Performed By: #### B MP, CBC, GFR, ADIFF, PRO, ANEU #### [address] [address] MCHC 33.6 G/dL Normal 33.0-37.0 Count Includes [facility] ([place]) Comment on above: Performed By: #### B MP, CBC, GFR, ADIFF, PRO, ANEU #### [address] [address] MCV (RBC) [Entitic vol] 86.3 fL Normal 80.0-94.0 Count Includes [facility] ([place]) Comment on above: Performed By: #### B MP, CBC, GFR, ADIFF, PRO, ANEU #### [address] [address] Platelet 335 10 3/mcL Normal 130-400 [facility] ([place]) Comment on above: Performed By: #### B MP, CBC, GFR, ADIFF, PRO, ANEU #### [address] [address] Platelet mean volume (Bld) [Entitic vol] 7.4 fL Normal 7.4-10.4 [facility] ([place]) Comment on above: Performed By: #### B MP, CBC, GFR, ADIFF, PRO, ANEU #### [place] [address] [place], [place] [address] RBC 4.59 10 6/mcL Normal 4.20-5.40 [facility] ([place]) Comment on above: Performed By: #### B MP, CBC, GFR, ADIFF, PRO, ANEU #### [address] [address] WBC 7.3 10 3/mcL Normal 4.6-10.8 [facility] ([place]) Comment on above: Performed By: #### B MP, CBC, GFR, ADIFF, PRO, ANEU #### [address] [address] LABORATORYOrdered By: Caryn Reeves on 01-30-2024 aPTT Coag (PPP) [Time] 33.2 s Normal 25.0 - 35.0 seconds AO [facility] SS Comment on above: Interpretive Data: F or Heparin anticoagulation therapy, the recommended therapeutic range is: 50.6-87.4 seconds. Patients on heparin therapy may have an extreme result. Heparin dose (APTT) Unknown (01/30/24 9:25 AM) Normal AO Coagulation S INR Coag (PPP) [Relative time] 1.0 {INR} Invalid Interpretation Code AO [facility] SS Comment on above: Interpretive Data: Damian hamilton [employer] (CHEST, 1991, 102:[id number]) recommended therapeutic range for oral anticoagulant therapy is: LOW RISK: Prophylaxis of venous thrombosis INR: 2.0-3.0 Treatment of pulmonary embolism 2.0-3.0 Prevention of systemic embolism 2.0-3.0 HIGH RISK: Mechanical prosthetic valves 2.5-3.5 PT Coag (PPP) [Time] 11.9 s Normal 9.0 - 1 4.2 seconds AO [facility] SS LABORATORYOrdered By: SYSTEM SYSTEM on 01-30-2024 Basophil, Absolute 0.0 103/mcL Normal 0.0 - 0.2 10^3/mcL AO Workflow SS Basophils/100 WBC (Bld) 0.6 % Normal 0.0 - 2.5 % AO Workflow SS Calcium [Mass/Vol] 8.8 mg/dL Normal 8.4 - 10. 2 mg/dL AO ADM SS Chloride [Moles/Vol] 105 mmol/L Normal 98 - 10 7 mmol/L AO ADM SS CO2 [Moles/Vol] 31 mmol/L High 22 - 29 mmol/L AO ADM SS Creatinine [Mass/Vol] 0.86 mg/dL Normal 0.55 - 1.02 mg/dL AO ADM SS Electrolyte Balance 7.0 mEq/L Normal 4.0 - 15 .0 mEq/L AO ADM SS Eosinophil, Absolute 0.4 103/mcL Normal 0.0 - 0 .4 10^3/mcL AO Workflow SS Eosinophils/100 WBC (Bld) 5.6 % Normal 0.0 - 7.0 % AO Workflow SS Erythrocyte distribution width (RBC) [Ratio] 13.6 % Normal 11.5 - 14.5 % AO Workflow SS GFR/1.73 sq M.predicted among blacks MDRD (S/P/Bld) [Vol rate/Area] 82 ml/min/1.73sqm Invalid Interpretation Code AO Chemistry S Comment on above: Interpretive Data: GFR Population mean for , Non- Americans Ages 20-29 = 116 mL/min/1.73 sq.m. Ages 30-39 = 107 mL/min/1.73 sq.m. Ages 40-49 = 99 mL/min/1.73 sq.m. Ages 50-59 = 93 mL/min/1.73 sq.m. Ages 60-69 = 85 mL/min/1.73 sq.m. Ages 70+ = 75 mL/min/1.73 sq.m. Chronic Kidney Disease: Less than 60 mL/min/1.73 square meters End Stage Renal Disease: Less than 15 mL/min/1.73 square meters GFR/1.73 sq M.predicted among non-blacks MDRD (S/P/Bld) [Vol rate/Area] 68 ml/min/1.73sqm Invalid Interpretation Code AO Chemistry S Comment on above: Interpretive Data: GFR Population mean for , Non- Americans Ages 20-29 = 116 mL/min/1.73 sq.m. Ages 30-39 = 107 mL/min/1.73 sq.m. Ages 40-49 = 99 mL/min/1.73 sq.m. Ages 50-59 = 93 mL/min/1.73 sq.m. Ages 60-69 = 85 mL/min/1.73 sq.m. Ages 70+ = 75 mL/min/1.73 sq.m. Chronic Kidney Disease: Less than 60 mL/min/1.73 square meters End Stage Renal Disease: Less than 15 mL/min/1.73 square meters Glucose [Mass/Vol] 108 mg/dL High 70 - 105 mg/dL AO ADM SS Hematocrit (Bld) [Volume fraction] 39.6 % Normal 37.0 - 47.0 % AO Workflow SS Hemoglobin (Bld) [Mass/Vol] 13.3 G/dL Normal 12.0 - 16.0 G/dL AO Workflow SS Lymphocyte, Absolute 2.0 103/mcL Normal 0.8 - 3 .9 10^3/mcL AO Workflow SS Lymphocytes/100 WBC (Bld) 27.9 % Normal 10.0 - 50.0 % AO Workflow SS MCH (RBC) [Entitic mass] 29.0 pg Normal 27.0 - 31.2 pg AO Workflow SS MCHC 33.6 G/dL Normal 33.0 - 37.0 G/dL AO Workflow SS MCV (RBC) [Entitic vol] 86.3 fL Normal 80.0 - 94.0 fL AO Workflow SS Monocyte, Absolute 0.7 103/mcL Normal 0.2 - 1.0 10^3/mcL AO Workflow SS Monocytes/100 WBC (Bld) 9.5 % Normal 1.7 - 13.0 % AO Workflow SS Neutrophil, Absolute 4.1 103/mcL Normal 2.9 - 6 .2 10^3/mcL AO Workflow SS Neutrophils/100 WBC (Bld) 56.4 % Normal 37.0 - 80.0 % AO Workflow SS Platelet mean volume (Bld) [Entitic vol] 7.4 fL Normal 7.4 - 10.4 fL AO Workflow SS Platelets (Bld) [#/Vol] 335 103/mcL Normal 130 - 400 10^3/mcL AO Workflow SS Potassium [Moles/Vol] 4.1 mmol/L Normal 3.5 - 5.1 mmol/L AO ADM SS RBC (Bld) [#/Vol] 4.59 106/mcL Normal 4.20 - 5.4 0 10^6/mcL AO Workflow SS Sodium [Moles/Vol] 143 mmol/L Normal 136 - 145 mmol/L AO ADM SS Urea nitrogen [Mass/Vol] 8 mg/dL Normal 7 - 18 mg/dL AO ADM SS Urea nitrogen/Creatinine [Mass ratio] 9 ratio Normal 7 - 27 ratio AO ADM SS WBC (Bld) [#/Vol] 7.3 103/mcL Normal 4.6 - 10.8 10^3/mcL AO Workflow SS PROon 01-30-2024 PT Coag (PPP) [Time] 11.9 s Normal 9.0-14.2 [facility] ([place]) Comment on above: Performed By: #### A DIFF, CBC, ANEU #### [address] [address] PT International Ratio 1.0 Normal Count Includes [facility] ([place]) Comment on above: Result Comment: The [employer] (CHEST, 1992, 102:[id number]) recommended therapeutic range for oral anticoagulant therapy is: LOW RISK: Prophylaxis of venous thrombosis INR: 2.0-3.0 Treatment of pulmonary embolism 2.0-3.0 Prevention of systemic embolism 2.0-3.0 HIGH RISK: Mechanical prosthetic valves 2.5-3.5 Performed By: #### A DIFF, CBC, ANEU #### [address] [address] .GFRon 01-24-2024 GFR 94 ml/min/1.73sqm Normal Count Includes [facility] ([place]) Comment on above: Result Comment: GFR Population mean for , Non- Americans Ages 20-29 = 116 mL/min/1.73 sq.m. Ages 30-39 = 107 mL/min/1.73 sq.m. Ages 40-49 = 99 mL/min/1.73 sq.m. Ages 50-59 = 93 mL/min/1.73 sq.m. Ages 60-69 = 85 mL/min/1.73 sq.m. Ages 70+ = 75 mL/min/1.73 sq.m. Chronic Kidney Disease: Less than 60 mL/min/1.73 square meters End Stage Renal Disease: Less than 15 mL/min/1.73 square meters Performed By: #### A DIFF, CBC, ANEU #### [facility] [place] [address] [place], [place] [address] GFR Non- 77 ml/min/1.73sqm Normal Count Includes [facility] ([place]) Comment on above: Result Comment: GFR Population mean for , Non- Americans Ages 20-29 = 116 mL/min/1.73 sq.m. Ages 30-39 = 107 mL/min/1.73 sq.m. Ages 40-49 = 99 mL/min/1.73 sq.m. Ages 50-59 = 93 mL/min/1.73 sq.m. Ages 60-69 = 85 mL/min/1.73 sq.m. Ages 70+ = 75 mL/min/1.73 sq.m. Chronic Kidney Disease: Less than 60 mL/min/1.73 square meters End Stage Renal Disease: Less than 15 mL/min/1.73 square meters Performed By: #### A DIFF, CBC, ANEU #### [address] [address] CMPon 01-24-2024 Albumin Level 3.3 G/dL Low 3.5-5.0 [facility] ([place]) Comment on above: Performed By: #### A DIFF, CBC, ANEU #### [address] [address] Albumin/Globulin [Mass ratio] 0.9 {ratio} Low 1.1-2.5 Count Includes [facility] ([place]) Comment on above: Performed By: #### A DIFF, CBC, ANEU #### [address] [address] ALP [Catalytic activity/Vol] 119 U/L Normal 40-135 Count Includes [facility] ([place]) Comment on above: Performed By: #### A DIFF, CBC, ANEU #### [address] [address] ALT [Catalytic activity/Vol] 23 U/L Normal 14-59 Count Includes [facility] ([place]) Comment on above: Performed By: #### A DIFF, CBC, ANEU #### [address] [address] AST [Catalytic activity/Vol] 15 U/L Normal 10-40 Count Includes [facility] ([place]) Comment on above: Performed By: #### A DIFF, CBC, ANEU #### [address] [address] Bili Total 0.5 mg/dL Normal 0.2-1.0 Count Includes [facility] ([place]) Comment on above: Result Comment: Use of this assay is not recommended for patients undergoing treatment with eltrombopag due to the potential for falsely elevated results. Performed By: #### A DIFF, CBC, ANEU #### [address] [address] BUN/Creatinine Ratio 10 ratio Normal 7-27 [facility] ([place]) Comment on above: Performed By: #### A DIFF, CBC, ANEU #### [address] [address] Calcium [Mass/Vol] 8.6 mg/dL Normal 8.4-10.2 [facility] ([place]) Comment on above: Performed By: #### A DIFF, CBC, ANEU #### [address] [address] Chloride [Moles/Vol] 105 mmol/L Normal 98-107 [facility] ([place]) Comment on above: Performed By: #### A DIFF, CBC, ANEU #### [address] [address] CO2 [Moles/Vol] 32 mmol/L High 22-29 [facility] ([place]) Comment on above: Performed By: #### A DIFF, CBC, ANEU #### [address] [address] Creatinine [Mass/Vol] 0.77 mg/dL Normal 0.55-1.02 [facility] ([place]) Comment on above: Performed By: #### A DIFF, CBC, ANEU #### [address] [address] Electrolyte Balance 5.0 mEq/L Normal 4.0-15.0 [facility] ([place]) Comment on above: Performed By: #### A DIFF, CBC, ANEU #### [address] [address] Globulin 3.7 G/dL Normal Count Includes [facility] ([place]) Comment on above: Performed By: #### A DIFF, CBC, ANEU #### [address] [address] Glucose [Mass/Vol] 85 mg/dL Normal 70-105 [facility] ([place]) Comment on above: Performed By: #### A DIFF, CBC, ANEU #### [address] [address] Potassium [Moles/Vol] 4.0 mmol/L Normal 3.5-5.1 [facility] ([place]) Comment on above: Performed By: #### A DIFF, CBC, ANEU #### [address] [address] Sodium [Moles/Vol] 142 mmol/L Normal 136-145 [facility] ([place]) Comment on above: Performed By: #### A DIFF, CBC, ANEU #### [address] [address] Total Protein 7.0 G/dL Normal 6.4-8.2 [facility] ([place]) Comment on above: Performed By: #### A DIFF, CBC, ANEU #### [address] [address] Urea nitrogen [Mass/Vol] 8 mg/dL Normal 7-18 Count Includes [facility] ([place]) Comment on above: Performed By: #### A DIFF, CBC, ANEU #### [address] [address] LIPIDon 01-24-2024 Cholesterol [Mass/Vol] 243 mg/dL High 0-200 Count Includes [facility] ([place]) Comment on above: Result Comment: Chol esterol Reference Interval: Less than 200 Desirable 200-239 Borderline high risk 240 and above High risk Performed By: #### A DIFF, CBC, ANEU #### [address] [address] Cholesterol in HDL [Mass/Vol] 49 mg/dL Normal 40-60 Count Includes [facility] ([place]) Comment on above: Performed By: #### A DIFF, CBC, ANEU #### [address] [place], [place] [address] Cholesterol in LDL [Mass/Vol] 166 mg/dL High 0-130 Count Includes [facility] ([place]) Comment on above: Performed By: #### A DIFF, CBC, ANEU #### [address] [place], [place] [address] Triglyceride [Mass/Vol] 141 mg/dL Normal 0-150 Count Includes [facility] ([place]) Comment on above: Result Comment: Trig lyceride Reference Interval: Less than 150 Normal 150-199 Borderline high risk 200-499 High risk 500 or higher Very high risk Performed By: #### A DIFF, CBC, ANEU #### [address] [place], [place] [address] XR SPINE LUMBAR AP/LATon XR SPINE LUMBAR AP/LAT ORIGINAL EXAMINATION: 3 XRAY VIEWS OF THE LUMBAR SPINE11/24/2023 10:56 am LUMBAR SPINE 2 or 3 VIEWS COMPARISON: 11/03/2021 HISTORY: ORDERING SYSTEM PROVIDED HISTORY: Reason for Exam: pain/injury FINDINGS: Straightening of the lordosis noted. The vertebral body heights are normal. No spondylolisthesis. Rudimentary ribs seen at T12. L5 is sacralized. Mild marginal osteophytes seen in the lumbar spine. Disc heights are relatively preserved. Mild facet arthropathy. Vascular calcifications seen. IMPRESSION: Mild degenerative changes. Interpreted by: Charlie Riley MD Preliminary Report By: Charlie Riley MD Electronically signed By Charlie Riley MD Dictated Date: 11/26/2023 7:24:58 AM Prelim Date: 11/26/2023 7:26:16 AM Sign Date: 11/26/2023 7:26:16 AM Ordering Provider: MICHELLE Gipson Count Includes [facility] ([place]) XR SPINE THORACIC 2 VIEWSon 11-25-2023 XR SPINE THORACIC 2 VIEWS ORIGINAL EXAMINATION: 3 XRAY VIEWS OF THE THORACIC SPINE11/24/2023 10:57 am COMPARISON: None. HISTORY: ORDERING SYSTEM PROVIDED HISTORY: Reason for Exam: pain/injury FINDINGS: Mild age indeterminate compression deformity seen at approximately T6.. Mild marginal disc osteophytes seen in the thoracic spine. Surgical clips seen in the upper abdomen. IMPRESSION: Mild age indeterminate compression deformity at approximately T6. Consider MRI evaluation Mild degenerative changes. Interpreted by: Charlie Riley MD Preliminary Report By: Charlie Riley MD Electronically signed By Charlie Riley MD Dictated Date: 11/25/2023 4:59:25 PM Prelim Date: 11/25/2023 5:01:23 PM Sign Date: 11/25/2023 5:01:23 PM Ordering Provider: MICHELLE Gipson Count Includes [facility] ([place]) LABORATORYOrdered By: Anne Carrillo on 05-27-2022 Basophil, Absolute 0.1 103/mcL Invalid Interpretation Code 0.0 - 0.2 10^3/mcL AO Workflow SS Basophils/100 WBC (Bld) 0.9 % Invalid Interpretation Code 0.0 - 2.5 % AO Workflow SS Calcium [Mass/Vol] 8.8 mg/dL Invalid Interpretation Code 8.4 - 10.2 mg/dL AO ADM SS Chloride [Moles/Vol] 104 mmol/L Invalid Interpretation Code 98 - 107 mmol/L AO ADM SS CO2 [Moles/Vol] 31 mmol/L Invalid Interpretation Code 22 - 29 mmol/L AO ADM SS Creatinine [Mass/Vol] 0.87 mg/dL Invalid Interpretation Code 0.55 - 1.02 mg/dL AO ADM SS Electrolyte Balance 5.0 mEq/L Invalid Interpretation Code 4.0 - 15.0 mEq/L AO ADM SS Eosinophil, Absolute 0.5 103/mcL Invalid Interpretation Code 0.0 - 0.4 10^3/mcL AO Workflow SS Eosinophils/100 WBC (Bld) 7.2 % Invalid Interpretation Code 0.0 - 7.0 % AO Workflow SS Erythrocyte distribution width (RBC) [Ratio] 13.3 % Invalid Interpretation Code 11.5 - 14.5 % AO Workflow SS Glucose [Mass/Vol] 90 mg/dL Invalid Interpretation Code 70 - 105 mg/dL AO ADM SS Hematocrit (Bld) [Volume fraction] 40.5 % Invalid Interpretation Code 37.0 - 47.0 % AO Workflow SS Hemoglobin (Bld) [Mass/Vol] 13.6 G/dL Invalid Interpretation Code 12.0 - 16.0 G/dL AO Workflow SS Lymphocyte, Absolute 2.3 103/mcL Invalid Interpretation Code 0.8 - 3.9 10^3/mcL AO Workflow SS Lymphocytes/100 WBC (Bld) 33.4 % Invalid Interpretation Code 10.0 - 50.0 % AO Workflow SS MCH (RBC) [Entitic mass] 28.5 pg Invalid Interpretation Code 27.0 - 31.2 pg AO Workflow SS MCHC 33.7 G/dL Invalid Interpretation Code 33.0 - 37.0 G/dL AO Workflow SS MCV (RBC) [Entitic vol] 84.7 fL Invalid Interpretation Code 80.0 - 94.0 fL AO Workflow SS Monocyte, Absolute 0.6 103/mcL Invalid Interpretation Code 0.2 - 1.0 10^3/mcL AO Workflow SS Monocytes/100 WBC (Bld) 9.2 % Invalid Interpretation Code 1.7 - 13.0 % AO Workflow SS Neutrophil, Absolute 3.4 103/mcL Invalid Interpretation Code 2.9 - 6.2 10^3/mcL AO Workflow SS Neutrophils/100 WBC (Bld) 49.3 % Invalid Interpretation Code 37.0 - 80.0 % AO Workflow SS Platelet mean volume (Bld) [Entitic vol] 7.8 fL Invalid Interpretation Code 7.4 - 10.4 fL AO Workflow SS Platelets (Bld) [#/Vol] 312 103/mcL Invalid Interpretation Code 130 - 400 10^3/mcL AO Workflow SS Potassium [Moles/Vol] 4.4 mmol/L Invalid Interpretation Code 3.5 - 5.1 mmol/L AO ADM SS RBC (Bld) [#/Vol] 4.79 106/mcL Invalid Interpretation Code 4.20 - 5.40 10^6/mcL AO Workflow SS Sodium [Moles/Vol] 140 mmol/L Invalid Interpretation Code 136 - 145 mmol/L AO ADM SS Urea nitrogen [Mass/Vol] 9 mg/dL Invalid Interpretation Code 7 - 18 mg/dL AO ADM SS Urea nitrogen/Creatinine [Mass ratio] 10 ratio Invalid Interpretation Code 7 - 27 ratio AO ADM SS WBC 6.9 103/mcL Invalid Interpretation Code 4.6 - 10.8 10^3/mcL AO Workflow SS LABORATORYOrdered By: SYSTEM SYSTEM on 05-27-2022 GFR 82 ml/min/1.73sqm Invalid Interpretation Code AO Chemistry S GFR Non- 68 ml/min/1.73sqm Invalid Interpretation Code AO Chemistry S Monocyte distribution width Auto (Bld) [Entitic vol] Not Performed 1 *NA* (05/27/22 10:24 AM) Invalid Interpretation Code 0.00 - 20.00 AO Hematology S Comment on above: Result Comment: MDW testing performed only on adult ER patients between the ages of 18-89 years. 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 08-01-2017 Tobacco use CPHS Never smoker Invalid Interpretation Code [facility] Work Phone: Office Visit: evaluation for TBSEon 08-01-2017 Dietary management education, guidance, and counseling (procedure) yes Invalid Interpretation Code [facility] Work Phone: Documentation of current medications (procedure) Done Invalid Interpretation Code [facility] Work Phone: Fall risk assessment No Invalid Interpretation Code [facility] Work Phone: Tobacco smoking status NHIS Never Invalid Interpretation Code [facility] Work Phone: Tobacco smoking status NHIS Never smoker Invalid Interpretation Code [facility] Work Phone: Tobacco use CPHS Never smoker Invalid Interpretation Code [facility] Work Phone: Vital Signs Date Time Vital Sign Value Performing Clinician Jerilyn matias 04-05-2024 15:12-0400 Body temperature 97.88 [degF] VIKTOR BARAKAT DO [facility] 04-05-2024 15:12-0400 Diastolic Blood Pressure Non-Invasive 66 mm[Hg] VIKTOR BARAKAT DO [facility] 04-05-2024 15:12-0400 Heart rate 80 /min VIKTOR BARAKAT DO [facility] 04-05-2024 15:12-0400 Reason For Taking VItal Signs VIKTOR BARAKAT DO [facility] 04-05-2024 15:12-0400 Respiratory rate 16 /min VIKTOR BARAKAT DO [facility] 04-05-2024 15:12-0400 Systolic Blood Pressure Non-Invasive 111 mm[Hg] VIKTOR BARAKAT DO [facility] 04-05-2024 11:30-0400 Body temperature 97.7 [degF] VIKTOR BARAKAT DO [facility] 04-05-2024 11:30-0400 Diastolic Blood Pressure Non-Invasive 60 mm[Hg] VIKTOR BARAKAT DO [facility] 04-05-2024 11:30-0400 Heart rate 74 /min VIKTOR BARAKAT DO [facility] 04-05-2024 11:30-0400 Reason For Taking VItal Signs VIKTOR BARAKAT DO [facility] 04-05-2024 11:30-0400 Respiratory rate 16 /min VIKTOR BARAKAT DO [facility] 04-05-2024 11:30-0400 Systolic Blood Pressure Non-Invasive 119 mm[Hg] VIKTOR BARAKAT DO [facility] 04-05-2024 06:36-0400 Body temperature 98.24 [degF] VIKTOR BARAKAT DO [facility] 04-05-2024 06:36-0400 Diastolic Blood Pressure Non-Invasive 65 mm[Hg] VIKTOR BARAKAT DO [facility] 04-05-2024 06:36-0400 Heart rate 84 /min VIKTOR BARAKAT DO [facility] 04-05-2024 06:36-0400 Reason For Taking VItal Signs VIKTOR BARAKAT DO [facility] 04-05-2024 06:36-0400 Respiratory rate 16 /min VIKTOR BARAKAT DO [facility] 04-05-2024 06:36-0400 Systolic Blood Pressure Non-Invasive 122 mm[Hg] VIKTOR BARAKAT DO [facility] 04-04-2024 15:07-0400 Body temperature 96.26 [degF] VIKTOR BARAKAT DO [facility] 04-04-2024 13:59-0400 Body height 157.8 cm VIKTOR BARAKAT DO [facility] 04-04-2024 13:59-0400 Body weight 59.09 kg VIKTOR BARAKAT DO [facility] 04-04-2024 13:59-0400 Body weight 23.73 kg/m2 VIKTOR BARAKAT DO [facility] 04-04-2024 12:05-0400 Body temperature 97.16 [degF] VIKTOR BARAKAT DO [facility] 04-04-2024 12:00-0400 Respiratory Rate - Anes 0 br/min VIKTOR BARAKAT DO [facility] 04-04-2024 11:55-0400 Respiratory Rate - Anes 7 br/min VIKTOR BARAKAT DO [facility] 04-04-2024 11:50-0400 Respiratory Rate - Anes 6 br/min VIKTOR BARAKAT DO [facility] 04-04-2024 11:45-0400 Body temperature 95.9 [degF] VIKTOR BARAKAT DO [facility] 04-04-2024 11:30-0400 Body temperature 95.9 [degF] VIKTOR BARAKAT DO [facility] 04-04-2024 11:15-0400 Body temperature 95.9 [degF] VIKTOR BARAKAT DO [facility] 04-04-2024 08:56-0400 Body height 157.8 cm VIKTOR BARAKAT DO [facility] 04-04-2024 08:56-0400 Body temperature 97.16 [degF] VIKTOR BARAKAT DO [facility] 04-04-2024 08:56-0400 Body weight 59.09 kg VIKTOR BARAKAT DO [facility] 04-04-2024 08:56-0400 Heart rate 62 /min VIKTOR BARAKAT DO [facility] 03-22-2024 08:20-0400 Body height 157.5 cm VIKTOR BARAKAT DO [facility] 03-22-2024 08:20-0400 Body weight 59.1 kg VIKTOR BARAKAT DO [facility] 02-13-2024 08:00-0400 Blood Pressure Location VIKTOR BARAKAT DO [facility] 02-13-2024 08:00-0400 Blood Pressure Method VIKTOR BARAKAT DO [facility] 02-13-2024 08:00-0400 Body height 157.5 cm VIKTOR BARAKAT DO [facility] 02-13-2024 08:00-0400 Body weight 59.1 kg VIKTOR BARAKAT DO [facility] 02-13-2024 08:00-0400 Body weight 23.82 kg/m2 VIKTOR BARAKAT DO [facility] 02-13-2024 08:00-0400 Diastolic Blood Pressure Non-Invasive 103 mm[Hg] VIKTOR BARAKAT DO [facility] 02-13-2024 08:00-0400 Heart rate 80 /min VIKTOR BARAKAT DO [facility] 02-13-2024 08:00-0400 Respiratory rate 18 /min VIKTOR BARAKAT DO [facility] 02-13-2024 08:00-0400 Systolic Blood Pressure Non-Invasive 155 mm[Hg] VIKTOR BARAKAT DO [facility] 08-25-2017 14:57-0400 BMI (Body Mass Index) 27.75 kg/m2 [facility] Work Phone: 08-25-2017 14:57-0400 Body Temperature 98.2 [degF] [facility] Work Phone: 08-25-2017 14:57-0400 BP Diastolic 89 mm[Hg] [facility] Work Phone: 08-25-2017 14:57-0400 BP Systolic 142 mm[Hg] Diallo Bañuelos MD [facility] Work Phone: 08-25-2017 14:57-0400 BSA (Body Surface Area) 1.78 m2 Diallo Bañuelos MD [facility] Work Phone: 08-25-2017 14:57-0400 Height 161.93 cm Diallo Bañuelos MD [facility] Work Phone: 08-25-2017 14:57-0400 Pulse (Heart Rate) 61 /min Diallo Bañuelos MD [facility] Work Phone: 08-25-2017 14:57-0400 Respiratory Rate 16 /min Diallo Bañuelos MD [facility] Work Phone: 08-25-2017 14:57-0400 Weight 72.76 kg Diallo Bañuelos MD [facility] Work Phone: 08-01-2017 15:32-0400 BMI (Body Mass Index) 27.57 kg/m2 Ashley Chema [facility] Work Phone: 08-01-2017 15:32-0400 Body Temperature 97.6 [degF] Ashleypadmini Bear [facility] Work Phone: 08-01-2017 15:32-0400 BP Diastolic 88 mm[Hg] Ashleypadmini Bear [facility] Work Phone: 08-01-2017 15:32-0400 BP Systolic 158 mm[Hg] Ashleypadmini [place] [facility] Work Phone: 08-01-2017 15:32-0400 Height 161.93 cm Ashley Chema [facility] Work Phone: 08-01-2017 15:32-0400 Pulse (Heart Rate) 80 /min Ashleypadmini Bear [facility] Work Phone: 08-01-2017 15:32-0400 Respiratory Rate 16 /min Ashleypadmini Bear [facility] Work Phone: 08-01-2017 15:32-0400 Weight 72.3 kg Ashleypadmini Bear [facility] Work Phone: Encounters Encounter Date Encounter Type Care Provider Facility Start: 07-17-[address] MICHELLE MONTERROSO DO Fac ility:B Start: 07-11-2024 End: 07-11-[address] MICHELLE MONTERROSO DO Facility:[facility] Start: 07-11-2024 End: 07-11-2024 Patient encounter procedure ALPHONSO MAST [facility]MBRELLA [facility] [facility] Start: 04-04-2024 End: 04-05-2024 ambulatory YOSI HERNANDEZ MD Facility:[facility] Start: 04-04-2024 End: 04-05-2024 Observation VIKTOR BARAKAT DO [facility] Start: 03-22-2024 End: 03-22-2024 Admission to establishment VIKTOR BARAKAT DO [facility] Start: 03-22-2024 End: 03-22-[address] MICHELLE MONTERROSO DO Facility:B Start: 02-13-2024 End: 02-13-2024 Admission to establishment VIKTOR BARAKAT DO [facility] Start: 02-13-2024 End: 02-13-2024 ambulatory VIKTOR BARAKAT DO Facility:B Start: 02-06-2024 ambulatory VIKTOR BARAKAT DO Facili ty:B Start: 01-31-2024 End: 01-31-[address] MICHELLE MONTERROSO DO Facility:B Start: 01-31-2024 End: 01-31-2024 Patient encounter procedure VIKTOR BARAKAT DO [facility] Start: 01-30-2024 End: 01-30-[address] MICHELLE MONTERROSO DO Facility:B Start: 01-30-2024 End: 01-30-2024 Patient encounter procedure AIMEE FLORES [facility] Start: 01-24-2024 End: 01-24-[address] MICHELLE MONTERROSO DO Facility:B Start: 11-24-2023 End: 11-24-[address] MICHELLE MONTERROSO DO Facility:[facility] Start: 11-24-2023 End: 11-24-[address] MICHELLE MONTERROSO DO [facility] Start: 01-21-2023 End: 01-21-[address] MICHELLE MONTERROSO DO [facility] Start: 05-27-2022 End: 05-27-2022 Patient encounter procedure MILY GIBSON DO [facility] Start: 03-02-2022 End: 03-02-[address] MICHELLE MONTERROSO DO [facility] Start: 01-02-2022 End: 01-02-2022 Patient encounter procedure LISA DEAN DO [facility] Start: 11-03-2021 End: 11-03-2021 Patient encounter procedure ENOCH NGUYEN MD [facility] Procedures Date Procedure Procedure Detail Performing Clinician Start: 06-24-2022 Knee region structure (body structure) DR MICHELLE MONTERROSO DO Comment on above: Left - torn meniscus Start: 06-12-2020 Percutaneous transluminal coronary angioplasty ENOCH NGUYEN MD Start: 04-17-2020 Cardiac catheterization ENOCH Ley Comment on above: LAD: The proximal vessel is well visuali zed, large, and mildly calcified; it has mild diffuse disease. Distal vessel lesion: There is an 80% stenosis. LAD disease is severe and amendable to PCI if she fails GDMT. Aggressive medical treatment is recommended. Start: 04-09-2020 Cardiovascular stress testing ENOCH KRUSE MD Comment on above: Possible mild anterior ischemia. Likely shifting breast attenuation artifact. No evidence of prior infarction. Normal systolic function with EF 70%. Start: 11-20-2019 Reduction mammoplasty ENOCH NGUYEN MD Start: 08-01-2017 End: 08-01-2017 Dietary management education, guidance, and counseling Ashley Bear Start: 08-01-2017 End: 08-01-2017 Documentation of current medications Ashley Bear Start: 08-01-2017 End: 08-16-2017 Follow Up Appt Other Diallo Bañuelos MD Esophagogastroduodenoscopy Mera NGUYEN MD Comment on above: x2 Excision of bunion ENOCH KINNEY MD Comment on above: Bilateral History of tonsillectomy AND REW WENDY ANGELA Hysterectomy ENOCH NGUYEN MD Implantable vibrator bone-conduction hearing implant system (physical object) EONCH NGUYEN MD Comment on above: Left ear Jaw region structure (body structure) ENOCH NGUYEN MD Comment on above: jaw surgery Plan of Treatment Date Care Activity Detail Author Start: 08-25-2017 End: 08-25-2017 Appointment Appointment [facility] Work Phone: Start: 08-25-2017 End: 10-01-2017 Follow up Appt 3 weeks Follow up Appt 3 weeks [facility] Work Phone: Start: 08-16-2017 End: 08-16-2017 Appointment Appointment [facility] Work Phone: Start: 08-01-2017 End: 08-01-2017 Appointment Appointment [facility] Work Phone: Start: 08-01-2017 End: 08-16-2017 Follow Up Appt Other Follow Up Appt Other [facility] Work Phone: Immunizations Immunization Date Immunization Notes Care Provider Fa [facility] 08-25-2023 influenza, injectabl e, quadrivalent, contains preservative; Translations: [Fluarix PF Quadrivalent ] DR MICHELLE MONTERROSO DO [facility] 07-30-2022 COVID-19, mRNA, LNP- S, bivalent booster, PF, 30 mcg/0.3 mL dose; Translations: [Pfizer-BioNTech COVID-19 (12y+) Bivalent Booster Vaccine PF] DR MICHELLE MONTERROSO DO [facility] Comment on above: Early/Late Reason: E prateek/Late Reason: Other: 07-30-2022 SARSCoV2 mRNA(ozigayfdfya51d+)bi uriel vac 1; Translations: [Pfizer-BioNTech COVID-19 (12y+) Bivalent Booster Vaccine PF] DR MICHELLE MONTERROSO DO [facility] Comment on above: Early/Late Reason: E prateek/Late Reason: Other: 07-30-2022 influenza, injectabl e, quadrivalent, contains preservative; Translations: [Fluarix PF Quadrivalent ] DR MICHELLE MONTERROSO DO [facility] 05-19-2022 COVID-19, mRNA, LNP- S, PF, 100 mcg or 50 mcg dose; Translations: [Moderna COVID-19 Vaccine] MILY GIBSON DO [facility] 11-16-2021 COVID-19, mRNA, LNP- S, PF, 100 mcg or 50 mcg dose; Translations: [Moderna COVID-19 Vaccine] LISA DEAN DO [facility] 10-19-2021 COVID-19, mRNA, LNP- S, PF, 100 mcg/ 0.5 mL dose; Translations: [Moderna COVID-19 Vaccine] ENOCH NGUYEN MD [facility] 08-20-2021 influenza, injectabl e, quadrivalent, contains preservative; Translations: [Fluarix PF Quadrivalent ] ENOCH NGUYEN MD [facility] 09-11-2019 influenza virus vaccine, unspecified formulation DR MICHELLE MONTERROSO DO [facility] 08-18-2018 influenza virus vaccine, unspecified formulation DR MICHELLE MONTERROSO DO [facility] 05-16-2018 tetanus toxoid, redu amrianne diphtheria toxoid, and acellular pertussis vaccine, adsorbed DR MICHELLE MONTERROSO DO [facility] 08-19-2017 influenza virus vaccine, unspecified formulation DR MICHELLE MONTERROSO DO [facility] 08-23-2016 influenza virus vaccine, unspecified formulation DR MICHELLE MONTERROSO DO [facility] 09-01-2015 influenza virus vaccine, unspecified formulation DR MICHELLE MONTERROSO DO [facility] 08-28-2014 influenza virus vaccine, unspecified formulation DR MICHELLE MONTERROSO DO [facility] 08-06-2013 influenza virus vaccine, unspecified formulation DR MICHELLE MONTERROSO DO [facility] Payers Date Payer Category Payer Private Health Insurance [id number] 1965 Unknown [id number] 2.16.8 [id number] 1965 Unknown [id number] 2.16.8 [id number] 1966 Unknown [id number] 2.16.8 [id number] 1966 Unknown [id number] 2.16.8 [id number] 1966 Unknown [id number] 2.16.8 [id number] 1966 Unknown [id number] 2.16.8 [id number] 1966 Unknown [id number] 2.16.8 [id number] 1966 Unknown [id number] 2.16.8 [id number] 1966 Unknown [id number] 2.16.8 [id number] 1966 Unknown [id number] 2.16.8 [id number] Social History Date Type Detail Facility Start: 08-14-2019 Never smoked t obacco (finding) [facility] Sex Assigned At Female [facility] Functional Status Date Assessment Result Facility 04-05-2024 Functional Status Min Mera 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, Meal preparation, Personal ADL, Shopping, Social participation [facility] 03-22-2024 Functional Status Sensory Defici ts Hearing deficit, left ear, Hearing deficit, right ear [facility] 02-13-2024 Functional Status Sensory Defici ts Hearing deficit, left ear, Hearing deficit, right ear [facility] Mental Status Date Assessment Result Facility 04-05-2024 Mental Status Oriented x 4 [facility] 04-04-2024 Mental Status [facility] Clinical Notes 01-02-2022 to 07-11-2024 RadiologyRadiologyRadiology Note Date & Type Note Facility 07-11-2024 Note ORIGINAL EXAMINATION: THREE XRAY VIEWS OF THE RIGHT KNEE07/11/2024 8:38 am COMPARISON: November 13, 2018 HISTORY: ORDERING SYSTEM PROVIDED HISTORY: Reason for Exam: right knee instability IMPRESSION: No acute fracture or dislocation. Mild tricompartmental osteoarthritis. Quadriceps enthesopathy. No significant knee joint effusion. Nonspecific subtle area of increased lucency best appreciated on lateral view of the patella measuring 6 mm, possibly related to focal osteopenia, subchondral cystic change. Interpreted by: Swathi Osman Preliminary Report By: Bruce Sagastume MD Electronically signed By Swathi Osman Dictated Date: 07/11/2024 8:40:23 AM Prelim Date: 07/11/2024 11:15:04 AM Sign Date: 07/11/2024 11:15:04 AM Ordering Provider: ALPHONSO NOBLE [facility] 04-05-2024 Hospital Discharge instructions Patient Education 04/05/2024 14:26:57 Lumbar Diskectomy, Care After Lumbar Diskectomy, Care After This sheet gives you information about how to care for yourself after your procedure. Your health care provider may also give you more specific instructions. If you have problems or questions, contact your health care provider. What can I expect after the procedure? After the procedure, it is common to have: Pain in the lower back, in the area of the incision. Numbness in the legs or in the lower back. Weakness in the legs. Follow these instructions at home: Incision care Follow instructions from your health care provider about how to take care of your incision. Make sure you: ?Wash your hands with soap and water before you change your bandage (dressing). If soap and water are not available, use hand newspaper library manager. ?Change your dressing as told by your health care provider. You may need to have someone change your dressing for you. ?Leave stitches (sutures), skin glue, or adhesive strips in place. These skin closures may need to stay in place for 2 weeks or longer. If adhesive strip edges start to loosen and curl up, you may trim the loose edges. Do not remove adhesive strips completely unless your health care provider tells you to do that. Check your incision area every day for signs of infection. If you cannot see your incision, have someone check it for you. Check for: ?More redness, swelling, or pain. ?Fluid or blood. ?Warmth. ?Pus or a bad smell. Bathing Do not take baths, swim, or use a hot tub until your health care provider approves. Ask your health care provider if you may take showers. You may only be allowed to take sponge baths. Keep the dressing dry until your health care provider says it can be removed. Activity Return to your normal activities as told by your health care provider. Ask your health care provider what activities are safe for you. Rest as told by your health care provider. Avoid sitting or lying for a long time without moving. Get up to take short walks every 1 2 hours. This is important to improve blood flow and breathing. Ask for help if you feel weak or unsteady. Do not climb stairs more than one time each day until your health care provider approves. Do not bend or twist at the waist until your health care provider approves. To lower yourself to pick things up, bend your knees instead of tipping your upper body forward. Do not lift anything that is heavier than 10 lb (4.5 kg), or the limit that you are told, until your health care provider says that it is safe. Avoid lifting anything above the level of your head. Avoid pushing and pulling motions. Ask your health care provider or physical therapist what kinds of exercises you can do to help with healing. Do these exercises only as directed. Managing pain, stiffness, and swelling If directed, put ice on the injured area: ?Put ice in a plastic bag. ?Place a towel between your skin and the bag. ?Leave the ice on for 20 minutes, 2 3 times a day. Driving Do not drive for 24 hours if you were given a medicine to help you relax (sedative) during your procedure. Do not drive or use heavy machinery while taking prescription pain medicine. Ask your health care provider when it is safe to drive. General instructions Take hhqn-ubn-ydzzemu and prescription medicines only as told by your health care provider. Do not use any products that contain nicotine or tobacco, such as cigarettes and e-cigarettes. These can delay bone healing. If you need help quitting, ask your health care provider. If you are taking prescription pain medicine, take actions to prevent or treat constipation. Your health care provider may recommend that you: ?Drink enough fluid to keep your urine pale yellow. ?Eat foods that are high in fiber, such as fresh fruits and vegetables, whole grains, and beans. ?Limit foods that are high in fat and processed sugars, such as fried or sweet foods. ?Take an autj-txj-jznvbao or prescription medicine for constipation. If you have a back brace, wear it as told by your health care provider. Remove it only as told by your health care provider. Keep all follow-up visits as told by your health care provider. This is important. Contact a health care provider if: You have a fever. Your pain is not controlled with medicine. You have pain, numbness, or weakness that lasts longer than 3 weeks after surgery. You become constipated. You have more redness, swelling, or pain in your incision area. You have fluid or blood coming from your incision. Your incision feels warm to the touch. You have pus or a bad smell coming from your incision. Get help right away if: You have increasing pain, numbness, or weakness. You lose control of when you urinate or have a bowel movement (incontinence). You have chest pain. You have trouble breathing. You have swelling in your legs. You have confusion or are difficult to wake up. Summary After a lumbar diskectomy, it is common to have pain in the lower back and numbness or weakness in the legs. These should improve in a short amount of time. Be sure to check your incision every day for signs of infection. Change dressings and bathe as told by your health care provider. Return to your normal activities as told by your health care provider and physical therapist. Avoid twisting, bending, or lifting until your health care provider approves. Make sure you know which symptoms should cause you to contact your health care provider or to get help right away. This information is not intended to replace advice given to you by your health care provider. Make sure you discuss any questions you have with your health care provider. Document Released: 10/05/2005 Document Revised: 10/13/2018 Document Reviewed: 08/03/2018 [employer] Patient Education 2020 [employer]. Follow Up Care 03/19/2024 14:04:45 With:VIKTOR BARAKAT DO, Orthopedic Address: [address] [place] [address], [address] [facility] [place] [address] [phone] When:04/27/2024 10:30:00 Comments:This is your post-op appointment. Follow-up as scheduled. [facility] 04-05-2024 Note Discharge Instructions Thank you for allowing [facility] to assist you with your healthcare needs. The following is important discharge information regarding your hospital visit. Your Care Team Viktor Barakat DO Your Diagnosis Asthma Hypertension Leukocytosis Lumbar spondylosis LAURA (obstructive sleep apnea) What to do next Instructions From Your Doctor 1. During your procedure, you received sedation through your IV. Please follow these instructions for the next 24 hours: Do not drive a motor vehicle, do not drink any alcoholic beverages, do not sign any legal documents or make personal or business decisions. A responsible adult should stay with you at least 6 hours after the procedure. 2. Keep your surgical site/incision clean and the dressing dry and intact. Do not get the dressing wet. No showering or bathing during the stimulator trial. If you have a permanent spinal cord stimulator, you must cover your incisions with a waterproof dressing to shower. Do not use bathtubs, hot tubs, swimming pools etc. You may use an ice pack at the surgical site to reduce swelling or discomfort. 3. Monitor the incision for any signs or symptoms of infection. Watch for redness, excessive swelling or drainage, or continued pain at the incision site after 3 days. Contact your physician immediately for a fever, chills, or a temperature of 101.5 Fahrenheit or greater. #4 take your medication exactly as prescribed by your physician. Do not attempt to wean yourself off any of your medication even though your pain is improving. This process needs to be carefully monitored by your doctor. Take any antibiotics prescribed exactly as directed until they are gone. 5. Avoid stretching, bending, pulling, twisting or any sudden movements. Do not bend or twist at the waist. Do not raise your arms above your head. Do not lie on your stomach. 6. no lifting greater than 5 pounds. 7. Do not operate a motor vehicle, equipment or power tools while your stimulator is on. 8. Do not have any manipulation done by a chiropractor or any other physician without first consulting with the physician who placed your spinal cord stimulator. 9. Please call if you have any questions, problems, or concerns Scheduled Follow-Up Appointments Appointment Type When With Where Contact Information StatusCV OV 07/10/2024 09:00 AM EDT RAISSA CAMPOS APRN-ANGELO [facility] Confirmed Follow Up Appointments Follow Up with VIKTOR BARAKAT DO, Orthopedic When:04/27/2024 10:30 AM EDT Where:[address] [place] [address], [address] [facility] [place] [address]- [phone] Additional Information: This is your post-op appointment. Follow-up as scheduled. The Following Activity and Diet Have Been Ordered for You No qualifying data available. No qualifying data available. The Following Treatments Have Been Ordered for You Discharge Labs No qualifying data available. Discharge Radiology No qualifying data available. Other Therapies No qualifying data available. Post Acute Orders No qualifying data available. Allergies Bee Stings Cats Grass Itching of skin Mushrooms Swelling of throat Seasonale detergent, TIDE Hives Medications Please ask your primary doctor or pharmacist before taking any other medication not listed, including over the counter drugs, herbal medications, vitamins and or supplements as they may interact with your home medications. What How Much When Why Instructions Last Dose Unchanged acetaminophen-hydrocodone (Cecil 325- 5 mg oral tablet) 1 tab(s) by mouth Every 6 hours as needed for for pain Lumbar spondylosis Duration: [address] [facility]/pharmacy #[id number] Unchanged albuterol (albuterol MDI (90 mcg/ inh) CFC free inhalation aerosol) 2 puff(s) by inhalation Every 4 hours as needed for as needed for wheezing Unchanged isosorbide mononitrate (isosorbide mononitrate 60 mg oral tablet, extended release) 1 tab(s) by mouth Once a day (in the morning) Unchanged metoprolol (Lopressor 25mg--USE metoprolol tartrate 25 mg oral tablet) 1 tab(s) by mouth Two (2) times a day Unchanged rosuvastatin (rosuvastatin 40 mg oral tablet) 1 tab(s) by mouth Once a day Pharmacy Information [facility]/pharmacy #[id number]: [address], [place] [id number] [phone] What How Much When Comments Stop Taking aspirin (aspirin 81 mg oral delayed release tablet) 1 tab(s) by mouth Once a day Stop Taking ibuprofen (ibuprofen 800 mg oral tablet) 1 tab(s) by mouth Three (3) times a day as needed for as needed for pain Please take this list to your next doctor s visit. Bring all medications you take, including over the counter medications, herbals and other supplements with you to your doctor s visit. Patients and families are reminded to discard old lists and to update any records with all medication providers or retail pharmacies. Medication Leaflets acetaminophen and hydrocodone (a SEET a MIN oh fen and john MARTINEZ done) Verdrocet What is the most important information I should know about acetaminophen and hydrocodone? MISUSE OF OPIOID MEDICINE CAN CAUSE ADDICTION, OVERDOSE, OR . Keep the medication in a place where others cannot get to it. Taking opioid medicine during may cause life-threatening withdrawal symptoms in the . Fatal side effects can occur if you use opioid medicine with alcohol, or with other drugs that cause drowsiness or slow your breathing. Stop taking this medicine and call your doctor right away if you have skin redness or a rash that spreads and causes blistering and peeling. What is acetaminophen and hydrocodone? Acetaminophen and hydrocodone is a combination medicine used to relieve moderate to severe pain. Acetaminophen and hydrocodone contains an opioid medicine, and may be habit-forming. Acetaminophen and hydrocodone may also be used for purposes not listed in this medication guide. What should I discuss with my healthcare provider before taking acetaminophen and hydrocodone? You should not use this medicine if you are allergic to acetaminophen or hydrocodone, or if you have: severe asthma or breathing problems; or a blockage in your stomach or intestines. Tell your doctor if you have ever had: breathing problems, sleep apnea (breathing stops during sleep); liver disease; a drug or alcohol addiction; kidney disease; a head injury or seizures; urination problems; or problems with your thyroid, pancreas, or gallbladder. If you use opioid medicine while you are , your baby could become dependent on the drug. This can cause life-threatening withdrawal symptoms in the baby after it is born. Babies born dependent on opioids may need medical treatment for several weeks. Ask a doctor before using opioid medicine if you are . Tell your doctor if you notice severe drowsiness or slow breathing in the nursing baby. How should I take acetaminophen and hydrocodone? Follow all directions on your prescription label. Never take this medicine in larger amounts, or for longer than prescribed. An overdose can damage your liver or cause . Tell your doctor if you feel an increased urge to use more of this medicine. Never share this medicine with another person, especially someone with a history of drug abuse or addiction. MISUSE CAN CAUSE ADDICTION, OVERDOSE, OR . Keep the medicine in a place where others cannot get to it. Selling or giving away this medicine is against the law. Measure liquid medicine carefully. Use the dosing syringe provided, or use a medicine dose-measuring device (not a kitchen spoon). If you need surgery or medical tests, tell the doctor ahead of time that you are using this medicine. You should not stop using this medicine suddenly. Follow your doctor's instructions about tapering your dose. Store at room temperature away from moisture and heat. Keep track of your medicine. You should be aware if anyone is using it improperly or without a prescription. Do not keep leftover opioid medication. Just one dose can cause in someone using this medicine accidentally or improperly. Ask your pharmacist where to locate a drug take-back disposal program. If there is no take-back program, flush the unused medicine down the toilet. What happens if I miss a dose? Since this medicine is used for pain, you are not likely to miss a dose. Skip any missed dose if it is almost time for your next dose. Do not use two doses at one time. What happens if I overdose? Seek emergency medical attention or call the Poison Help line at . An overdose of this medicine can be fatal, especially in a child or other person using the medicine without a prescription. Overdose symptoms may include nausea, vomiting, sweating, severe drowsiness, pinpoint pupils, slow breathing, or no breathing. Your doctor may recommend you get naloxone (a medicine to reverse an opioid overdose) and keep it with you at all times. A person caring for you can give the naloxone if you stop breathing or don't wake up. Your caregiver must still get emergency medical help and may need to perform CPR (cardiopulmonary resuscitation) on you while waiting for help to arrive. Anyone can buy naloxone from a pharmacy or local health department. Make sure any person caring for you knows where you keep naloxone and how to use it. What should I avoid while taking acetaminophen and hydrocodone? Avoid driving or operating machinery until you know how this medicine will affect you. Dizziness or drowsiness can cause falls, accidents, or severe injuries. Do not drink alcohol. Dangerous side effects or could occur. Ask a doctor or pharmacist before using any other medicine that may contain acetaminophen (sometimes abbreviated as APAP). Taking certain medications together can lead to a fatal overdose. What are the possible side effects of acetaminophen and hydrocodone? Get emergency medical help if you have signs of an allergic reaction: hives; difficulty breathing; swelling of your face, lips, tongue, or throat. Opioid medicine can slow or stop your breathing, and may occur. A person caring for you should give naloxone and/or seek emergency medical attention if you have slow breathing with long pauses, blue colored lips, or if you are hard to wake up. In rare cases, acetaminophen may cause a severe skin reaction that can be fatal. This could occur even if you have taken acetaminophen in the past and had no reaction. Stop taking this medicine and call your doctor right away if you have skin redness or a rash that spreads and causes blistering and peeling. Call your doctor at once if you have: noisy breathing, sighing, shallow breathing, breathing that stops; a light-headed feeling, like you might pass out; liver problems--nausea, upper stomach pain, tiredness, loss of appetite, dark urine, crys-colored stools, jaundice (yellowing of the skin or eyes); low cortisol levels-- nausea, vomiting, loss of appetite, dizziness, worsening tiredness or weakness; o high levels of serotonin in the body--agitation, hallucinations, fever, sweating, shivering, fast heart rate, muscle stiffness, twitching, loss of coordination, nausea, vomiting, diarrhea. Serious breathing problems may be more likely in older adults and in those who are debilitated or have wasting syndrome or chronic breathing disorders. Common side effects include: dizziness, drowsiness, feeling tired; nausea, vomiting, stomach pain; constipation; or headache. This is not a complete list of side effects and others may occur. Call your doctor for medical advice about side effects. You may report side effects to FDA at 9-245-SNP-0949. What other drugs will affect acetaminophen and hydrocodone? You may have breathing problems or withdrawal symptoms if you start or stop taking certain other medicines. Tell your doctor if you also use an antibiotic, antifungal medication, heart or blood pressure medication, seizure medication, or medicine to treat HIV or hepatitis C. Opioid medication can interact with many other drugs and cause dangerous side effects or . Be sure your doctor knows if you also use: cold or allergy medicines, bronchodilator asthma/COPD medication, or a diuretic ('water pill'); medicines for motion sickness, irritable bowel syndrome, or overactive bladder; other opioids--opioid pain medicine or prescription cough medicine; a sedative like Valium--diazepam, alprazolam, lorazepam, Xanax, Klonopin, Versed, and others; drugs that make you sleepy or slow your breathing--a sleeping pill, muscle relaxer, medicine to treat mood disorders or mental illness; drugs that affect serotonin levels in your body--a stimulant, or medicine for depression, Parkinson's disease, migraine headaches, serious infections, or nausea and vomiting. This list is not complete. Other drugs may affect acetaminophen and hydrocodone, including prescription and yfil-zwv-cxxhzir medicines, vitamins, and herbal products. Not all possible interactions are listed here. Where can I get more information? Your doctor or pharmacist can provide more information about acetaminophen and hydrocodone. Remember, keep this and all other medicines out of the reach of children, never share your medicines with others, and use this medication only for the indication prescribed. Every effort has been made to ensure that the information provided by [employer]. ('[employer]') is accurate, up-to-date, and complete, but no guarantee is made to that effect. Drug information contained herein may be time sensitive. [employer] information has been compiled for use by healthcare practitioners and consumers in the [place] and therefore [employer] does not warrant that uses outside of the [place] are appropriate, unless specifically indicated otherwise. [employer] drug information does not endorse drugs, diagnose patients or recommend therapy. [employer] drug information is an informational resource designed to assist licensed healthcare practitioners in caring for their patients and/or to serve consumers viewing this service as a supplement to, and not a substitute for, the expertise, skill, knowledge and judgment of healthcare practitioners. The absence of a warning for a given drug or drug combination in no way should be construed to indicate that the drug or drug combination is safe, effective or appropriate for any given patient. [employer] does not assume any responsibility for any aspect of healthcare administered with the aid of information [employer] provides. The information contained herein is not intended to cover all possible uses, directions, precautions, warnings, drug interactions, allergic reactions, or adverse effects. If you have questions about the drugs you are taking, check with your doctor, nurse or pharmacist. Copyright 4042-6018 [facility] Hospital[facility]. Version: 19.02. Revision Date: 02/21/2024. Education Materials Lumbar Diskectomy, Care After This sheet gives you information about how to care for yourself after your procedure. Your health care provider may also give you more specific instructions. If you have problems or questions, contact your health care provider. What can I expect after the procedure? After the procedure, it is common to have: Pain in the lower back, in the area of the incision. Numbness in the legs or in the lower back. Weakness in the legs. Follow these instructions at home: Incision care Follow instructions from your health care provider about how to take care of your incision. Make sure you: ? Wash your hands with soap and water before you change your bandage (dressing). If soap and water are not available, use hand newspaper library manager. ? Change your dressing as told by your health care provider. You may need to have someone change your dressing for you. ? Leave stitches (sutures), skin glue, or adhesive strips in place. These skin closures may need to stay in place for 2 weeks or longer. If adhesive strip edges start to loosen and curl up, you may trim the loose edges. Do not remove adhesive strips completely unless your health care provider tells you to do that. Check your incision area every day for signs of infection. If you cannot see your incision, have someone check it for you. Check for: ? More redness, swelling, or pain. ? Fluid or blood. ? Warmth. ? Pus or a bad smell. Bathing Do not take baths, swim, or use a hot tub until your health care provider approves. Ask your health care provider if you may take showers. You may only be allowed to take sponge baths. Keep the dressing dry until your health care provider says it can be removed. Activity Return to your normal activities as told by your health care provider. Ask your health care provider what activities are safe for you. Rest as told by your health care provider. Avoid sitting or lying for a long time without moving. Get up to take short walks every 1 2 hours. This is important to improve blood flow and breathing. Ask for help if you feel weak or unsteady. Do not climb stairs more than one time each day until your health care provider approves. Do not bend or twist at the waist until your health care provider approves. To lower yourself to pick things up, bend your knees instead of tipping your upper body forward. Do not lift anything that is heavier than 10 lb (4.5 kg), or the limit that you are told, until your health care provider says that it is safe. Avoid lifting anything above the level of your head. Avoid pushing and pulling motions. Ask your health care provider or physical therapist what kinds of exercises you can do to help with healing. Do these exercises only as directed. Managing pain, stiffness, and swelling If directed, put ice on the injured area: ? Put ice in a plastic bag. ? Place a towel between your skin and the bag. ? Leave the ice on for 20 minutes, 2 3 times a day. Driving Do not drive for 24 hours if you were given a medicine to help you relax (sedative) during your procedure. Do not drive or use heavy machinery while taking prescription pain medicine. Ask your health care provider when it is safe to drive. General instructions Take zvnx-rvy-opurvnt and prescription medicines only as told by your health care provider. Do not use any products that contain nicotine or tobacco, such as cigarettes and e-cigarettes. These can delay bone healing. If you need help quitting, ask your health care provider. If you are taking prescription pain medicine, take actions to prevent or treat constipation. Your health care provider may recommend that you: ? Drink enough fluid to keep your urine pale yellow. ? Eat foods that are high in fiber, such as fresh fruits and vegetables, whole grains, and beans. ? Limit foods that are high in fat and processed sugars, such as fried or sweet foods. ? Take an jzda-agd-pesvhvo or prescription medicine for constipation. If you have a back brace, wear it as told by your health care provider. Remove it only as told by your health care provider. Keep all follow-up visits as told by your health care provider. This is important. Contact a health care provider if: You have a fever. Your pain is not controlled with medicine. You have pain, numbness, or weakness that lasts longer than 3 weeks after surgery. You become constipated. You have more redness, swelling, or pain in your incision area. You have fluid or blood coming from your incision. Your incision feels warm to the touch. You have pus or a bad smell coming from your incision. Get help right away if: You have increasing pain, numbness, or weakness. You lose control of when you urinate or have a bowel movement (incontinence). You have chest pain. You have trouble breathing. You have swelling in your legs. You have confusion or are difficult to wake up. Summary After a lumbar diskectomy, it is common to have pain in the lower back and numbness or weakness in the legs. These should improve in a short amount of time. Be sure to check your incision every day for signs of infection. Change dressings and bathe as told by your health care provider. Return to your normal activities as told by your health care provider and physical therapist. Avoid twisting, bending, or lifting until your health care provider approves. Make sure you know which symptoms should cause you to contact your health care provider or to get help right away. This information is not intended to replace advice given to you by your health care provider. Make sure you discuss any questions you have with your health care provider. Document Released: 10/05/2005 Document Revised: 10/13/2018 Document Reviewed: 08/03/2018 [employer] Patient Education 2020 [employer]. Additional Information VACCINATE! IT SAVES LIVES! Members of the community who have not yet received the COVID-19 vaccine and would like to receive it can visit one of [facility] vaccine clinics. There are many vaccine clinic locations within the [facility]. For locations and available times, please visit [email or web address] It is important to note that some COVID mobile vaccine clinics are held outdoors and may be canceled in rainy or stormy conditions. To learn more about pediatric vaccinations (ages 5-11), we invite you to visit the [email or web address] [facility] webpage. [email or web address] -[email or web address] To learn more about the COVID-19 vaccine, we invite you to visit the CDC website for a list of frequently asked questions.https://www.cdc.gov/coronavi matthew/2019-ncov/vaccines/faq.html [facility] Patient Portal Access Instructions: Stay connected with your healthcare team and access your personal medical information anytime with the [facility] Patient Portal. Please follow the directions below to create your [facility] account: 1.Access the email account you provided upon registration to the hospital/physician office.2.Look for an invitation email from [facility].3.Open the email and access the invitation link: Accept Invitation to [facility].4.Fill in the required oh to create your account. To access your account, visit [email or web address]. Click the blue button labeled Access Patient Portal and then log in with the username and password that you created in the steps above. You will be able to view your test results, lab results, a summary of your visits, upcoming appointments and more. There is also a convenient messaging option where you can send secure messages to your provider. In addition, you will have the ability to download any documents or summaries to your computer and/or send the information securely to a physician. Remember that your healthcare information is confidential, so carefully consider who you will allow to register on the [facility] Patient Portal for access to your information. You can also access the [facility] Patient Portal on the [employer] jillian. Simply click on Patient Portal and then log into your account. If you would like to receive a full copy of your medical records, please contact the [facility] Medical Records Department by calling [phone], Tuesday through Tuesday between 8 a.m. and 4:30 p.m. HOW TO SAFELY DISPOSE OF PRESCRIPTION MEDICATIONS Please use one of the following methods to safely dispose of your unused medications. 1.Use a drug disposal kit: the drug disposal pouch allows you to safely discard your old and unused drugs. Ask your nurse to give you one when you are discharged.2.Visit a local take-back location: Many local pharmacies and police departments have programs that collect old and unwanted prescription drugs. Call your local pharmacy or go to http://Sim[employer]/7M8Gn8v to find one close to you.3.Make use of household items: Use cat litter or old coffee grounds to dispose medications if other options are not available. Mix your drugs with these household products, seal them in an airtight container and throw it into the garbage. Call [facility]: [phone] to be sure your drugs can be disposed of in this way. Some medicines may require a different approach.4.Never flush your medications down the toilet. IF YOU HAVE BEEN PRESCRIBED AN OPIOID FOR PAIN If you have been prescribed an opioid (such as hydrocodone, oxycodone or morphine), it is critical to understand the possible side effects and risks of opioid pain medications. Even when taken as directed, opioids can have several side effects including: Tolerance, meaning you might need to take more of a medication for the same pain relief. Nausea, vomiting and/or constipation. Sleepiness, dizziness, dry mouth, confusion, depression or itching. Physical dependence, meaning you have withdrawal symptoms when a medication is stopped, can develop within a few days. KNOW YOUR RESPONSIBILITIES It is important to know exactly how much and how often to take the opioid pain medications you are prescribed. Never take opioids in higher amounts or more often than prescribed. Do not combine opioids with alcohol or other drugs that cause drowsiness, such as benzodiazepines, also known as benzos, including diazepam and alprazolam, muscle relaxants or sleep aids. Never sell or share prescription opioids. This is illegal. Store opioids in a secure place and out of reach of others (including children, family, friends and visitors). The last page of this document has been signed and retained as a CHART COPY. Signatures Patient Education Materials Lumbar Diskectomy, Care After Medication Leaflets acetaminophen and hydrocodone My discharge plan and instructions have been reviewed and explained to me and I,LUCIANO HERNANDEZ understand my current condition and have read and understand these discharge instructions. I have received a written copy of the plan/instructions. If I have questions, I am aware that I should contact my doctor. Patient/Nurses Medical Assistants Phlebotomists Signature: _ Date/Time: Relationship to Patient: Witness Name/Signature: Date/Time: [facility] 04-04-2024 Nurse Progress note Phone report attempted. 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 Patient will remain in PACU. Digitally Signed by ÁNGEL Alvarenga on 04/04/2024 01:13 PM [facility] 04-04-2024 Note ORIGINAL Images acquired, not reported on this accession number. 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 Assessment Postanesthesia assessment Vitals: Vital signs from flowsheet : Vital Signs 04/04/2024 12:05 EDT Temperature Temporal Artery 36.2 DegC Heart Rate Monitored 64 bpm Systolic Blood Pressure Non-Invasive 111 mmHg Diastolic Blood Pressure Non-Invasive 69 mmHg 04/04/2024 12:00 EDT Respiratory Rate - Anes 0 br/min br/min 04/04/2024 11:55 EDT Heart Rate Monitored 50 bpm bpm Respiratory Rate - Anes 7 br/min br/min Systolic Blood Pressure Non-Invasive 100 mmHg mmHg Diastolic Blood Pressure Non-Invasive 71 mmHg mmHg 04/04/2024 11:50 EDT Heart Rate Monitored 54 bpm bpm Respiratory Rate - Anes 6 br/min br/min Systolic Blood Pressure Non-Invasive 99 mmHg mmHg Diastolic Blood Pressure Non-Invasive 71 mmHg mmHg 04/04/2024 11:45 EDT Temperature (Route Not Specified) 35.5 DegC DegC Heart Rate Monitored 59 bpm bpm Respiratory Rate - Anes 8 br/min br/min Systolic Blood Pressure Non-Invasive 101 mmHg mmHg Diastolic Blood Pressure Non-Invasive 71 mmHg mmHg 04/04/2024 11:40 EDT Heart Rate Monitored 62 bpm bpm Respiratory Rate - Anes 8 br/min br/min Systolic Blood Pressure Non-Invasive 95 mmHg mmHg Diastolic Blood Pressure Non-Invasive 64 mmHg mmHg 04/04/2024 11:35 EDT Heart Rate Monitored 64 bpm bpm Respiratory Rate - Anes 8 br/min br/min Systolic Blood Pressure Non-Invasive 98 mmHg mmHg Diastolic Blood Pressure Non-Invasive 73 mmHg mmHg 04/04/2024 11:30 EDT Temperature (Route Not Specified) 35.5 DegC DegC Heart Rate Monitored 67 bpm bpm Respiratory Rate - Anes 8 br/min br/min Systolic Blood Pressure Non-Invasive 112 mmHg mmHg Diastolic Blood Pressure Non-Invasive 75 mmHg mmHg 04/04/2024 11:25 EDT Heart Rate Monitored 73 bpm bpm Respiratory Rate - Anes 8 br/min br/min Systolic Blood Pressure Non-Invasive 122 mmHg mmHg Diastolic Blood Pressure Non-Invasive 83 mmHg mmHg 04/04/2024 11:20 EDT Heart Rate Monitored 77 bpm bpm Respiratory Rate - Anes 8 br/min br/min Systolic Blood Pressure Non-Invasive 148 mmHg mmHg Diastolic Blood Pressure Non-Invasive 91 mmHg mmHg 04/04/2024 11:15 EDT Temperature (Route Not Specified) 35.5 DegC DegC Heart Rate Monitored 52 bpm bpm Respiratory Rate - Anes 8 br/min br/min Systolic Blood Pressure Non-Invasive 162 mmHg mmHg Diastolic Blood Pressure Non-Invasive 106 mmHg mmHg 04/04/2024 11:10 EDT Heart Rate Monitored 47 bpm bpm Respiratory Rate - Anes 8 br/min br/min Systolic Blood Pressure Non-Invasive 132 mmHg mmHg Diastolic Blood Pressure Non-Invasive 93 mmHg mmHg 04/04/2024 11:05 EDT Heart Rate Monitored 48 bpm bpm Respiratory Rate - Anes 8 br/min br/min Systolic Blood Pressure Non-Invasive 102 mmHg mmHg Diastolic Blood Pressure Non-Invasive 81 mmHg mmHg 04/04/2024 11:03 EDT Systolic Blood Pressure Non-Invasive 109 mmHg mmHg Diastolic Blood Pressure Non-Invasive 74 mmHg mmHg 04/04/2024 11:00 EDT Temperature (Route Not Specified) 35.5 DegC DegC Heart Rate Monitored 57 bpm bpm Respiratory Rate - Anes 8 br/min br/min Systolic Blood Pressure Non-Invasive 76 mmHg mmHg Diastolic Blood Pressure Non-Invasive 59 mmHg mmHg 04/04/2024 10:55 EDT Heart Rate Monitored 59 bpm bpm Respiratory Rate - Anes 8 br/min br/min Systolic Blood Pressure Non-Invasive 94 mmHg mmHg Diastolic Blood Pressure Non-Invasive 70 mmHg mmHg 04/04/2024 10:50 EDT Heart Rate Monitored 60 bpm bpm Respiratory Rate - Anes 8 br/min br/min Systolic Blood Pressure Non-Invasive 98 mmHg mmHg Diastolic Blood Pressure Non-Invasive 72 mmHg mmHg 04/04/2024 10:45 EDT Temperature (Route Not Specified) 35.5 DegC DegC Heart Rate Monitored 76 bpm bpm Respiratory Rate - Anes 8 br/min br/min Systolic Blood Pressure Non-Invasive 138 mmHg mmHg Diastolic Blood Pressure Non-Invasive 81 mmHg mmHg 04/04/2024 10:40 EDT Heart Rate Monitored 63 bpm bpm Respiratory Rate - Anes 8 br/min br/min Systolic Blood Pressure Non-Invasive 126 mmHg mmHg Diastolic Blood Pressure Non-Invasive 85 mmHg mmHg 04/04/2024 10:35 EDT Heart Rate Monitored 65 bpm bpm Respiratory Rate - Anes 8 br/min br/min Systolic Blood Pressure Non-Invasive 83 mmHg mmHg Diastolic Blood Pressure Non-Invasive 67 mmHg mmHg 04/04/2024 10:33 EDT Systolic Blood Pressure Non-Invasive 80 mmHg mmHg Diastolic Blood Pressure Non-Invasive 50 mmHg mmHg 04/04/2024 10:30 EDT Temperature (Route Not Specified) 35.5 DegC DegC Respiratory Rate - Anes 9 br/min br/min 04/04/2024 10:25 EDT Respiratory Rate - Anes 7 br/min br/min Systolic Blood Pressure Non-Invasive 164 mmHg mmHg Diastolic Blood Pressure Non-Invasive 128 mmHg mmHg 04/04/2024 10:20 EDT Heart Rate Monitored 58 bpm bpm Respiratory Rate - Anes 0 br/min br/min Systolic Blood Pressure Non-Invasive 125 mmHg mmHg Diastolic Blood Pressure Non-Invasive 73 mmHg mmHg 04/04/2024 10:18 EDT Systolic Blood Pressure Non-Invasive 117 mmHg mmHg Diastolic Blood Pressure Non-Invasive 71 mmHg mmHg 04/04/2024 8:56 EDT Temperature Temporal Artery 36.2 DegC Peripheral Pulse Rate 62 bpm Respiratory Rate 18 br/min Systolic Blood Pressure Non-Invasive 144 mmHg HI Diastolic Blood Pressure Non-Invasive 98 mmHg HI , Measurements from flowsheet . Mental status: alert & oriented x 4. Respiratory function: respirations are non-labored. Respiratory support: none. CV function: Normal rate. Cardiovascular support: none. Pain. Nausea status: see nursing documentation of medications. Postoperative hydration status: within normal limits. Digitally Signed by BOB BERGMAN on 04/04/2024 12:12 PM [facility] 04-04-2024 Anesthesiology Consult note Patient: LUCIANO HERNANDEZ Age: 58 years Sex: Female : 1965 Associated Diagnoses: None Author: BOB BERGMAN Preoperative Information Time of last food or liquid consumption: 04/04/2024 00:00:00 Anesthesia history Patient's history: negative. Family's history: negative. Health Status Allergies: Allergic Reactions (Selected) Severity Not Documented Bee Stings- No reactions were documented. Cats- No reactions were documented. Detergent, TIDE- Hives. Grass- Itching of skin. Mushrooms- Swelling of throat. Seasonale- No reactions were documented., Allergies (6) ActiveReaction Bee StingsNone Documented CatsNone Documented detergent, TIDEHives GrassItching of skin MushroomsSwelling of throat SeasonaleNone Documented Current medications: (Selected) Inpatient Medications Ordered LR 1,000 mL: 125 mL/hr, Intravenous, Stop: 04/04/24 23:59:00 EDT ceFAZolin: 2 gram(s), 200 mL/hr, IV Piggyback, PREOP pharm Outpatient Medications Ordered Sodium Chloride 0.9% intravenous solution 1000 mL: 20 mL/hr, Intravenous Prescriptions Prescribed Lopressor 25mg--USE metoprolol tartrate 25 mg oral tablet: 1 tab(s), Oral, BID, 60 tab(s), 11 Refill(s) Cecil 325- 5 mg oral tablet: 1 tab(s), Oral, q6h, for 7 day(s), PRN: for pain, 28 tab(s), 0 Refill(s) albuterol MDI (90 mcg/inh) CFC free inhalation aerosol: 2 puff(s), Inhalation, q4h, PRN: as needed for wheezing, 1 EA, 1 Refill(s) isosorbide mononitrate 60 mg oral tablet, extended release: 60 mg, 1 tab(s), Oral, qAM, 30 tab(s), 5 Refill(s) rosuvastatin 40 mg oral tablet: 1 tab(s), Oral, qDay, 100 tab(s), 3 Refill(s), Medications (2) Active Scheduled: (1) ceFAZolin 2 gram(s), IV Piggyback, PREOP pharm Continuous: (1) Lactated Ringers 1,000 mL 1,000 mL, Intravenous, 125 mL/hr PRN: (0) Problem list: Medical Patellofemoral arthritis / SNOMED CT 8959765660 / Confirmed Asthma / SNOMED CT [id number] / Confirmed Chest pain in adult / SNOMED CT 16628716 / Confirmed CAD in crow artery / SNOMED CT 66504572 / Confirmed Fatigue / SNOMED CT 308345054 / Confirmed Hyperlipemia / SNOMED CT 23428597 / Confirmed Hyperlipidemia / SNOMED CT [id number] / Confirmed Hypertension / SNOMED CT 2894342272 / Confirmed LAURA (obstructive sleep apnea) / SNOMED CT 633304651 / Confirmed Knee osteoarthritis / SNOMED CT 536090288 / Confirmed Acute pain of left wrist / SNOMED CT 37331952 / Confirmed S/P PTCA (percutaneous transluminal coronary angioplasty) / SNOMED CT 5467815685 / Confirmed Postoperative state / SNOMED CT 59211546 / Confirmed Absence of uterine cervix / SNOMED CT 672474560 / Confirmed Need for vaccination / SNOMED CT 2119192573 / Confirmed, Active Problems (16) Absence of uterine cervix Acute pain of left wrist Asthma CAD in crow artery Chest pain in adult Clostridium difficile infection Fatigue Hyperlipemia Hyperlipidemia Hypertension Knee osteoarthritis Need for vaccination LAURA (obstructive sleep apnea) Patellofemoral arthritis Postoperative state S/P PTCA (percutaneous transluminal coronary angioplasty) Histories Past Medical History: Resolved IBS (irritable bowel syndrome) ([id number]) : Resolved. Gallstones ([id number]): Resolved. Family History: Asthma Mother (Ariela Conteha, ) Heart disease Father (Rex Gómezorrow, ) HTN - Hypertension Sister (Sachi Gómezorrow) Procedure history: Knee ([id number]) on 06/24/2022 at 56 Years. 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 Cardiac catheterization ([id number]) on 04/17/2020 at 54 Years. Comments: 04/30/2020 8:02 EDT - Roberta Basurto MA (ABR-OE) LAD: The proximal vessel is well visualized, large, and mildly calcified; it has mild diffuse disease. Distal vessel lesion: There is an 80% stenosis. LAD disease is severe and amendable to PCI if she fails GDMT. Aggressive medical treatment is recommended. Cardiovascular stress testing ([id number]) on 04/09/2020 at 54 Years. Comments: 04/30/2020 8:04 EDT - Roberta Basurto MA (ABR-OE) Possible mild anterior ischemia. Likely shifting breast attenuation artifact. No evidence of prior infarction. Normal systolic function with EF 70%. Breast reduction ([id number]) on 11/20/2019 at 53 Years. Hysterectomy ([id number]). Jaw ([id number]). Comments: 04/17/2020 7:30 EDT - Marce Dean RN jaw surgery Implantable vibrator bone-conduction hearing implant system ([id number]). Comments: 12/25/2020 12:44 Johana Wren RN Left ear Bunionectomy ([id number]). Comments: 12/25/2020 12:44 Johana Wren RN Bilateral EGD - Esophagogastroduodenoscopy ([id number]). Comments: 12/25/2020 13:26 Johana Wren RN x2 History of tonsillectomy ([id number]). Social History: Social & Psychosocial Habits Alcohol 4Risk Assessment: Denies Alcohol Use 04/04/2024 Use: Never Employment/School 12/22/2023 Status: Unemployed Substance Abuse 4Risk Assessment: Denies Substance Abuse 04/04/2024 Use: Never Tobacco 04/04/2024 Tobacco Use: Never (less than 100 in l Home/Environment 04/04/2024 Living situation: Home/Independent Domestic Concerns None Primary Program Director/Morning Show Host: Self and Axel Current Home Treatments Nebulizer treatments Special Services and Community Resources None Spouse Name Axel Marital Status of Patient if Patient Independent Adult: Nutrition/Health 04/04/2024 Type of diet: Regular Caffeine intake amount: occasional Appetite Fair Eating Difficulties None Skin Breakdown/Decubitus Ulcers No Physical Examination Vital Signs 04/04/2024 10:45 EDT Heart Rate Monitored 76 bpm bpm Respiratory Rate - Anes 8 br/min br/min 04/04/2024 10:40 EDT Heart Rate Monitored 63 bpm bpm Respiratory Rate - Anes 8 br/min br/min Systolic Blood Pressure Non-Invasive 126 mmHg mmHg Diastolic Blood Pressure Non-Invasive 85 mmHg mmHg 04/04/2024 10:35 EDT Heart Rate Monitored 65 bpm bpm Respiratory Rate - Anes 8 br/min br/min Systolic Blood Pressure Non-Invasive 83 mmHg mmHg Diastolic Blood Pressure Non-Invasive 67 mmHg mmHg 04/04/2024 10:33 EDT Systolic Blood Pressure Non-Invasive 80 mmHg mmHg Diastolic Blood Pressure Non-Invasive 50 mmHg mmHg 04/04/2024 10:30 EDT Respiratory Rate - Anes 9 br/min br/min 04/04/2024 10:25 EDT Respiratory Rate - Anes 7 br/min br/min Systolic Blood Pressure Non-Invasive 164 mmHg mmHg Diastolic Blood Pressure Non-Invasive 128 mmHg mmHg 04/04/2024 10:20 EDT Heart Rate Monitored 58 bpm bpm Respiratory Rate - Anes 0 br/min br/min Systolic Blood Pressure Non-Invasive 125 mmHg mmHg Diastolic Blood Pressure Non-Invasive 73 mmHg mmHg 04/04/2024 10:18 EDT Systolic Blood Pressure Non-Invasive 117 mmHg mmHg Diastolic Blood Pressure Non-Invasive 71 mmHg mmHg 04/04/2024 8:56 EDT Temperature Temporal Artery 36.2 DegC Peripheral Pulse Rate 62 bpm Respiratory Rate 18 br/min Systolic Blood Pressure Non-Invasive 144 mmHg HI Diastolic Blood Pressure Non-Invasive 98 mmHg HI Vital Signs(last 24 hrs) Last Charted Heart Rate [id number] bpm (APRIL 04 10:45) CEQ828 mmHg (APRIL 04 10:40) DBP85 mmHg (APRIL 04 10:40) Measurements from flowsheet : Measurements 04/04/2024 8:56 EDT Height 157.8 cm Height in inches 62.1 inch(es) Admission Weight 59.09 kg Weight Lbs 130 lb [place] Body Weight 50.39 kg Admission Body Mass Index 23.73 m2 Pain assessment: Pain Assessment 04/04/2024 8:56 EDT Primary Pain Location Mid back Primary Pain Intensity 8 Pain Scale Type 0-10 Pain scale . General: Alert and oriented. Airway: Normal temporomandibular joint mobility, Normal mouth, Normal neck range of motion. Mallampati classification: III (soft palate, base of uvula visible). Dentition Evaluation: Denies loose/chipped teeth. Respiratory: Respirations are non-labored. Cardiovascular: Normal rate. Neurologic: Alert, Oriented. Review / Management Results review: No qualifying data available , Lab results 04/04/2024 10:45 EDT Heart Rate Monitored 76 bpm bpm Respiratory Rate - Anes 8 br/min br/min Oxygen Saturation 100 % % Set Rate Anes 8 br/min br/min 04/04/2024 10:40 EDT SN - Proc - Anesthesia Type General, Local SN - Proc - Actual Procedure T9-T10 LAMINECTOMY, IMPLANTATION OF PERMANENT SPINAL CORD STIMULATOR LEAD AND GENERATOR 04/04/2024 10:40 EDT SN - [facility] - Thermals Forced Air Warming Device Upper Body SN - [facility] - Anti-thromboembolism Joleen Sequential Compression Device (SCD) 04/04/2024 10:40 EDT SN - NM - Medication SEALANT 8ML SURGIFLOW 6/BX 2994 SN - NM - Route of Administration Local SN - NM - By (Single) SN - NM - By (Single) 04/04/2024 10:40 EDT Heart Rate Monitored 63 bpm bpm Respiratory Rate - Anes 8 br/min br/min Systolic Blood Pressure Non-Invasive 126 mmHg mmHg Diastolic Blood Pressure Non-Invasive 85 mmHg mmHg Oxygen Saturation 99 % % SN - NM - Medication MARCAINE BUPIVACAINE 0.25% 30ML SN - NM - Route of Administration Local SN - NM - By (Single) SN - NM - By (Single) Set Rate Anes 8 br/min br/min 04/04/2024 10:39 EDT SN - GCD - ASA Class 3 SN - GCD - Post-operative Diagnosis SPINAL STENOSIS, LUMBAR REGION WITHOUT NEUROGENIC CLAUDICATION SN - GCD - Case Level Level 4 04/04/2024 10:36 EDT SN - Cul - Culture Type No Specimen per Surgeon 04/04/2024 10:35 EDT Heart Rate Monitored 65 bpm bpm Respiratory Rate - Anes 8 br/min br/min Systolic Blood Pressure Non-Invasive 83 mmHg mmHg Diastolic Blood Pressure Non-Invasive 67 mmHg mmHg Oxygen Saturation 99 % % Set Rate Anes 8 br/min br/min 04/04/2024 10:33 EDT Systolic Blood Pressure Non-Invasive 80 mmHg mmHg Diastolic Blood Pressure Non-Invasive 50 mmHg mmHg 04/04/2024 10:30 EDT Respiratory Rate - Anes 9 br/min br/min Oxygen Saturation 100 % % Set Rate Anes 8 br/min br/min 04/04/2024 10:25 EDT Respiratory Rate - Anes 7 br/min br/min Systolic Blood Pressure Non-Invasive 164 mmHg mmHg Diastolic Blood Pressure Non-Invasive 128 mmHg mmHg Oxygen Saturation 100 % % Set Rate Anes 8 br/min br/min 04/04/2024 10:20 EDT Heart Rate Monitored 58 bpm bpm Respiratory Rate - Anes 0 br/min br/min Systolic Blood Pressure Non-Invasive 125 mmHg mmHg Diastolic Blood Pressure Non-Invasive 73 mmHg mmHg Oxygen Saturation 95 % % 04/04/2024 10:18 EDT Systolic Blood Pressure Non-Invasive 117 mmHg mmHg Diastolic Blood Pressure Non-Invasive 71 mmHg mmHg 04/04/2024 10:17 EDT SN - CTm - Anesthesia Start Time Anesthesia Start 04/04/2024 10:03 EDT SN - Assess - LOC Alert, Awake SN - Assess - Orientation Oriented X 3, Other SN - Assess - Post-op Skin Integrity Intact/Dry 04/04/2024 10:03 EDT SN - XI - X-Ray Type C-Arm 04/04/2024 10:02 EDT Patient Instructions Documentation Patient Instructions Documentation 04/04/2024 10:01 EDT IHC At-Risk Indicator YES 04/04/2024 10:01 EDT SN - CAt - Case Attendee SN - CAt - Case Attendee SN - CAt - Case Attendee SN - CAt - Case Attendee SN - CAt - Case Attendee SN - CAt - Case Attendee SN - CAt - Case Attendee SN - CAt - Case Attendee SN - CAt - Case Attendee SN - CAt - Case Attendee SN - CAt - Case Attendee SN - CAt - Case Attendee SN - CAt - Case Attendee SN - CAt - Case Attendee SN - CAt - Case Attendee SN - CAt - Case Attendee SN - CAt - Role Performed Primary Surgeon SN - CAt - Role Performed FINISHING ROOM SUPERVISOR SN - CAt - Role Performed Mobile Patrol Officer 1 SN - CAt - Role Performed Scrub 1 SN - CAt - Role Performed Injection Molding Machine Setter 1 SN - CAt - Role Performed X-Ray Tech SN - CAt - Role Performed Strategic Manager SN - CAt - Role Performed Strategic Manager 04/04/2024 9:49 EDT IHC At-Risk Indicator YES 04/04/2024 9:09 EDT Lactated Ringers Injection Begin Bag 1,000 mL mL 04/04/2024 9:03 EDT SN - Preop - CTm Pt Ready for OR/Proced 04/04/2024 9:03 04/04/2024 9:03 EDT SN - Preop - CTm Pt in SDS Room 04/04/2024 8:42 04/04/2024 9:00 EDT Forearm Left 04/04/2024 20 gauge Peripheral IV Activity: Insert new site Peripheral IV Dressing Condition: Clean, Dry, Intact Peripheral IV Dressing Activity: Transparent dressing Peripheral IV Line Status/Patency: Flushes easily, Continuous infusion Peripheral IV Site Condition: No complications Peripheral IV Number of Attempts: 1 04/04/2024 8:56 EDT Height 157.8 cm Height in inches 62.1 inch(es) Admission Weight 59.09 kg Weight Lbs 130 lb [place] Body Weight 50.39 kg Admission Body Mass Index 23.73 m2 Temperature Temporal Artery 36.2 DegC Peripheral Pulse Rate 62 bpm Respiratory Rate 18 br/min Systolic Blood Pressure Non-Invasive 144 mmHg HI Diastolic Blood Pressure Non-Invasive 98 mmHg HI Primary Pain Location Mid back Primary Pain Intensity 8 Pain Scale Type 0-10 Pain scale Respirations Unlabored Respiratory Pattern Regular Breath Sounds Auscultated Anterior and posterior All Lobes Breath Sounds Clear Oxygen Therapy Room air Oxygen Saturation 96 % Abdomen Description Non-distended, Symmetric Abdomen Palpation Non-Tender Skin Temperature Warm Skin Description Normal for ethnicity Skin Integrity Intact Mucous Membrane Color [place] Aire Skin Moisture General Dry Neurological Symptoms Patient denies Level of Consciousness Alert Strength All Extremities Strong Tone All Extremities Normal Sensation All Extremities Intact Affect/Behavior Appropriate, Calm, Cooperative Orientation Oriented x 4 Activity Status ADL Awake Standard Safety ID band on, Allergy Band on, Call device within reach, Bed in low position, Wheels locked, Visitor at bedside, Safety level maintained 04/04/2024 8:54 EDT CHG Preoperative Wash/Wipe Site specific wipe Preop Nasal Swab Povidone-Iodine 04/04/2024 8:50 EDT Designated Person #1 We May Share LOULOU Hernandez [phone] Designated Person #1 Relationship Spouse Privacy Restrictions Requested None Status No, per patient Sensory Deficits Hearing deficit, left ear, Hearing deficit, right ear Sleep Apnea Snore No Sleep Apnea Tired Yes Sleep Apnea Obstruction Yes Sleep Apnea Pressure Yes Sleep Apnea BMI No Sleep Apnea Age Yes Sleep Apnea Neck No Sleep Apnea Gender No Sleep Apnea Score 4 Diagnosed With Sleep Apnea No Advanced Directives No - refuses information Infectious Disease Symptoms Patient states no symptoms Infectious Disease Recent Exposure No Alcohol and Drug Use No Employee of Institutional Living No Health Care Employee No History of Exposure to TB No History of Positive Chest X-Ray for TB No History of Positive TB Skin Test No Homeless No Known Immunosuppression No Recent Immigrant No Resident of Institutional Living No Bloody Sputum No Fatigue No Fever No Loss of Appetite No Night Sweats No Persistent Cough > 3 Weeks No Weight Loss No Pre-Op Patient Education NPO after midnight, No smoking after midnight, No makeup, No jewelry, Aware of surgery location, Pre-op education done, 1 bottle CHG wash with instructions given, Instructed to take ordered medications SN - Preprocedure Comments Spoke with patient, Verbalizes/Nonverbally indicates understanding, Other: METOPROLOL, ISOSORBIDE. BRING ALB INH Barriers to Learning Cognitive deficits, Literacy Teaching Method Explanation, Printed materials Preferred Spoken Language [place]ian Preferred Written Language [place]ian Teaching Evaluation Verbalizes/Nonverbally indicates understanding Safety Brochure Information Reviewed Yes Kaya Navarro Video Viewed No Information Given by Patient Patient's Current Physicians Patient's Current Physicians Discharge To, Anticipated Home independently Prev Test Positive/Diagnosis w/COVID-19 Yes Previous COVID-19 Positive Date 12/2023 Current Quarantine/Isolated any Illness No Any Contact with Sick Animals/Birds No Traveled Anywhere in Last 30 Days No Lost Weight Unintentionally Recently No Eat Poorly Due to Decreased Appetite No Total MST Score 0 No Personal Devices, Patient Valuables Glasses, Hearing aid, left Anesthesia/Transfusions Prior anesthesia Admission Note-Nursing Same Day Patient History 04/04/2024 8:43 EDT IV Present Present Allergies Yes Anesthesia Extension Set Applied Yes Machine Washer On Yes Consent Form Signed Yes Patient Dressed In Hospital gown CHG Preoperative Wash/Wipe Night before procedure, Day of procedure CHG Skin Prep Completed for Eligible Surgery History & Physical On Chart Yes Obstructive Sleep Apnea Assess Completed Yes NPO Status Maintained Allergy Band on and Verified Yes Patient ID Band on and Verified Yes Implants Verified Yes Site Verified by Patient/Family Yes Blood Consent Signed Yes Last Fluid Intake 04/04/2024 6:00 Last Food Intake 04/03/2024 16:00 04/04/2024 8:41 EDT IHC At-Risk Indicator YES 04/03/2024 7:18 EDT IHC At-Risk Indicator YES 04/03/2024 6:01 EDT CSummary CSUMMARY . Assessment and Plan [place] [employer] (ASA) physical status classification: Class III. Anesthetic Preoperative Plan Anesthetic technique: General. Informed consent: signed by patient. Digitally Signed by BOB BERGMAN on 04/04/2024 10:52 AM [facility] 03-22-2024 Note ORIGINAL EXAMINATION: TWO XRAY VIEWS OF THE CHEST 03/22/2024 9:28 am COMPARISON: Chest x-ray on 02/13/2024 HISTORY: ORDERING SYSTEM PROVIDED HISTORY: Reason for Exam: Pre-admission testing FINDINGS: The heart size and mediastinal contours are normal. There is no lung infiltrate or edema. No pneumothorax or pleural fluid is present. The skeletal structures are unremarkable. IMPRESSION: No acute cardiopulmonary process. Interpreted by: Chris Knowles MD Preliminary Report By: Chris Knowles MD Electronically signed By Chris Knowles MD Dictated Date: 03/23/2024 1:54:08 AM Prelim Date: 03/23/2024 1:55:35 AM Sign Date: 03/23/2024 1:55:35 AM Ordering Provider: VI[facility]TOR [facility] 02-13-2024 Note ORIGINAL EXAMINATION: TWO XRAY VIEWS OF THE CHEST02/13/2024 8:48 am COMPARISON: 05/27/2022 HISTORY: ORDERING SYSTEM PROVIDED HISTORY: Reason for Exam: PRE-OP, ASTHMA FINDINGS: The heart size is normal. There is no pulmonary consolidation. No pneumothorax or pleural effusion. No aggressive osseous lesions identified. Spurring noted in the spine. Surgical clips seen in the upper abdomen. IMPRESSION: No acute radiographic findings. Interpreted by: Charlie Riley MD Preliminary Report By: Charlie Riley MD Electronically signed By Charlie Riley MD Dictated Date: 02/13/2024 9:08:57 AM Prelim Date: 02/13/2024 9:13:26 AM Sign Date: 02/13/2024 9:13:26 AM Ordering Provider: VIKTOR [facility] 05-27-2022 Note ORIGINAL EXAMINATION: TWO XRAY VIEWS [...] 05/27/2022 11:04:12 AM Ordering Provider: MILY GIBSON [facility] 05-27-2022 Note ORIGINAL EXAMINATION: TWO XRAY VIEWS [...] 05/27/2022 11:04:12 AM Ordering Provider: MILY GIBSON [facility] 01-02-2022 Evaluation + Plan note Future Scheduled TestsXR Wrist Minimum 3 Views Left 01/02/22XR Wrist Minimum 3 Views Left 01/02/22 [facility] 01-02-2022 Evaluation + Plan note Future Scheduled TestsXR Wrist Minimum 3 Views Left 01/02/22XR Wrist Minimum 3 Views Left 01/02/22 [facility] Evaluation + Plan note Future Appointments Appointment Date:11/16/2021 09:00:00 AM Scheduled Provider: Location:[facility] Appointment Type:COVID AMB VACCINE Appointment Date:12/10/2021 09:15:00 AM Scheduled Provider:RAISSA CAMPOS Location:[facility] Appointment Type:CV OV [facility] Evaluation + Plan note Future Appointments Appointment Date:06/08/2022 08:00:00 AM Scheduled Provider:MICHELLE MONTERROSO DO Location:[facility] Appointment Type:PC OV Pre Op Appointment Date:09/21/2022 10:15:00 AM Scheduled Provider: Location:[facility] Appointment Type:COVID AMB VACCINE Appointment Date:2022 10:00:00 AM Scheduled Provider:RAISSA CAMPOS Location:[facility] Appointment Type:CV OV Future Scheduled TestsXR Wrist Minimum 3 Views Left 01/02/22XR Wrist Minimum 3 Views Left 01/02/22 [facility] Evaluation + Plan note Future Appointments Appointment Date:06/09/2023 10:00:00 AM Scheduled Provider:RAISSA CAMPOS Location:[facility] Appointment Type:[facility] Evaluation + Plan note Future Appointments Appointment Date:01/04/2024 09:15:00 AM Scheduled Provider:RAISSA CAMPOS Location:[facility] Appointment Type:[facility] Evaluation + Plan note Future Appointments Appointment Date:07/10/2024 09:00:00 AM Scheduled Provider:RAISSA CAMPOS Location:[facility] Appointment Type:[facility] Evaluation + Plan note Future Appointments Appointment Date:04/02/2024 10:30:00 AM Scheduled Provider: Location:[facility] Appointment Type:MEDS - COPD/Asthma Appointment Date:07/10/2024 09:00:00 AM Scheduled Provider:RAISSA CAMPOS Location:[facility] Appointment Type:[facility] Evaluation + Plan note Future Appointments Appointment Date:07/17/2024 08:30:00 AM Scheduled Provider: Location:[facility] Appointment Type:MEDS - COPD/Asthma Appointment Date:02/05/2025 09:00:00 AM Scheduled Provider:RAISSA CAMPOS Location:[facility] Appointment Type:[facility] Hospital course Narrative No data available for this section [facility] Hospital Discharge instructions No data available for this section [facility] Progress note No data available for this section [facility] Summary Purpose Family History No Family History Records Found Advance Directives No Advanced Directives Records Found Additional Source Comments Care Team (unrecognized sect ion and content) Personnel Name: MICHELLE MONTERROSO DO Address: [address] [place] [address] Care Team Personnel Name: MICHELLE MONTERROSO DO Position: P4 Physician - Primary Care Member Role: Primary Care Physician Address: Address: [address] [place] [address] Care Team Related Persons Name: ENID HERNANDEZ Address: Home [address] [place], [place] [id number] Address: Temporary [address] [place], [place] [id number] Care Team Personnel Name: MICHELLE MONTERROSO DO Position: P4 Physician - Primary Care Member Role: Primary Care Physician Address: Address: [address] [place] [address] Care Team Related Persons Name: ENID HERNANDEZ Address: Home [address] [place], [place] [id number] Address: Temporary [address] [place], [place] [id number] Care Team Personnel Name: MICHELLE MONTERROSO DO Position: P4 Physician - Primary Care Member Role: Primary Care Physician Address: Address: [address] [place] [id number] [place] [address] Care Team Related Persons Name: ENID HERNANDEZ Address: Home [address], [place] [id number] Address: Temporary [address], [place] [id number] Care Team Personnel Name: MICHELLE MONTERROSO DO Position: P4 Physician - Primary Care Member Role: Primary Care Physician Address: Address: [address] [place] [address] Care Team Related Persons Name: ENID HERNANDEZ R Address: Home [address], [place] [id number] Address: Temporary [address], [place] [id number] Care Team Personnel Name: MICHELLE MONTERROSO DO Position: P4 Physician - Primary Care Member Role: Primary Care Physician Address: Address: [address] [place] [phone] Care Team Related Persons Name: ENID HERNANDEZ Address: Home [address], [place] [id number] Address: Temporary [address], [place] [phone] Care Team Personnel Name: MICHELLE MONTERROSO DO Position: P4 Physician - Primary Care Member Role: Primary Care Physician Address: Address: [address] [place], [place] [id number] Care Team Related Persons Name: AXEL HERNANDEZ R Address: Home [address], [place] [id number] Address: Temporary [address], [place] [id number] Care Team Personnel Name: MICHELLE MONTERROSO DO Position: P4 Physician - Primary Care Member Role: Primary Care Physician Address: Address: [address] [place] [id number] Care Team Related Persons Name: ENID HERNANDEZ Address: Home [address] [place], [place] [id number] Address: Temporary [address] [place], [place] [phone] Care Team (unrecognized sect ion and content) Care Team Personnel Name: MICHELLE MONTERROSO DO Position: P4 Physician - Primary Care Med Service: Active Provider Member Role: Primary Care Physician Address: Address: [address] [place] [address] Care Team Related Persons Name: ENID HERNANDEZ Address: Home [address] [place], [place] [id number] Address: Temporary [address] [place], [place] [phone] Care Team Personnel Name: MICHELLE MONTERROSO DO Position: P4 Physician - Primary Care Member Role: Primary Care Physician Address: Address: [address] [place] [id number] Care Team Related Persons Name: ENID HERNANDEZ R Address: Home [address] [place], [place] [id number] Address: Temporary [address] [place], [place] [phone] INFORMATION SOURCE (unrecogn ized section and content) DATE CREATED AUTHOR 07/17/2024 [facility] FOR RECORDS PERTAINING TO PATIENTS WHO ARE [...] BE BASED ON THE PRIMARY CLINICAL RECORDS. [facility] [employer] [facility]. provides no warranty or guarantee of the accuracy or completeness of information in this document.
--- NOTE | 2024-09-10 06:38 | PRE.ANES_ITS ---
ASA Classification* ASA Classification ASA Classification: 3 Assessment & Plan Anesthesia* Anesthesia Assessment Anesthesia Assessment: Discussed sedation and/or anesthesia options, risks, benefits, and alternatives with patient/parents/legal guardian/POA. Questions invited. The patient/parents/legal guardian/POA seems to understand and agrees to proceed with anesthesia plan. Reviewed the physical assessment, medical history, allergy history and patient home medications list prior to surgery/procedure/anesthetic and documented any changes. Performed airway and anesthesia risk assessments. Anesthesia Type Anesthesia Type: MAC Anesthesia Focused Assessment* Temperature: 97.9 F Pulse Rate: 77 Blood Pressure: 104/75 Respiratory Rate: 16 Pulse Ox: 98 Airway Assessment Mouth opens: >3 cm Mallampati Score: II Focused Labs Anesthesia Preop lab: CBC WBC 7.0 K/mm3 (4.4-11.0) 07/26/23 08:10 RBC 4.61 M/mm3 (4.2-5.4) 07/26/23 08:10 Hgb 13.1 g/dL (12.0-15.0) 07/26/23 08:10 Hct 41.4 % (37-47) 07/26/23 08:10 Plt Count 318 K/mm3 (150-450) 07/26/23 08:10 CHEMISTRY Potassium 3.4 mmol/L (3.5-5.1) L 07/26/23 08:10 Sodium 141 mmol/L (136-145) 07/26/23 08:10 BUN 6 mg/dL (7-18) L 07/26/23 08:10 Creatinine 0.90 mg/dL (0.55-1.02) 07/26/23 08:10 Glucose 112 mg/dL (74-106) H 07/26/23 08:10 POC Glucose 108 mg/dL (70-110) 11/20/19 06:02 COAG Pre-Assessment Diagnosis/Proposed Procedure Planned Operative Procedure(s): EGD Anesthesia History 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 When Was Last Pacemaker Check QUESTION #4 FULL TEXT: You/Your Family Experience fever (hyperthermia) with Anesthesia Last Oral Intake Last Oral intake: Last Oral Intake NPO since 18:00 09/10/24 06:13 Meds taken in AM with sips of Yes 09/10/24 06:13 water? Meds patient instructed to metoprolol 09/10/24 06:13 take am of surgery PONV PONV - garment steamer: PONV - garment steamer Female No 09/06/24 14:36 HX of Motion Sickness No 09/06/24 14:36 HX of N/V After Surgery No 09/06/24 14:36 Non-Smoker Yes 09/06/24 14:36 Duration of Surgery greater No 09/06/24 14:36 than 60 minutes Number of Risk Factors 1 09/06/24 14:36 PONV Score Low Risk 09/06/24 14:36 Height & Weight Height & Weight: Anesthesia: Height & Weight Height 5 ft 2 in 09/10/24 06:13 Weight: 72.7 kg 09/10/24 06:13 Body Mass Index (BMI) 29.2 09/10/24 06:13 Respiratory Assessment Respiratory Assessment - garment steamer: Respiratory Tract Infection Hx - garment steamer Hx Respiratory Tract Infection No 09/06/24 14:36 STOP Sleep Apnea STOP Sleep Apnea - garment steamer: STOP Sleep Apnea - garment steamer Hx Hypertension Yes: CONTROLLED WITH MEDS 09/06/24 14:36 Hx Sleep Apnea No 09/06/24 14:36 CPAP No 08/04/23 16:17 BIPAP No 06/14/22 10:40 Do you snore loudly (louder No 09/06/24 14:36 than talking or can be heard Do you often feel tired/ No 09/06/24 14:36 fatigued/ sleepy during daytime? Has anyone observed you stop No 09/06/24 14:36 breathing during sleep? STOP Results Negative 09/06/24 14:36 QUESTION #5 FULL TEXT : Do you snore loudly (louder than talking or can be heard through closed doors)? 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 Specify any problems Hx of Preganancy in last 3 No 09/06/24 14:36 Months Nurse Filling Out Transfusion [email or web address] 09/06/24 14:36 & Questions: Date: 09/06/24 09/06/24 14:36 Time: 14:41 09/06/24 14:36 Patient unable to answer at this time (ie. confused, unrespo /Reproduction History /Reproductive History - garment steamer: /Reproductive Hx- garment steamer Hx Now Gestational Age (in weeks): EDC: Hx Hx Para Hx Section SAB No 06/02/23 10:47 PFSH Medical History Back pain Depression Migraine headache Difficulty swallowing Wears hearing aid Shortness of breath on exertion Hypertension Wears glasses High cholesterol Non-smoker History of stress test Cardiology follow-up encounter Status post placement of bone anchored hearing aid (BAHA) Unspecified open wound of right cheek and temporomandibular area, sequela Actinic keratosis Intertrigo Shoulder pain Chronic thoracic back pain Chronic neck pain Macromastia COPD (chronic obstructive pulmonary disease) Home Medications ?Medication ?Instructions ?Recorded ?Last Taken ?Type albuterol sulfate 90 mcg/actuation 2 puff inhalation Q6H PRN PRN 01/01/15 09/09/24 History aerosol inhaler Wheezing metoprolol succinate 25 mg 25 mg PO DAILY htn 07/24/20 09/10/24 History tablet,extended release 24 hr aspirin 81 mg chewable tablet 81 mg PO DAILY 08/05/21 09/03/24 History hydrocodone-acetaminophen 5-325mg 1 tab PO Q6H PRN pain 3 days #12 08/04/23 Un known Rx 5mg-325mg tabs Allergy/AdvReac Type Severity Reaction Status Date / Time bee venom protein (honey bee) Allergy Intermediate Edema Verified 09/10/24 06:12 mushroom Allergy Intermediate Edema Verified 09/10/24 06:12 poison torin extract Allergy Rash Verified 09/10/24 06:12 poison oak extract Allergy Rash Verified 09/10/24 06:12 cat dander AdvReac Intermediate Itching Verified 09/10/24 06:12 and sneezing Family History Other Asthma Family history of skin cancer Surgical History S/P placement of nerve stimulator History of left knee surgery History of esophagogastroduodenoscopy (EGD) History of coronary artery stent placement History of cardiac catheterization Hx of nasal septoplasty Hx of tonsillectomy History of bunionectomy Hx of plastic surgery Hx of hysterectomy S/P bilateral breast reduction History of excision of lesion Social History Smoking Status: Never smoker alcohol intake: never substance use type: does not use additional social history: DOES NOT USE ASPIRIN DOES NOT USE IBUPROFEN Review of Systems (Anesthesia) ROS Narrative System reviewed and no additional complaints, except as documented.
--- NOTE | 2024-09-10 07:00 | EGD_PTH ---
PATHOLOGY RESULTS PATIENT: LUCIANO OLCO LOC: EN U#:[id number] AGE/SX: 58/F ROOM: RE09/10/[address]: Dr. Be Chapman DO : 1965 BED: DIS: 09/10/2024 SPEC #: [id number] RECD: 09/10/24 12:06 STATUS: VERÓNICA PAGE #: [id number] JESSICA: 09/10/24 07:[address]: Be Chapman DEPT: SURGICAL PATHOLOGY RECD BY: Ovi Lang ENTERED: 09/10/24 12:48 SP TYPE: EGD BIOPSY MACI DR: Dr. Nayely Villalobos DO Tissues: Esophagus, NOS Procedures: Special Stain Group I Surgery Specimen Level IV Alcian Blue/PAS (control) HEADER OPERATION: EGD biopsy, esophageal dilitation PRE-OP DIAGNOSIS: Dysphagia TISSUE SUBMITTED: Distal esophagus biopsy MICROSCOPIC DIAGNOSIS Distal esophagus, biopsy: Fragments of gastroesophageal mucosa with focal intestinal metaplasia (goblet cell metaplasia), consistent with Staples's esophagus. Moderate to marked acute and chronic inflammation. Negative for dysplasia. See comment. 09/11/2024 COMMENT Increased number of eosinophils consistent with eosinophilic esophagitis are not seen. Alcian blue/PAS stain with matched control is used in the evaluation of the specimen. Immunohistochemistry ([id number]) for P53 and Ki-67 is being performed and results will be reported separately. Correlation with clinical, endoscopic findings and appropriate follow-up are necessary. MICROSCOPIC DESCRIPTION Slides are reviewed. GROSS DESCRIPTION Received in fixative is one container labeled with the patient's name and designated Distal esophagus biopsy. The specimen consists of multiple irregular fragments of light segura soft tissue that in aggregate measure 1.5 x 0.6 x 0.1 cm. The specimen is totally submitted in one cassette. 09/10/2024 TC:3 CPT:64530,22123
--- NOTE | 2024-09-10 07:08 | HP.PCM_ITS ---
History and Physical Date of Admission: 09/10/24 I established 08.03.21 with history of dysphagia requiring esophageal dilation; most recently performed [facility] 5 years prior. Currently feels that food is sticking mid-esophagus requiring multiple attempts to clear food. ? EGD 08.10.21 LA Grade B esophagitis; moderate, benign, intrinsic stenosis 39cm, Sandoval dilator 38F; gastritis. No metaplasia. H.Pylori neg. ? Start PPI taper OV 09.04.21 doing well with use of PPI. OV 09.23.22 cardiology stopped PPI; declines H2 terry. ? EGD 11.09.22 tortuous esophagus; irregular Zline 37cm; small hiatal hernia; moderate, benign, intrinsic stenosis 39cm, Savary dilator 60F. No metaplasia ? EGD 06.06.23 LA Grade A esophagitis; moderate Schatzki ring upper esophagus, Savary 54F; moderate Schatzki ring lower esophagus, Savary 54F; small hiatal hernia. OV 07.08.23 she continues to have food sticking and will pass with liquids; reports this is related to her asthma that she feels acts up a lot when she eats, she is not seeing a industrial yard brake coupler currently and is open to doing this. She is attending carpal tunnel surgery after this.LUCIANO LOCO, is a 57 F who presents to the office today for ROS Const Constitutional: No fatigue ENT ENT: Positive for difficulty swallowing Gastro GI: Positive for difficulty swallowing; No abdominal pain, belching, bloating, change in bowel habits, change in stool character, coffee ground emesis, constipation, cramping, diarrhea, heartburn, feeling full early, excessive flatus, incontinent of stools, Vomiting blood/hematemesis, Blood in stool, loose stools, Black,tarry stools, nausea/dyspepsia, pain with swallowing, vomiting or other Musc Musculoskeletal: No joint pain Skin Skin: No yellowing of the eye or itchy eyes Psych Psychiatric: No anxiety and No depression Endo Endocrine: No fatigue Aller/Imm Allergy/Immunologic: No itchy eyes Arsen/Lymp Hematologic/Lymphatic: No easy bleeding or easy bruising Exam Const General: cooperative and comfortable Nutritional Appearance: overweight Orientation: alert, awake and oriented x3 Quality Reporting Tobacco Screening ([facility] 138) Smoking Status: Never smoker Assessment and Plan Assessment and Plan (1) Dysphagia: Status: Acute Qualifiers: Dysphagia type: esophageal phase Qualified Code(s): R13.19 - Other dysphagia Orders: Referrals Pulmonary Medicine J45.909 - Unspecified asthma, uncomplicated, R13.10 - Dysphagia, unspecified I have examined the patient and the H&P has been reviewed. There are no clinical changes since date of exam.
--- NOTE | 2024-09-10 07:33 | OP.EGD_ITS ---
Patient Name: Jazlyn Hernandez Procedure Date: 09/10/2024 7:13 AM Date of : 1965 Age: 58 Procedure: Upper GI endoscopy Indications: Dysphagia, Suspected esophageal reflux, Suspected Staples's esophagus Providers: Be Chapman DO Referring MD: Nayely Villalobos Medicines: Monitored Anesthesia Care Patient Profile: This is a 58 year old female. Refer to note in patient chart for documentation of history and physical. Patient has symptoms of dysphagia with solids. Complications: No immediate complications. Procedure: Pre-Anesthesia Assessment: - Prior to the procedure, a History and Physical was performed, and patient medications and allergies were reviewed. The patient is competent. The risks and benefits of the procedure and the sedation options and risks were discussed with the patient. All questions were answered and informed consent was obtained. Patient identification and proposed procedure were verified by the physician in the pre-procedure area. Mental Status Examination: alert and oriented. Airway Examination: normal oropharyngeal airway and neck mobility. Respiratory Examination: clear to auscultation. CV Examination: normal. Prophylactic Antibiotics: The patient does not require prophylactic antibiotics. Prior Anticoagulants: The patient has taken no anticoagulant or antiplatelet agents. ASA Grade Assessment: II - A patient with mild systemic disease. After reviewing the risks and benefits, the patient was deemed in satisfactory condition to undergo the procedure. The anesthesia plan was to use monitored anesthesia care (MAC). Immediately prior to administration of medications, the patient was re-assessed for adequacy to receive sedatives. The heart rate, respiratory rate, oxygen saturations, blood pressure, adequacy of pulmonary ventilation, and response to care were monitored throughout the procedure. The physical status of the patient was re-assessed after the procedure. After obtaining informed consent, the endoscope was passed under direct vision. Throughout the procedure, the patient's blood pressure, pulse, and oxygen saturations were monitored continuously. The Endoscope was introduced through the mouth, and advanced to the second part of duodenum. The upper GI endoscopy was accomplished without difficulty. The patient tolerated the procedure well. Scope In: 7:21:09 AM Scope Out: 7:27:10 AM Total Procedure Duration Time 0 hours 6 minutes 1 second Findings: There were esophageal mucosal changes suspicious for short-segment Staples's esophagus present in the lower third of the esophagus. Mucosa was biopsied with a cold forceps for histology. One specimen bottle was sent to pathology. Verification of patient identification for the specimen was done. Estimated blood loss was minimal. Mucosal changes including ringed esophagus and small-caliber esophagus were found in the middle third of the esophagus and in the lower third of the esophagus. A guidewire was placed and the scope was withdrawn. Dilation was performed with a Savary dilator with no resistance at 60 Fr. The dilation site was examined and showed moderate improvement in luminal narrowing. Estimated blood loss was minimal. Bilious fluid was found in the gastric body. No gross lesions were noted in the first portion of the duodenum. Impression: - Esophageal mucosal changes suspicious for short-segment Staples's esophagus. Biopsied. - Esophageal mucosal changes secondary to eosinophilic esophagitis. Dilated. - Bilious gastric fluid. - No gross lesions in the first portion of the duodenum. Recommendation: - Discharge patient to home. - Resume previous diet. - Continue present medications. - Await pathology results. Procedure Code(s): --- Professional --- 49732, Esophagogastroduodenoscopy, flexible, transoral; with insertion of guide wire followed by passage of dilator(s) through esophagus over guide wire 41229, 59,51, Esophagogastroduodenoscopy, flexible, transoral; with biopsy, single or multiple CPT copyright 2021 [employer]. All rights reserved. The codes documented in this report are preliminary and upon barrel bung remover and dumper review may be revised to meet current compliance requirements. Be Chapman DO 09/10/2024 7:33:35 AM This report has been signed electronically. Number of Addenda: 0 Note Initiated On: 09/10/2024 7:13 AM
--- NOTE | 2024-09-10 07:34 | OP.CCLET_ITS ---
09/10/2024 Nayely Villalobos Re : Upper GI endoscopy procedure for Jazlyn Hernandez Toi Villalobos This procedure was performed on Tuesday, September 10, 2024. My impressions and recommendations are as follows: Impressions : - Esophageal mucosal changes suspicious for short-segment Staples's esophagus. Biopsied. - Esophageal mucosal changes secondary to eosinophilic esophagitis. Dilated. - Bilious gastric fluid. - No gross lesions in the first portion of the duodenum. Recommendations : - Discharge patient to home. - Resume previous diet. - Continue present medications. - Await pathology results. My findings are described in the full procedure note, which is enclosed. If I can be of further assistance, please feel free to contact me at . Sincerely, Be Chapman, 09/10/2024 7:33:35 AM This report has been signed electronically.
--- NOTE | 2024-09-10 07:37 | PCM.POST.ANE ---
Anesthesia: Postop Eval I Current Vital Signs Temperature: 98.5 F Pulse Rate: 78 Blood Pressure: 97/70 Respiratory Rate: 16 Pulse Ox: 98 Oxygen Delivery Method: Room Air Assessment Airway patent: Yes Spontaneous unlabored respirations: Yes Mental status: Asleep nausea: No Vomiting: No Anesthesia Complication: No Fluid Hydration Crystalloid volume administer (ml): 30 Total IV fluid infused: 30 Progress Note Anesthesia document: Postop Eval 1 completed: Yes
--- NOTE | 2024-09-10 07:43 | PCM.POSTANE2 ---
Anesthesia Postop Eval I Sum Postop Eval Completion status Anesthesia document: Postop Eval 1 completed: Yes Anesthesia Postop Eval I Summary Anesthesia Postop Eval I Summary: Anesthesia Postop Eval I: Assessment Summary Airway patent Yes 09/10/24 07:38 [email or web address] Spontaneous unlabored Yes 09/10/24 07:38 [email or web address] respirations Mental status Asleep 09/10/24 07:38 [email or web address] nausea No 09/10/24 07:38 [email or web address] Vomiting No 09/10/24 07:38 [email or web address] Anesthesia Postop Eval I: Fluid Summary Crystalloid volume administer 30 09/10/24 07:38 [email or web address] (ml) Colloids volume administered ( ml) Blood Product volume administered (ml) Total IV fluid infused 30 09/10/24 07:38 [email or web address] Anesthesia Postop Eval I: Summary Notes Anesthesia Complication No 09/10/24 07:38 [email or web address] Anesthesia Complication Comment: Post-operative progress note Anesthesia: Postop Eval II Evaluation Mental status: Awake Pain Level: 0 nausea: No Vomiting: No
== END 2024-09-10 08:20 | disposition home or self-care (01) ==
LOC: EN 05:12 → AC 05:14
PROVIDERS: Visit Provider Internal Medicine Gastroenterology
PROC: 0DJ08ZZ Inspection of Upper Intestinal Tract, Via Natural or Artificial Opening Endoscopic (ICD-10-PCS; CPT 43235; principal; 2024-09-10 06:55)
DX: K22.70 Barrett's esophagus without dysplasia (principal); J44.9 Chronic obstructive pulmonary disease, unspecified; K20.0 Eosinophilic esophagitis; E78.00 Pure hypercholesterolemia, unspecified; I10 Essential (primary) hypertension; Z79.82 Long term (current) use of aspirin; Z79.899 Other long term (current) drug therapy
CPT/HCPCS: 43248; 43239; 88305; 88312; 88341; 88342; A4216; C1769; J2405

== ENCOUNTER → 2024-11-05 | Outpatient (CLI) | payer MEDICARE, SELFPAY ==
--- NOTE | 2024-11-05 15:06 | ST.MBS ---
Modified Barium Swallow Patient Information Study Date: 11/05/24 Study Time: 13:00 Direct Billable Minutes: 93 Total Minutes procedure & reportin Diagnosis: Dysphagia R13.10; GERD K21.9 Referring Physician: Be Chapman Reason for Referral: Objectively assess swallow function, assess risk for aspiration, and determine recommendations for least restrictive diet textures and compensatory strategies to improve safety of swallow. Medical History: PMH: Staples esophagus, Dysphagia, Hiatal hernia, GERD, Asthma, Intertrigo, Macromastia, Shoulder pain. The patient was referred by GI for MBSS due to difficulty swallowing breads and meats. Pt feels her asthma makes her swallowing worse. She feels that when her asthma acts up, meats won't go down. She at times regurgitates foods, such as meats and breads. She has extensive GI hx and is planned for EGD next year per patient report. Current Diet Ordered: Regular / Thin Dentition: WNL and Natural Teeth Respiratory Status: Oxygenating on Room Air Penetration-Aspiration Scale Penetration-Aspiration Scale: OBJECTIVE ASSESSMENT OF SWALLOW FUNCTION (QUANTITATIVE ? PER TRIAL): PENETRATION / ASPIRATION SCALE (GARZA): 1 = does not enter airway 2 = enters airway/above vocal folds/ejected 3 = enters airway/above vocal folds/not ejected 4 = enters airway/contacts vocal folds/ejected 5 = enters airway/contacts vocal folds/not ejected 6 = enters airway/below vocal folds/ejected 7 = enters airway/below vocal folds/not ejected despite effort 8 = enters airway/below vocal folds/no effort VIDEOFLOROSCOPIC SCALE SCORE (GARZA): Grade I = aspiration of material that has penetrated into the laryngeal vestibule, intact cough reflex Grade II = aspiration < 10 % of the bolus, intact cough reflex Grade III = aspiration of < 10 % of the bolus, reduced cough reflex or aspiration of > 10 % of the bolus, intact cough reflex Grade IV = aspiration of > 10 % of the bolus, reduced cough reflex Penetration-Aspiration Scale Score Thin Liquid via teaspoon: Result: 1= does not enter airway Thin Liquid via teaspoon Trial 2: Result: 1= does not enter airway Thin Liquid via small single sip: cup: Result: 1= does not enter airway Thin Liquid via sequential sips: cup: Result: 2= enter airway/above vocal folds/ejected Pudding via teaspoon: Result: 1= does not enter airway Comment: Esophageal screen - Retention in lower esophagus. Thin liquid wash fully cleared retention. 1/2 Cookie: Result: 1= does not enter airway Comment: Esophageal screen - Complete clearance. Thin Liquid via single sip: straw: Result: 1= does not enter airway Oral Phase Labial Seal: No Labial Escape Tongue Control During Bolus Hold: Posterior escape of less than half of bolus Bolus Preparation/Mastication: Timely and efficient chewing and mashing Bolus Transport/Lingual Motion: Delayed initiation of tongue motion Oral Residue: Residue collection on oral structures (piecemeal deglutition of cookie) Pharyngeal Phase Initiation of Pharyngeal Swallow: Bolus head at posterior laryngeal surgace of epiglottis Soft Palate Elevation: Trace column of contrast/air between soft palate and pharyngeal wall Laryngeal Elevation: Comp. Superior move thyroid cart w/comp. apprx arytenoid cart-epig pet Anterior Hyoid Excursion: Partial anterior movement Epiglottic Movement: Complete inversion Laryngeal Vestibule Closure at Height of Swallow: Incomplete; narrow column of air/contrast in laryngeal vestibule Pharyngeal Stripping Wave: Present - complete Pharyngoesophageal Segment Opening: Complete distension and complete duration; no obstruction of flow Tongue Base Retraction: Narrow column of contrast between tongue base & post. pharyngeal wall Pharyngeal Residue: Trace residue within or on pharyngeal structures Esophageal Phase Esophageal Clearance: Esophageal retention Diagnosis/Impression Diagnosis: Oropharyngeal swallow function grossly WNL Impression: The oropharyngeal swallow is grossly WNL. Min loss to the posterior surface of the epiglottis prior to swallow onset. Piecemeal deglutition of cookie. Trace laryngeal penetration of thin liquids via sequential sips; however, overall good airway closure as the laryngeal penetration fully ejected. No aspiration observed during the study. The esophageal phase is primarily marked by... -CP bar at the level of C4, which did not appear to impact clearance through the UES. -Esophageal retention of pudding in the lower esophagus, which fully cleared through the LES w/ liquid wash. Recommendations Diet: Regular Textures and Thin Liquids Compensatory Strategies: Small Bites, Small Sips, Slow Rate, Alternate bites/solids and sips/liquids, Sitting upright and Remain sitting upright for 30 minutes after PO intake Recommend Repeat Modified Barium Swallow: No Need for Skilled Speech Therapy Services: No Recommended Referrals: GI Consult (Continue to follow w/ Dr. Chapman) Education Completed: 1. Described result of evaluation. Status Active ST Patient: Active Contact Information [facility] Speech Therapy:: Glory Lloyd M.A. CCC-ACADEMIC ADVISING DIRECTOR? Speech-Language Pathologist?? [facility] [address] [place] [address]? [email or web address]?? [phone]
== END | disposition home or self-care (01) ==
PROVIDERS: Referring Provider Internal Medicine Gastroenterology; Visit Provider Internal Medicine Gastroenterology
DX: R13.10 Dysphagia, unspecified (principal)
CPT/HCPCS: 74230; 92611

== ENCOUNTER 2025-01-03 05:31 | Day surgery (SDC) | payer MEDICARE, SELFPAY ==
--- NOTE | 2025-01-01 14:27 | PAT.ANE_ITS ---
Pre-Assessment Diagnosis/Proposed Procedure Planned Operative Procedure(s): EGD Anesthesia History Anesthesia History - stroke coordinator: Anesthesia History - stroke coordinator Hx Hospitalization No 01/01/25 10:41 Any Problems With Anesthesia No 01/01/25 10:41 Cholinesterase deficiency No 01/01/25 10:41 You/Your Family Experience No 01/01/25 10:41 fever (hyperthermia) with Relationship Recent Exposure to Contagious No 09/10/24 06:13 Disease Does patient have nerve Yes: WILL BRING REMOTE 01/01/25 10:41 stimulator Patient instructed to have device shut off --Does patient have Pacemaker or ICD? When Was Last Pacemaker Check QUESTION #4 FULL TEXT: You/Your Family Experience fever (hyperthermia) with Anesthesia Last Oral Intake Last Oral intake: Last Oral Intake NPO since Meds taken in AM with sips of water? 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 - stroke coordinator: PONV - stroke coordinator Female Yes 01/01/25 10:41 HX of Motion Sickness No 01/01/25 10:41 HX of N/V After Surgery No 01/01/25 10:41 Non-Smoker Yes 01/01/25 10:41 Duration of Surgery greater No 01/01/25 10:41 than 60 minutes Number of Risk Factors 2 01/01/25 10:41 PONV Score Moderate Risk 01/01/25 10:41 Height & Weight Height & Weight: Anesthesia: Height & Weight Height 5 ft 2 in 09/10/24 06:13 Respiratory Assessment Respiratory Assessment - stroke coordinator: Respiratory Tract Infection Hx - stroke coordinator Hx Respiratory Tract Infection No 01/01/25 10:41 STOP Sleep Apnea STOP Sleep Apnea - stroke coordinator: STOP Sleep Apnea - stroke coordinator Hx Hypertension Yes: CONTROLLED WITH MEDS 01/01/25 10:41 Hx Sleep Apnea No 01/01/25 10:41 CPAP No 01/01/25 10:41 BIPAP No 01/01/25 10:41 Do you snore loudly (louder No 01/01/25 10:41 than talking or can be heard Do you often feel tired/ No 01/01/25 10:41 fatigued/ sleepy during daytime? Has anyone observed you stop No 01/01/25 10:41 breathing during sleep? STOP Results Negative 01/01/25 10:41 QUESTION #5 FULL TEXT : Do you snore loudly (louder than talking or can be heard through closed doors)? 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 Specify any problems Hx of Preganancy in last 3 No 01/01/25 10:41 Months Nurse Filling Out Transfusion DSCHRIBER 01/01/25 10:41 & Questions: Date: 01/01/25 01/01/25 10:41 Time: 10:42 01/01/25 10:41 Patient unable to answer at this time (ie. confused, unrespo /Reproduction History /Reproductive History - stroke coordinator: /Reproductive Hx- stroke coordinator Hx Now No 01/01/25 10:41 Gestational Age (in weeks): EDC: Hx Hx Para Hx Section SAB No 01/01/25 10:41 PFSH Medical History (Updated 01/01/25 @ 10:45 by Eryn Rodríguez) Back pain Depression Migraine headache Difficulty swallowing Wears hearing aid Shortness of breath on exertion Hypertension Wears glasses High cholesterol Non-smoker History of stress test Cardiology follow-up encounter Status post placement of bone anchored hearing aid (BAHA) Unspecified open wound of right cheek and temporomandibular area, sequela Actinic keratosis Intertrigo Shoulder pain Chronic thoracic back pain Chronic neck pain Macromastia COPD (chronic obstructive pulmonary disease) Home Medications ?Medication ?Instructions ?Recorded ?Last Taken ?Type albuterol sulfate 90 mcg/actuation 2 puff inhalation Q 6H PRN PRN 01/01/15 09/09/24 History aerosol inhaler Wheezing metoprolol succinate 25 mg 25 mg PO DAILY htn 07/24/20 09/10/24 History tablet,extended release 24 hr aspirin 81 mg chewable tablet 81 mg PO DAILY 08/05/21 12/31/24 History budesonide-formoterol HFA 80 2 puff inhalation BID Unknown History mcg-4.5 mcg/actuation aerosol inhaler (Symbicort) rimegepant 75 mg disintegrating 75 mg PO DAILY PRN alexandro flo 01/01/25 Unknown History tablet (Nurtec ODT) rosuvastatin 40 mg tablet 40 mg PO QHS 01/01/25 Unknow n History Allergy/AdvReac Type Severity Reaction Status Date / Time bee venom protein (honey bee) Allergy Intermediate Edema Verified 01/01/25 10:38 mushroom Allergy Intermediate Edema Verified 01/01/25 10:38 poison torin extract Allergy Rash Verified 01/01/25 10:38 poison oak extract Allergy Rash Verified 01/01/25 10:38 cat dander AdvReac Intermediate Itching Verified 01/01/25 10:38 and sneezing Family History Other Asthma Family history of skin cancer Surgical History (Updated 01/01/25 @ 10:45 by Eryn Rodríguez) S/P placement of nerve stimulator History of left knee surgery History of esophagogastroduodenoscopy (EGD) History of coronary artery stent placement History of cardiac catheterization Hx of nasal septoplasty Hx of tonsillectomy History of bunionectomy Hx of plastic surgery Hx of hysterectomy S/P bilateral breast reduction History of excision of lesion Social History Smoking Status: Never smoker alcohol intake: never substance use type: does not use additional social history: DOES NOT USE ASPIRIN DOES NOT USE IBUPROFEN Audit: Pertinent Findings Pertinent Findings EKG Perinent findings: January 02 2024. Sinus rhythm 64 bpm. Stress test pertinent findings: April 09, 2020. Negative stress test. Recommendation Anesthesia Recommendation Anesthesia recommendation: OPTIMIZED for anesthesia
[2025-01-03] VITALS (9 sets, daily range): BP systolic 80–121; BP diastolic 58–80; PULSE 59–70; RESP 12–20; TEMP 36.2–36.5; O2SAT 94–98; BMI 29.2
--- NOTE | 2025-01-03 07:37 | PCM.PRE.AN2 ---
ASA Classification* ASA Classification ASA Classification: 3 Assessment & Plan Anesthesia* Anesthesia Assessment Anesthesia Assessment: Discussed sedation and/or anesthesia options, risks, benefits, and alternatives with patient/parents/legal guardian/POA. Questions invited. The patient/parents/legal guardian/POA seems to understand and agrees to proceed with anesthesia plan. Reviewed the physical assessment, medical history, allergy history and patient home medications list prior to surgery/procedure/anesthetic and documented any changes. Performed airway and anesthesia risk assessments. Anesthesia Type Anesthesia Type: MAC History Source History Obtained from:: Patient and Chart Anesthesia Focused Assessment* Temperature: 97.2 F Pulse Rate: 60 Blood Pressure: 121/80 Respiratory Rate: 16 Pulse Ox: 98 Oxygen Delivery Method: Room Air Airway Assessment Mouth opens: >3 cm Mallampati Score: II Teeth Condition: Missing (poor dentition) Neck Range of motion (ROM): Limited ROM Comment: mildly limited ROM Focused Labs Anesthesia Preop lab: CBC WBC 7.0 K/mm3 (4.4-11.0) 07/26/23 08:10 07/26/23 RBC 4.61 M/mm3 (4.2-5.4) 07/26/23 08:10 07/26/23 Hgb 13.1 g/dL (12.0-15.0) 07/26/23 08:10 07/26/23 Hct 41.4 % (37-47) 07/26/23 08:10 07/26/23 Plt Count 318 K/mm3 (150-450) 07/26/23 08:10 07/26/23 CHEMISTRY Potassium 3.4 mmol/L (3.5-5.1) L 07/26/23 08:10 07/26/23 Sodium 141 mmol/L (136-145) 07/26/23 08:10 07/26/23 BUN 6 mg/dL (7-18) L 07/26/23 08:10 07/26/23 Creatinine 0.90 mg/dL (0.55-1.02) 07/26/23 08:10 07/26/23 Glucose 112 mg/dL (74-106) H 07/26/23 08:10 07/26/23 POC Glucose 108 mg/dL (70-110) 11/20/19 06:02 11/20/19 COAG Pre-Assessment Diagnosis/Proposed Procedure Planned Operative Procedure(s): EGD Anesthesia History 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 When Was Last Pacemaker Check QUESTION #4 FULL TEXT: You/Your Family Experience fever (hyperthermia) with Anesthesia Last Oral Intake Last Oral intake: Last Oral Intake NPO since 15:00 01/03/25 07:01 Meds taken in AM with sips of water? 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 - medical delivery driver: PONV - medical delivery driver Female Yes 01/01/25 10:41 HX of Motion Sickness No 01/01/25 10:41 HX of N/V After Surgery No 01/01/25 10:41 Non-Smoker Yes 01/01/25 10:41 Duration of Surgery greater No 01/01/25 10:41 than 60 minutes Number of Risk Factors 2 01/01/25 10:41 PONV Score Moderate Risk 01/01/25 10:41 Height & Weight Height & Weight: Anesthesia: Height & Weight Height 5 ft 2 in 01/03/25 07:01 Weight: 72.575 kg 01/03/25 07:01 Body Mass Index (BMI) 29.2 01/03/25 07:01 Respiratory Assessment Respiratory Assessment - medical delivery driver: Respiratory Tract Infection Hx - medical delivery driver Hx Respiratory Tract Infection No 01/01/25 10:41 STOP Sleep Apnea STOP Sleep Apnea - medical delivery driver: STOP Sleep Apnea - medical delivery driver Hx Hypertension Yes: CONTROLLED WITH MEDS 01/01/25 10:41 Hx Sleep Apnea No 01/01/25 10:41 CPAP No 01/01/25 10:41 BIPAP No 01/01/25 10:41 Do you snore loudly (louder No 01/01/25 10:41 than talking or can be heard Do you often feel tired/ No 01/01/25 10:41 fatigued/ sleepy during daytime? Has anyone observed you stop No 01/01/25 10:41 breathing during sleep? STOP Results Negative 01/01/25 10:41 QUESTION #5 FULL TEXT : Do you snore loudly (louder than talking or can be heard through closed doors)? 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 Specify any problems Hx of Preganancy in last 3 No 01/01/25 10:41 Months Nurse Filling Out Transfusion DSCHRIBER 01/01/25 10:41 & Questions: Date: 01/01/25 01/01/25 10:41 Time: 10:42 01/01/25 10:41 Patient unable to answer at this time (ie. confused, unrespo /Reproduction History /Reproductive History - medical delivery driver: /Reproductive Hx- medical delivery driver Hx Now No 01/01/25 10:41 Gestational Age (in weeks): EDC: Hx Hx Para Hx Section SAB No 01/01/25 10:41 PFSH Medical History (Updated 01/01/25 @ 10:45 by Eryn Rodríguez) Back pain Depression Migraine headache Difficulty swallowing Wears hearing aid Shortness of breath on exertion Hypertension Wears glasses High cholesterol Non-smoker History of stress test Cardiology follow-up encounter Status post placement of bone anchored hearing aid (BAHA) Unspecified open wound of right cheek and temporomandibular area, sequela Actinic keratosis Intertrigo Shoulder pain Chronic thoracic back pain Chronic neck pain Macromastia COPD (chronic obstructive pulmonary disease) Home Medications ?Medication ?Instructions ?Recorded ?Last Taken ?Type albuterol sulfate 90 mcg/actuation 2 puff inhalation Q6H PRN PRN 01/01/15 01/02/25 History aerosol inhaler Wheezing metoprolol succinate 25 mg 25 mg PO DAILY htn 07/24/20 01/03/25 04:00 History tablet,extended release 24 hr aspirin 81 mg chewable tablet 81 mg PO DAILY 08/05/21 12/31/24 History budesonide-formoterol HFA 80 2 puff inhalation BID 01/01/25 01/02/25 History mcg-4.5 mcg/actuation aerosol inhaler (Symbicort) rimegepant 75 mg disintegrating 75 mg PO DAILY PRN migraine 01/01/25 Unknown History tablet (Nurtec ODT) rosuvastatin 40 mg tablet 40 mg PO QHS 01/01/25 01/02/25 History Allergy/AdvReac Type Severity Reaction Status Date / Time bee venom protein (honey bee) Allergy Intermediate Edema Verified 01/03/25 06:55 mushroom Allergy Intermediate Edema Verified 01/03/25 06:55 poison torin extract Allergy Rash Verified 01/03/25 06:55 poison oak extract Allergy Rash Verified 01/03/25 06:55 cat dander AdvReac Intermediate Itching Verified 01/03/25 06:55 and sneezing Family History Other Asthma Family history of skin cancer Surgical History (Updated 01/01/25 @ 10:45 by Eryn Rodríguez) S/P placement of nerve stimulator History of left knee surgery History of esophagogastroduodenoscopy (EGD) History of coronary artery stent placement History of cardiac catheterization Hx of nasal septoplasty Hx of tonsillectomy History of bunionectomy Hx of plastic surgery Hx of hysterectomy S/P bilateral breast reduction History of excision of lesion Social History Smoking Status: Never smoker alcohol intake: never substance use type: does not use additional social history: DOES NOT USE ASPIRIN DOES NOT USE IBUPROFEN Review of Systems (Anesthesia) ROS Narrative System reviewed and no additional complaints, except as documented.
--- NOTE | 2025-01-03 07:51 | PCM.HP.STD ---
HPI - General General Date of Admission: 01/03/25 Date of Service: 01/03/25 Chief Complaint: dysphagia HPI Narrative LUCIANO LOCO, is a 59 F who presents for endoscopic therapy of dysphagia. She has a pre-existing diagnosis of inappropriate esophageal motility with achalasia. *BGI established 08.03.21 with history of dysphagia requiring esophageal dilation; most recently performed [facility] 5 years prior. Currently feels that food is sticking mid-esophagus requiring multiple attempts to clear food. EGD 08.10.21 LA Grade B esophagitis; moderate, benign, intrinsic stenosis 39cm, Sandoval dilator 38F; gastritis. No metaplasia. H.Pylori neg. Start PPI taper OV 09.04.21 doing well with use of PPI. OV 09.23.22 cardiology stopped PPI; declines H2 terry. EGD 11.09.22 tortuous esophagus; irregular Zline 37cm; small hiatal hernia; moderate, benign, intrinsic stenosis 39cm, Savary dilator 60F. No metaplasia EGD 06.06.23 LA Grade A esophagitis; moderate Schatzki ring upper esophagus, Savary 54F; moderate Schatzki ring lower esophagus, Savary 54F; small hiatal hernia. OV 8 LUCIANO LOCO, is a 57 F who presents to the office today because she continues to have food sticking and will pass with liquids; reports this is related to her asthma that she feels acts up a lot when she eats, she is not seeing a generator man currently and is open to doing this. She is attending carpal tunnel surgery after this. OV 10.10.24 Has been having a hard time swallowing. Has not been taking omeprazole because it causes diarrhea. Swallowing Function w/Video Today R13.19 - Other dysphagia [facility] Medical History Back pain Depression Migraine headache Difficulty swallowing Wears hearing aid Shortness of breath on exertion Hypertension Wears glasses High cholesterol Non-smoker History of stress test Cardiology follow-up encounter Status post placement of bone anchored hearing aid (BAHA) Unspecified open wound of right cheek and temporomandibular area, sequela Actinic keratosis Intertrigo Shoulder pain Chronic thoracic back pain Chronic neck pain Macromastia COPD (chronic obstructive pulmonary disease) Home Medications ?Medication ?Instructions ?Recorded ?Last Taken ?Type albuterol sulfate 90 mcg/actuation 2 puff inhalation Q6H PRN PRN 01/01/15 01/02/25 History aerosol inhaler Wheezing metoprolol succinate 25 mg 25 mg PO DAILY htn 07/24/20 01/03/25 04:00 History tablet,extended release 24 hr aspirin 81 mg chewable tablet 81 mg PO DAILY 08/05/21 12/31/24 History budesonide-formoterol HFA 80 2 puff inhalation BID 01/01/25 01/02/25 History mcg-4.5 mcg/actuation aerosol inhaler (Symbicort) rimegepant 75 mg disintegrating 75 mg PO DAILY PRN migraine 01/01/25 Unknown History tablet (Nurtec ODT) rosuvastatin 40 mg tablet 40 mg PO QHS 01/01/25 01/02/25 History Allergy/AdvReac Type Severity Reaction Status Date / Time bee venom protein (honey bee) Allergy Intermediate Edema Verified 01/03/25 06:55 mushroom Allergy Intermediate Edema Verified 01/03/25 06:55 poison torin extract Allergy Rash Verified 01/03/25 06:55 poison oak extract Allergy Rash Verified 01/03/25 06:55 cat dander AdvReac Intermediate Itching Verified 01/03/25 06:55 and sneezing Family History Other Asthma Family history of skin cancer Surgical History S/P placement of nerve stimulator History of left knee surgery History of esophagogastroduodenoscopy (EGD) History of coronary artery stent placement History of cardiac catheterization Hx of nasal septoplasty Hx of tonsillectomy History of bunionectomy Hx of plastic surgery Hx of hysterectomy S/P bilateral breast reduction History of excision of lesion Social History Smoking Status: Never smoker alcohol intake: never substance use type: does not use additional social history: DOES NOT USE ASPIRIN DOES NOT USE IBUPROFEN ROS Constitutional Constitutional: Denies fatigue, fever(s), poor appetite, weight gain or weight loss Gastrointestinal Gastrointestinal: Denies belching, bloating, change in bowel habits, change in stool character, chewing difficulty, coffee ground emesis, constipation, cramping, diarrhea, dyspepsia, dysphagia, early satiety, excessive flatus, fecal incontinence, heartburn, hematemesis, hematochezia, hemorrhoids, loose stools, melena, nausea, odynophagia, rectal bleeding, tenesmus, vomiting or weight changes Vital Signs Vital Signs Vital Signs: 01/03/25 06:57 01/03/25 07:01 01/03/25 07:41 Temperature 97.2 F L 97.2 F L Temperature Source Temporal Pulse Rate 60 60 Respiratory Rate 16 16 Respiratory Pattern Normal Blood Pressure 121/80 H 121/80 H Blood Pressure Mean 93 Blood Pressure Source Monitor Blood Pressure Position Semi-Fowlers Blood Pressure Location Right Arm Pulse Ox 98 98 Oxygen Delivery Method Room Air Room Air Weight Weight: 160 lb Body Mass Index (BMI) 29.2 Physical Exam Const alert, oriented x3, no apparent distress and healthy appearing General Appearance: cooperative GI normal to inspection, nondistended, normoactive bowel sounds, soft to palpation, non-tender and non-distended Percussion: normal to percussion Rectal Exam: deferred Assessment & Plan Assessment/Plan (1) Dysphagia: QUALIFIERS: Dysphagia type: esophageal phase Qualified Code(s): R13.19 - Other dysphagia (2) Staples esophagus: PLAN: Plan Assessment and Plan Assessment and Plan (1) Dysphagia: Status: Acute Qualifiers: Dysphagia type: esophageal phase Qualified Code(s): R13.19 - Other dysphagia Plan: We will get a swallowing study as she is complaining of a globus sensation and really high esophageal and oropharyngeal dysphagia. (2) GERD (gastroesophageal reflux disease): Status: Acute Plan: She is doing very well after undergoing EGD. She is not having any breakthrough reflux at this time. We will continue her on omeprazole 40 mg twice daily for the next 8 weeks and then see if we can titrate down to 40 mg once a day and possibly famotidine at night. (3) Hiatal hernia: Status: Acute (4) Staples esophagus: Status: Acute Plan: Continue PPI as ordered. Repeat upper endoscopy in a year . Orders: Orders
[2025-01-03] MEDS: Botulinum Toxin A 100 Units Vial IJ (08:13)
[2025-01-03] MEDS: 0.9% Normal Saline (Pres. free 10 ML Vial (08:13)
[2025-01-03] MEDS: 0.9% Saline Lock 10 ML Syringe IV (08:14)
--- NOTE | 2025-01-03 08:26 | PCM.POST.ANE ---
Anesthesia: Postop Eval I Current Vital Signs Temperature: 97.7 F Pulse Rate: 70 Blood Pressure: 86/62 Respiratory Rate: 16 Pulse Ox: 96 Oxygen Delivery Method: Room Air Assessment Airway patent: Yes Spontaneous unlabored respirations: Yes Mental status: Asleep nausea: No Vomiting: No Anesthesia Complication: No Fluid Hydration Crystalloid volume administer (ml): 30 Total IV fluid infused: 30 Progress Note Anesthesia document: Postop Eval 1 completed: Yes
--- NOTE | 2025-01-03 08:27 | OP.CCLET_ITS ---
01/03/2025 Nayely Villalobos Re : Upper GI endoscopy procedure for Jazlyn Hernandez Dear Wilfredo This procedure was performed on December. My impressions and recommendations are as follows: Impressions : - Abnormal esophageal motility, established achalasia. Injected with botulinum toxin. - Hiatal hernia. - No gross lesions in the first portion of the duodenum. - No specimens collected. Recommendations : - Discharge patient to home. - Resume previous diet. - Continue present medications. My findings are described in the full procedure note, which is enclosed. If I can be of further assistance, please feel free to contact me at . Sincerely, Be Chapman, 01/03/2025 8:26:53 AM This report has been signed electronically.
--- NOTE | 2025-01-03 08:27 | OP.EGD_ITS ---
Patient Name: Jazlyn Hernandez Procedure Date: 01/03/2025 7:52 AM Date of : 1965 Age: 59 Procedure: Upper GI endoscopy Indications: Dysphagia Providers: Be Chapman DO Referring MD: Nayely Villalobos Medicines: Monitored Anesthesia Care Patient Profile: This is a 59 year old female. Refer to note in patient chart for documentation of history and physical. Patient has symptoms of dysphagia with both liquids and solids. Complications: No immediate complications. Procedure: Pre-Anesthesia Assessment: - Prior to the procedure, a History and Physical was performed, and patient medications and allergies were reviewed. The patient is competent. The risks and benefits of the procedure and the sedation options and risks were discussed with the patient. All questions were answered and informed consent was obtained. Patient identification and proposed procedure were verified by the physician in the pre-procedure area. Mental Status Examination: alert and oriented. Airway Examination: normal oropharyngeal airway and neck mobility. Respiratory Examination: clear to auscultation. CV Examination: normal. Prophylactic Antibiotics: The patient does not require prophylactic antibiotics. Prior Anticoagulants: The patient has taken no anticoagulant or antiplatelet agents. ASA Grade Assessment: II - A patient with mild systemic disease. After reviewing the risks and benefits, the patient was deemed in satisfactory condition to undergo the procedure. The anesthesia plan was to use monitored anesthesia care (MAC). Immediately prior to administration of medications, the patient was re-assessed for adequacy to receive sedatives. The heart rate, respiratory rate, oxygen saturations, blood pressure, adequacy of pulmonary ventilation, and response to care were monitored throughout the procedure. The physical status of the patient was re-assessed after the procedure. After obtaining informed consent, the endoscope was passed under direct vision. Throughout the procedure, the patient's blood pressure, pulse, and oxygen saturations were monitored continuously. The gastroscope was introduced through the mouth, and advanced to the second part of duodenum. The upper GI endoscopy was accomplished without difficulty. The patient tolerated the procedure well. Scope In: 8:10:06 AM Scope Out: 8:16:54 AM Total Procedure Duration Time 0 hours 6 minutes 48 seconds Findings: Abnormal motility was noted in the esophagus. The cricopharyngeus was normal. There is a decrease in motility of the esophageal body. The distal esophagus/lower esophageal sphincter is spastic, but gives up passage to the endoscope. Secondary peristaltic waves are noted. Area was successfully injected with 100 units botulinum toxin. A hiatal hernia was present. No other significant abnormalities were identified in a careful examination of the stomach. No gross lesions were noted in the first portion of the duodenum. Impression: - Abnormal esophageal motility, established achalasia. Injected with botulinum toxin. - Hiatal hernia. - No gross lesions in the first portion of the duodenum. - No specimens collected. Recommendation: - Discharge patient to home. - Resume previous diet. - Continue present medications. Procedure Code(s): --- Professional --- 15199, Esophagogastroduodenoscopy, flexible, transoral; with directed submucosal injection(s), any substance CPT copyright 2021 [employer] [place] [employer]. All rights reserved. The codes documented in this report are preliminary and upon credit risk management director review may be revised to meet current compliance requirements. Be Chapman DO 01/03/2025 8:26:53 AM This report has been signed electronically. Number of Addenda: 0 Note Initiated On: 01/03/2025 7:52 AM
--- NOTE | 2025-01-03 08:38 | PCM.POSTANE2 ---
Anesthesia Postop Eval I Sum Postop Eval Completion status Anesthesia document: Postop Eval 1 completed: Yes Anesthesia Postop Eval I Summary Anesthesia Postop Eval I Summary: Anesthesia Postop Eval I: Assessment Summary Airway patent Yes 01/03/25 08:28 [email or web address] Spontaneous unlabored Yes 01/03/25 08:28 [email or web address] respirations Mental status Asleep 01/03/25 08:28 [email or web address] nausea No 01/03/25 08:28 [email or web address] Vomiting No 01/03/25 08:28 [email or web address] Anesthesia Postop Eval I: Fluid Summary Crystalloid volume administer 30 01/03/25 08:28 [email or web address] (ml) Colloids volume administered ( ml) Blood Product volume administered (ml) Total IV fluid infused 30 01/03/25 08:28 [email or web address] Anesthesia Postop Eval I: Summary Notes Anesthesia Complication No 01/03/25 08:28 [email or web address] Anesthesia Complication Comment: Post-operative progress note Anesthesia: Postop Eval II Evaluation Mental status: Awake and Calm Pain Level: 0 nausea: No Vomiting: No Complications Anesthesia Complication: No
== END 2025-01-03 09:06 | disposition home or self-care (01) ==
LOC: EN 05:31 → AC 05:33
PROVIDERS: Visit Provider Internal Medicine Gastroenterology
PROC: 0DJ08ZZ Inspection of Upper Intestinal Tract, Via Natural or Artificial Opening Endoscopic (ICD-10-PCS; CPT 43235; principal; 2025-01-03 07:25)
DX: K22.0 Achalasia of cardia (principal); J44.9 Chronic obstructive pulmonary disease, unspecified; R13.19 Other dysphagia; K44.9 Diaphragmatic hernia without obstruction or gangrene; K22.70 Barrett's esophagus without dysplasia; I10 Essential (primary) hypertension; E78.00 Pure hypercholesterolemia, unspecified; Z79.82 Long term (current) use of aspirin; Z79.51 Long term (current) use of inhaled steroids
CPT/HCPCS: 43236; A4216; J0585; J2405

== ENCOUNTER 2025-11-05 10:45 | Day surgery (SDC) | payer MEDICARE, SELFPAY ==
--- NOTE | 2025-11-01 12:51 | PAT.ANESEVAL ---
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 When Was Last Pacemaker Check QUESTION #4 FULL TEXT: You/Your Family Experience fever (hyperthermia) with Anesthesia Last Oral Intake Last Oral intake: Last Oral Intake NPO since Meds taken in AM with sips of water? 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 Female No 11/01/25 10:13 HX of Motion Sickness No 11/01/25 10:13 HX of N/V After Surgery No 11/01/25 10:13 Non-Smoker Yes 11/01/25 10:13 Duration of Surgery greater No 11/01/25 10:13 than 60 minutes Number of Risk Factors 1 11/01/25 10:13 PONV Score Low Risk 11/01/25 10:13 Height & Weight Height & Weight: Anesthesia: Height & Weight Height 5 ft 2 in 01/03/25 07:01 Respiratory Assessment Respiratory Assessment - secondary teacher: Respiratory Tract Infection Hx - secondary teacher Hx Respiratory Tract Infection No 11/01/25 10:13 STOP Sleep Apnea STOP Sleep Apnea - secondary teacher: STOP Sleep Apnea - secondary teacher Hx Hypertension Yes: CONTROLLED WITH MEDS 11/01/25 10:13 Hx Sleep Apnea Yes 11/01/25 10:13 CPAP No 11/01/25 10:13 BIPAP No 11/01/25 10:13 Do you snore loudly (louder than talking or can be heard Do you often feel tired/ fatigued/ sleepy during daytime? Has anyone observed you stop breathing during sleep? STOP Results Positive 11/01/25 10:13 QUESTION #5 FULL TEXT : Do you snore loudly (louder than talking or can be heard through closed doors)? 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 Specify any problems Hx of Preganancy in last 3 No 11/01/25 10:13 Months Nurse Filling Out Transfusion MGRIFFITH 11/01/25 10:13 & Questions: Date: 11/01/25 11/01/25 10:13 Time: 10:18 11/01/25 10:13 Patient unable to answer at this time (ie. confused, unrespo /Reproduction History /Reproductive History - secondary teacher: /Reproductive Hx- secondary teacher Hx Now No 11/01/25 10:13 Gestational Age (in weeks): EDC: Hx Hx Para Hx Section SAB No 11/01/25 10:13 Does the father of the baby or his family experience fever w Father of the baby Malignant Hypertension history comment [facility] Medical History (Updated 11/01/25 @ 10:25 by Jennifer Hernandez) Arthritis Gastric reflux Back pain Depression Migraine headache Difficulty swallowing Wears hearing aid Shortness of breath on exertion Hypertension Wears glasses High cholesterol Non-smoker History of stress test Cardiology follow-up encounter Status post placement of bone anchored hearing aid (BAHA) Unspecified open wound of right cheek and temporomandibular area, sequela Actinic keratosis Intertrigo Shoulder pain Chronic thoracic back pain Chronic neck pain Macromastia COPD (chronic obstructive pulmonary disease) Home Medications ?Medication ?Instructions ?Recorded ?Last Taken ?Type albuterol sulfate 90 mcg/actuation 2 puff inhalation Q6H PRN PRN 01/01/15 01/02/25 History aerosol inhaler Wheezing metoprolol succinate 25 mg 25 mg PO DAILY HTN 07/24/20 01/03/25 04:00 History tablet,extended release 24 hr aspirin 81 mg chewable tablet 81 mg PO DAILY 08/05/21 12/31/24 History budesonide-formoterol HFA 80 2 puff inhalation BID 01/01/25 01/02/25 History mcg-4.5 mcg/actuation aerosol inhaler (Symbicort) rimegepant 75 mg disintegrating 75 mg PO DAILY PRN migraine 01/01/25 Unknown History tablet (Nurtec ODT) rosuvastatin 40 mg tablet 40 mg PO QHS 01/01/25 01/02/25 History omeprazole 40 mg capsule,delayed 40 mg PO BID GERD #60 caps 02/08/25 Unknown Rx release Allergy/AdvReac Type Severity Reaction Status Date / Time bee venom protein (honey bee) Allergy Intermediate Edema Verified 11/01/25 10:09 mushroom Allergy Intermediate Edema Verified 11/01/25 10:09 poison torin extract Allergy Rash Verified 11/01/25 10:09 poison oak extract Allergy Rash Verified 11/01/25 10:09 cat dander AdvReac Intermediate Itching Verified 11/01/25 10:09 and sneezing Family History Other Asthma Family history of skin cancer Surgical History S/P placement of nerve stimulator History of left knee surgery History of esophagogastroduodenoscopy (EGD) History of coronary artery stent placement History of cardiac catheterization Hx of nasal septoplasty Hx of tonsillectomy History of bunionectomy Hx of plastic surgery Hx of hysterectomy S/P bilateral breast reduction History of excision of lesion Social History Smoking Status: Never smoker alcohol intake: never substance use type: does not use additional social history: DOES NOT USE ASPIRIN DOES NOT USE IBUPROFEN Audit: Pertinent Findings Pertinent Findings EKG Perinent findings: 01/02/2024. Sinus rhythm. Stress test pertinent findings: 08/20/2025. No clear evidence of ischemia or infarction on nuclear testing.. EF is 65%. Consult pertinent findings: 08/07/2025. 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 1. Chest pain-atypical. However chest pain prior to stent placement was atypical as well. Check Lexiscan stress test. 2. Coronary artery disease in [place] arteries-atypical chest pain which could be anginal equivalent. Continue isosorbide, aspirin, rosuvastatin. 3. Hypertension?controlled. Continue metoprolol. Recommendation Anesthesia Recommendation Anesthesia recommendation: OPTIMIZED for anesthesia
[2025-11-05] VITALS (9 sets, daily range): BP systolic 107–132; BP diastolic 77–96; PULSE 51–77; RESP 12–18; TEMP 36.3–36.7; O2SAT 96–98; BMI 26.1
[2025-11-05] MEDS: Lactated Ringers 1,000 ML 15 ML IV (12:15)
--- NOTE | 2025-11-05 12:24 | PCM.PRE.AN2 ---
ASA Classification* ASA Classification ASA Classification: 3 Assessment & Plan Anesthesia* Anesthesia Assessment Anesthesia Assessment: Discussed sedation and/or anesthesia options, risks, benefits, and alternatives with patient/parents/legal guardian/POA. Questions invited. The patient/parents/legal guardian/POA seems to understand and agrees to proceed with anesthesia plan. Reviewed the physical assessment, medical history, allergy history and patient home medications list prior to surgery/procedure/anesthetic and documented any changes. Performed airway and anesthesia risk assessments. Anesthesia Type Anesthesia Type: MAC History Source History Obtained from:: Patient and Chart Anesthesia Focused Assessment* Temperature: 98.0 F Pulse Rate: 51 Blood Pressure: 125/93 Respiratory Rate: 16 Pulse Ox: 98 Oxygen Delivery Method: Room Air Airway Assessment Mouth opens: >3 cm Mallampati Score: III Teeth Condition: Missing (Patient has several missing teeth. The rest of the teeth are tight.) Neck Range of motion (ROM): Limited ROM Labs Anesthesia Preop lab: CBC WBC, (4.4-11.0) 7.0 K/mm3 07/26/23, 08:10 RBC, (4.2-5.4) 4.61 M/mm3 07/26/23, 08:10 Hgb, (12.0-15.0) 13.1 g/dL 07/26/23, 08:10 Hct, (37-47) 41.4 % 07/26/23, 08:10 Plt Count, (150-450) 318 K/mm3 07/26/23, 08:10 CHEMISTRY Potassium, (3.5-5.1) 3.4 mmol/L L 07/26/23, 08:10 Sodium, (136-145) 141 mmol/L 07/26/23, 08:10 BUN, (7-18) 6 mg/dL L 07/26/23, 08:10 Creatinine, (0.55-1.02) 0.90 mg/dL 07/26/23, 08:10 Glucose, (74-106) 112 mg/dL H 07/26/23, 08:10 POC Glucose, (70-110) 108 mg/dL 11/20/19, 06:02 COAG Pre-Assessment Diagnosis/Proposed Procedure Planned Operative Procedure(s): EGD Anesthesia History 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 When Was Last Pacemaker Check QUESTION #4 FULL TEXT: You/Your Family Experience fever (hyperthermia) with Anesthesia Last Oral Intake Last Oral intake: Last Oral Intake NPO since 08:00 11/05/25 12:00 Meds taken in AM with sips of Yes 11/05/25 12:00 water? 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 Female No 11/01/25 10:13 HX of Motion Sickness No 11/01/25 10:13 HX of N/V After Surgery No 11/01/25 10:13 Non-Smoker Yes 11/01/25 10:13 Duration of Surgery greater No 11/01/25 10:13 than 60 minutes Number of Risk Factors 1 11/01/25 10:13 PONV Score Low Risk 11/01/25 10:13 Height & Weight Height & Weight: Anesthesia: Height & Weight Height 5 ft 2 in 11/05/25 12:00 Weight: 64.7 kg 11/05/25 12:00 Body Mass Index (BMI) 26.1 11/05/25 12:00 Respiratory Assessment Respiratory Assessment - environmental laboratory technician: Respiratory Tract Infection Hx - environmental laboratory technician Hx Respiratory Tract Infection No 11/01/25 10:13 Any additional information?: Yes Hx Respiratory Tract Infection: Yes History of Anesthesia Respiratory Infection details: Patient has had recent exacerbation of asthma. STOP Sleep Apnea STOP Sleep Apnea - environmental laboratory technician: STOP Sleep Apnea - environmental laboratory technician Hx Hypertension Yes: CONTROLLED WITH MEDS 11/01/25 10:13 Hx Sleep Apnea Yes 11/01/25 10:13 CPAP No 11/01/25 10:13 BIPAP No 11/01/25 10:13 Do you snore loudly (louder than talking or can be heard Do you often feel tired/ fatigued/ sleepy during daytime? Has anyone observed you stop breathing during sleep? STOP Results Positive 11/01/25 10:13 QUESTION #5 FULL TEXT : Do you snore loudly (louder than talking or can be heard through closed doors)? 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 Specify any problems Hx of Preganancy in last 3 No 11/01/25 10:13 Months Nurse Filling Out Transfusion MGRIFFITH 11/01/25 10:13 & Questions: Date: 11/01/25 11/01/25 10:13 Time: 10:18 11/01/25 10:13 Patient unable to answer at this time (ie. 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: /Reproductive Hx- environmental laboratory technician Hx Now No 11/01/25 10:13 Gestational Age (in weeks): EDC: Hx Hx Para Hx Section SAB No 11/01/25 10:13 Does the father of the baby or his family experience fever w Father of the baby Malignant Hypertension history comment Active Medications Active Medications: Current Medications Generic Name Dose Route Start Last Admin Trade Name Freq PRN Reason Stop Dose Admin Lactated Ringer's 1,000 mls @ 15 mls/hr 11/05/25 11:30 IV .Q48H CLARISA PFSH Medical History Arthritis Gastric reflux Back pain Depression Migraine headache Difficulty swallowing Wears hearing aid Shortness of breath on exertion Hypertension Wears glasses High cholesterol Non-smoker History of stress test Cardiology follow-up encounter Status post placement of bone anchored hearing aid (BAHA) Unspecified open wound of right cheek and temporomandibular area, sequela Actinic keratosis Intertrigo Shoulder pain Chronic thoracic back pain Chronic neck pain Macromastia COPD (chronic obstructive pulmonary disease) Home Medications ?Medication ?Instructions ?Recorded ?Last Taken ?Type albuterol sulfate 90 mcg/actuation 2 puff inhalation Q6H PRN PRN 01/01/15 11/05/25 08:30 History aerosol inhaler Wheezing metoprolol succinate 25 mg 25 mg PO DAILY HTN 07/24/20 11/05/25 08:00 History tablet,extended release 24 hr aspirin 81 mg chewable tablet 81 mg PO DAILY 08/05/21 12/31/24 History budesonide-formoterol HFA 80 2 puff inhalation BID 01/01/25 11/05/25 08:00 History mcg-4.5 mcg/actuation aerosol inhaler (Symbicort) rimegepant 75 mg disintegrating 75 mg PO DAILY PRN migraine 01/01/25 Unknown History tablet (Nurtec ODT) rosuvastatin 40 mg tablet 40 mg PO QHS 01/01/25 01/02/25 History omeprazole 40 mg capsule,delayed 40 mg PO BID GERD #60 caps 02/08/25 Unknown Rx release Allergy/AdvReac Type Severity Reaction Status Date / Time bee venom protein (honey bee) Allergy Intermediate Edema Verified 11/05/25 11:58 mushroom Allergy Intermediate Edema Verified 11/05/25 11:58 poison torin extract Allergy Rash Verified 11/05/25 11:58 poison oak extract Allergy Rash Verified 11/05/25 11:58 cat dander AdvReac Intermediate Itching Verified 11/05/25 11:58 and sneezing Family History Other Asthma Family history of skin cancer Surgical History S/P placement of nerve stimulator History of left knee surgery History of esophagogastroduodenoscopy (EGD) History of coronary artery stent placement History of cardiac catheterization Hx of nasal septoplasty Hx of tonsillectomy History of bunionectomy Hx of plastic surgery Hx of hysterectomy S/P bilateral breast reduction History of excision of lesion Social History Smoking Status: Never smoker alcohol intake: never substance use type: does not use additional social history: DOES NOT USE ASPIRIN DOES NOT USE IBUPROFEN Review of Systems (Anesthesia) ROS Narrative System reviewed and no additional complaints, except as documented. Physical Exam Resp clear to auscultation bilaterally
--- NOTE | 2025-11-05 12:35 | PCM.HP.STD ---
HPI - General General Date of Admission: 11/05/25 Date of Service: 11/05/25 Chief Complaint: achalasia HPI Narrative LUCIANO LOCO, is a 59 F who presents for upper endoscopy *BGI established 08.03.21 with history of dysphagia requiring esophageal dilation; most recently performed [facility] 5 years prior. Currently feels that food is sticking mid-esophagus requiring multiple attempts to clear food. EGD 08.10.21 LA Grade B esophagitis; moderate, benign, intrinsic stenosis 39cm, Sandoval dilator 38F; gastritis. No metaplasia. H.Pylori neg. Start PPI taper OV 09.04.21 doing well with use of PPI. OV 09.23.22 cardiology stopped PPI; declines H2 terry. EGD 11.09.22 tortuous esophagus; irregular Zline 37cm; small hiatal hernia; moderate, benign, intrinsic stenosis 39cm, Savary dilator 60F. No metaplasia EGD 06.06.23 LA Grade A esophagitis; moderate Schatzki ring upper esophagus, Savary 54F; moderate Schatzki ring lower esophagus, Savary 54F; small hiatal hernia. OV 07.08. continues to have food sticking and will pass with liquids; reports this is related to her asthma that she feels acts up a lot when she eats, she is not seeing a molding utility worker currently and is open to doing this. She is attending carpal tunnel surgery after this. OV 10.10. Has been having a hard time swallowing. Has not been taking omeprazole because it causes diarrhea. EGD 01.03.25- Abnormal esophageal motility, established achalasia, Hiatal Hernia, Botox Injection OV 3.- Pt states she is doing well since scope. States her heartburn and swallowing have improved. Throat is a little sore when swallowing but is getting better. States she is still taking Omeprazole. OV 11.. pt reports that she is starting to have some difficulty swallowing again. Denies other GI symptoms of concern at this time. Continues with Omeprazole. [facility] Medical History Arthritis Gastric reflux Back pain Depression Migraine headache Difficulty swallowing Wears hearing aid Shortness of breath on exertion Hypertension Wears glasses High cholesterol Non-smoker History of stress test Cardiology follow-up encounter Status post placement of bone anchored hearing aid (BAHA) Unspecified open wound of right cheek and temporomandibular area, sequela Actinic keratosis Intertrigo Shoulder pain Chronic thoracic back pain Chronic neck pain Macromastia COPD (chronic obstructive pulmonary disease) Home Medications ?Medication ?Instructions ?Recorded ?Last Taken ?Type albuterol sulfate 90 mcg/actuation 2 puff inhalation Q6H PRN PRN 01/01/15 11/05/25 08:30 History aerosol inhaler Wheezing metoprolol succinate 25 mg 25 mg PO DAILY HTN 07/24/20 11/05/25 08:00 History tablet,extended release 24 hr aspirin 81 mg chewable tablet 81 mg PO DAILY 08/05/21 12/31/24 History budesonide-formoterol HFA 80 2 puff inhalation BID 01/01/25 11/05/25 08:00 History mcg-4.5 mcg/actuation aerosol inhaler (Symbicort) rimegepant 75 mg disintegrating 75 mg PO DAILY PRN migraine 01/01/25 Unknown History tablet (Nurtec ODT) rosuvastatin 40 mg tablet 40 mg PO QHS 01/01/25 01/02/25 History omeprazole 40 mg capsule,delayed 40 mg PO BID GERD #60 caps 02/08/25 Unknown Rx release Allergy/AdvReac Type Severity Reaction Status Date / Time bee venom protein (honey bee) Allergy Intermediate Edema Verified 11/05/25 11:58 mushroom Allergy Intermediate Edema Verified 11/05/25 11:58 poison torin extract Allergy Rash Verified 11/05/25 11:58 poison oak extract Allergy Rash Verified 11/05/25 11:58 cat dander AdvReac Intermediate Itching Verified 11/05/25 11:58 and sneezing Family History Other Asthma Family history of skin cancer Surgical History S/P placement of nerve stimulator History of left knee surgery History of esophagogastroduodenoscopy (EGD) History of coronary artery stent placement History of cardiac catheterization Hx of nasal septoplasty Hx of tonsillectomy History of bunionectomy Hx of plastic surgery Hx of hysterectomy S/P bilateral breast reduction History of excision of lesion Social History Smoking Status: Never smoker alcohol intake: never substance use type: does not use additional social history: DOES NOT USE ASPIRIN DOES NOT USE IBUPROFEN ROS Constitutional Constitutional: Denies fatigue, fever(s), poor appetite, weight gain or weight loss Gastrointestinal Gastrointestinal: Denies belching, bloating, change in bowel habits, change in stool character, chewing difficulty, coffee ground emesis, constipation, cramping, diarrhea, dyspepsia, dysphagia, early satiety, excessive flatus, fecal incontinence, heartburn, hematemesis, hematochezia, hemorrhoids, loose stools, melena, nausea, odynophagia, rectal bleeding, tenesmus, vomiting or weight changes Patient's Goals Of Care . What would you like to achieve or improve as a result of your hospital stay?: none Vital Signs Vital Signs Vital Signs: 11/05/25 12:00 11/05/25 12:00 11/05/25 12:00 Temperature 98.0 F Temperature Source Temporal Pulse Rate 51 L Respiratory Rate 16 Respiratory Pattern Normal Blood Pressure 125/93 H Blood Pressure Mean 103 Blood Pressure Source Monitor Blood Pressure Position Sitting Blood Pressure Location Right Arm Baseline BP 125/93 Pulse Ox 98 Oxygen Delivery Method Room Air 11/05/25 12:32 Temperature 98.0 F Temperature Source Pulse Rate 51 L Respiratory Rate 16 Respiratory Pattern Blood Pressure 125/93 H Blood Pressure Mean Blood Pressure Source Blood Pressure Position Blood Pressure Location Baseline BP Pulse Ox 98 Oxygen Delivery Method Room Air Weight Weight: 142 lb 10.225 oz Body Mass Index (BMI) 26.1 Physical Exam Const alert, oriented x3, no apparent distress and healthy appearing General Appearance: cooperative GI normal to inspection, nondistended, normoactive bowel sounds, soft to palpation, non-tender and non-distended Percussion: normal to percussion Rectal Exam: deferred Assessment & Plan Assessment/Plan (1) Dysphagia: QUALIFIERS: Dysphagia type: esophageal phase Qualified Code(s): R13.19 - Other dysphagia (2) Achalasia: PLAN: Assessment and Plan Assessment and Plan (1) Dysphagia: Status: Acute Qualifiers: Dysphagia type: esophageal phase Qualified Code(s): R13.19 - Other dysphagia Plan: She underwent an upper endoscopy for esophageal dysphagia . findings: Abnormal motility was noted in the esophagus. The cricopharyngeus was normal. There is a decrease in motility of the esophageal body. The distal esophagus/lower esophageal sphincter is spastic, but gives up passage to the endoscope. Secondary peristaltic waves are noted. Area was successfully injected with 100 units botulinum toxin. A hiatal hernia was present. No other significant abnormalities were identified in a careful examination of the stomach. No gross lesions were noted in the first portion of the duodenum. Impression: - Abnormal esophageal motility, established achalasia. Injected with botulinum toxin. - Hiatal hernia. - No gross lesions in the first portion of the duodenum. - No specimens collected. Recommendation: -Repeat her upper endoscopy with Botox. She says that her dysphagia is much improved. 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 But for now she is doing very well. (2) GERD (gastroesophageal reflux disease): Status: Acute Plan: She is doing very well after undergoing EGD. She is not having any breakthrough reflux at this time. We will continue her on omeprazole 40 mg twice daily for the next 8 weeks and then see if we can titrate down to 40 mg once a day and possibly famotidine at night. (3) Hiatal hernia: Status: Acute (4) Staples esophagus: Status: Acute Plan: Continue PPI as ordered. ]
--- NOTE | 2025-11-05 13:00 | EGD_PTH ---
PATIENT: LUCIANO LOCO LOC: JOHN U#:[id number] AGE/SX: 59/F ROOM: RE11/05/[address]: Dr. Be Chapman DO : 1965 BED: DIS: 11/05/2025 SPEC #: [id number] RECD: 11/05/25 14:38 STATUS: VERÓNICA REQ #: [id number] JESSICA: 11/05/25 13:[address]: Be Chapman DEPT: SURGICAL PATHOLOGY RECD BY: Brendan Ribeiro ENTERED: 11/05/25 15:06 SP TYPE: EGD BIOPSY MACI DR: DO Keara Echeverria NP-Geeta Tissues: A - Esophagus, NOS Procedures: Immunohistochemical Stains Surgery Specimen Level IV HEADER OPERATION: EGD, biopsy, botox injection PRE-OP DIAGNOSIS: Achalasia TISSUE SUBMITTED: A. Distal esophagus MICROSCOPIC DIAGNOSIS A. Esophagus, distal, biopsy: - Columnar mucosa with focal goblet cell metaplasia. - Negative for dysplasia. - No squamous mucosa observed. - IHC for H pylori is pending and will be reported in an addendum. MICROSCOPIC DESCRIPTION Slides are reviewed. GROSS DESCRIPTION A. Received is one container labeled with the patient name and designated distal esophagus. The specimen consists of multiple irregular fragments of segura tissue that in aggregate measure 0.9 x 0.8 x 0.1 cm. The specimen is totally submitted in one cassette. [place] 11/05/2025 CPT:05309,37425 ADDENDUM ADDENDUM ADDENDUM ADDENDUM ADDENDUM ADDENDUM ADDENDUM ADDENDUM ADDENDUM ADDENDUM ADDENDUM ADDENDUM 11/18/2025 10:36 ADDENDUM 11/18/2025 10:36 ADDENDUM 11/18/2025 10:36 ADDENDUM 11/18/2025 10:36 ADDENDUM 11/18/2025 10:36 This addendum is to report the IHC for H pylori: A. IHC negative for H. pylori organisms. All matched controls reacted appropriately. These tests were developed and their performance characteristics determined by [facility]. They may not have been cleared or approved by the U.S. Food and Drug Administration. The FDA has determined that such clearance or approval is not necessary. The above immunohistochemical markers and/or special?stains have been reviewed by the Pathologist.
[2025-11-05] MEDS: 0.9% Saline Lock 10 ML Syringe IV (13:53)
[2025-11-05] MEDS: 0.9% Normal Saline (Pres. free 10 ML Vial (13:53)
--- NOTE | 2025-11-05 14:05 | OP.PROVAT_ITS ---
11/05/2025 Nayely Villalobos Re : Upper GI endoscopy procedure for Jazlyn Hernandez Dear Wilfredo This procedure was performed on Wednesday, November 05, 2025. My impressions and recommendations are as follows: Impressions : - Abnormal esophageal motility, established achalasia. Injected with botulinum toxin. 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 Biopsied. - No gross lesions in the entire stomach. - Normal examined duodenum. Recommendations : - Discharge patient to home. - Resume previous diet. - Continue present medications. - Await pathology results. My findings are described in the full procedure note, which is enclosed. If I can be of further assistance, please feel free to contact me at . Sincerely, Be Chapman, 11/05/2025 2:05:12 PM This report has been signed electronically.
--- NOTE | 2025-11-05 14:05 | OP.EGD_ITS ---
Patient Name: Jazlyn Hernandez Procedure Date: 11/05/2025 1:31 PM Date of : 1965 Age: 59 Procedure: Upper GI endoscopy Indications: Dysphagia, Esophageal reflux Providers: Be Chapman DO Referring MD: Nayely Villalobos Medicines: Monitored Anesthesia Care Patient Profile: This is a 59 year old female. Refer to note in patient chart for documentation of history and physical. Patient has symptoms of dysphagia with both liquids and solids. Complications: No immediate complications. Procedure: Pre-Anesthesia Assessment: - Prior to the procedure, a History and Physical was performed, and patient medications and allergies were reviewed. The patient is competent. The risks and benefits of the procedure and the sedation options and risks were discussed with the patient. All questions were answered and informed consent was obtained. Patient identification and proposed procedure were verified by the physician in the pre-procedure area. Mental Status Examination: alert and oriented. Airway Examination: normal oropharyngeal airway and neck mobility. Respiratory Examination: clear to auscultation. CV Examination: normal. Prophylactic Antibiotics: The patient does not require prophylactic antibiotics. Prior Anticoagulants: The patient has taken no anticoagulant or antiplatelet agents. ASA Grade Assessment: II - A patient with mild systemic disease. After reviewing the risks and benefits, the patient was deemed in satisfactory condition to undergo the procedure. The anesthesia plan was to use monitored anesthesia care (MAC). Immediately prior to administration of medications, the patient was re-assessed for adequacy to receive sedatives. The heart rate, respiratory rate, oxygen saturations, blood pressure, adequacy of pulmonary ventilation, and response to care were monitored throughout the procedure. The physical status of the patient was re-assessed after the procedure. After obtaining informed consent, the endoscope was passed under direct vision. Throughout the procedure, the patient's blood pressure, pulse, and oxygen saturations were monitored continuously. The Endoscope was introduced through the mouth, and advanced to the second part of duodenum. The upper GI endoscopy was accomplished without difficulty. The patient tolerated the procedure well. Scope In: 1:49:51 PM Scope Out: 1:56:31 PM Total Procedure Duration Time 0 hours 6 minutes 40 seconds Findings: Abnormal motility was noted in the lower third of the esophagus. The cricopharyngeus was normal. There are extra peristaltic waves in the esophageal body. The distal esophagus/lower esophageal sphincter is spastic, but gives up passage to the endoscope. Secondary peristaltic waves are noted. Area was successfully injected with 100 units botulinum toxin. There were esophageal mucosal changes secondary to established short-segment Staples's disease present in the lower third of the esophagus. The maximum longitudinal extent of these mucosal changes was 3 cm in length. Mucosa was biopsied with a cold forceps for histology in a targeted manner at intervals of 1 cm in the lower third of the esophagus. One specimen bottle was sent to pathology. Verification of patient identification for the specimen was done. Estimated blood loss was minimal. No gross lesions were noted in the entire examined stomach. The examined duodenum was normal. Impression: - Abnormal esophageal motility, established achalasia. Injected with botulinum toxin. 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 Biopsied. - No gross lesions in the entire stomach. - Normal examined duodenum. Recommendation: - Discharge patient to home. - Resume previous diet. - Continue present medications. - Await pathology results. Procedure Code(s): --- Professional --- 08210, Esophagogastroduodenoscopy, flexible, transoral; with biopsy, single or multiple 04675, 59,51, Esophagogastroduodenoscopy, flexible, transoral; with directed submucosal injection(s), any substance CPT copyright 2021 [employer]. All rights reserved. The codes documented in this report are preliminary and upon communication equipment repairer review may be revised to meet current compliance requirements. Be Chapman DO 11/05/2025 2:05:12 PM This report has been signed electronically. Number of Addenda: 0 Note Initiated On: 11/05/2025 1:31 PM
--- NOTE | 2025-11-05 14:07 | PCM.POST.ANE ---
Anesthesia: Postop Eval I Current Vital Signs Temperature: 97.7 F Pulse Rate: 77 Blood Pressure: 110/80 Respiratory Rate: 16 Pulse Ox: 96 Oxygen Delivery Method: Room Air Assessment Airway patent: Yes Spontaneous unlabored respirations: Yes Mental status: Asleep nausea: No Vomiting: No Anesthesia Complication: No Fluid Hydration Crystalloid volume administer (ml): 400 Total IV fluid infused: 400 Progress Note Anesthesia document: Postop Eval 1 completed: Yes
--- NOTE | 2025-11-05 18:17 | PCM.POSTANE2 ---
Anesthesia Postop Eval I Sum Postop Eval Completion status Anesthesia document: Postop Eval 1 completed: Yes Anesthesia Postop Eval I Summary Anesthesia Postop Eval I Summary: Anesthesia Postop Eval I: Assessment Summary Airway patent Yes 11/05/25 14:08 [email or web address] Spontaneous unlabored Yes 11/05/25 14:08 [email or web address] respirations Mental status Asleep 11/05/25 14:08 [email or web address] nausea No 11/05/25 14:08 [email or web address] Vomiting No 11/05/25 14:08 [email or web address] Anesthesia Postop Eval I: Fluid Summary Crystalloid volume administer 400 11/05/25 14:08 [email or web address] (ml) Colloids volume administered ( ml) Blood Product volume administered (ml) Total IV fluid infused 400 11/05/25 14:08 [email or web address] Anesthesia Postop Eval I: Summary Notes Anesthesia Complication No 11/05/25 14:08 [email or web address] Anesthesia Complication Comment: Post-operative progress note Anesthesia: Postop Eval II Evaluation Mental status: Awake and Calm Pain Level: 0 nausea: No Vomiting: No Complications Anesthesia Complication: No
== END 2025-11-05 15:14 | disposition home or self-care (01) ==
LOC: EN 10:46 → AC 10:48
PROVIDERS: Visit Provider Internal Medicine Gastroenterology
PROC: 0DJ08ZZ Inspection of Upper Intestinal Tract, Via Natural or Artificial Opening Endoscopic (ICD-10-PCS; CPT 43235; principal; 2025-11-05 12:55)
DX: K22.0 Achalasia of cardia (principal); J44.9 Chronic obstructive pulmonary disease, unspecified; R13.10 Dysphagia, unspecified; K44.9 Diaphragmatic hernia without obstruction or gangrene; K22.70 Barrett's esophagus without dysplasia; Z79.51 Long term (current) use of inhaled steroids; I10 Essential (primary) hypertension; Z79.82 Long term (current) use of aspirin; E78.00 Pure hypercholesterolemia, unspecified; Z90.710 Acquired absence of both cervix and uterus; Z79.899 Other long term (current) drug therapy; K21.9 Gastro-esophageal reflux disease without esophagitis; G43.909 Migraine, unspecified, not intractable, without status migrainosus; Z95.5 Presence of coronary angioplasty implant and graft; K30 Functional dyspepsia; K31.A19 Gastric intestinal metaplasia without dysplasia, unspecified site
CPT/HCPCS: 43239; 43236; 88305; 88342; A4216; J0585; J2405